=== PATIENT | male | born 1935 | race Caucasian/White ===

== ENCOUNTER 2017-10-12 08:20 | Inpatient (IN) | payer OTHER, MEDICARE ==
--- NOTE | 2017-10-12 08:39 | CPEKG ---
Heart Rate: 110 RR Interval: 545 QRSD Interval: 96 QT Interval: 380 QTC Interval: 515 QRS Bowler: 7 EKG Severity - ABNORMAL ECG - EKG Impression: ATRIAL FIBRILLATION, V-RATE 86-138 EKG Impression: VENTRICULAR PREMATURE COMPLEX EKG Impression: LEFT VENTRICULAR HYPERTROPHY EKG Impression: PROLONGED QT INTERVAL Electronically Signed By: Margi Edwards 12-Oct-2017 15:16:09
[2017-10-12 09:26] LABS: PLATELET COUNT 199 10^3/uL (150-400)
--- NOTE | 2017-10-12 09:34 | EDPHY ---
H & P Stated Complaint: SOB Time Seen by Provider: 10/12/17 08:43 HPI/ROS: CHIEF COMPLAINT: Shortness of breath HISTORY OF PRESENT ILLNESS: 82-year-old male with a history of hypertension and newly diagnosed atrial fibrillation presents with shortness of breath. He was diagnosed with atrial fibrillation 1 month ago. He started metoprolol and Coumadin 1 week ago. He also stopped taking hydrochlorothiazide 1 week ago. Over the past week, he has had difficulty sleeping because of shortness of breath. He wakes in the middle of the night very short of breath and needs to sit up to control his breathing. Last night was particularly difficult. He woke at 2:00 a.m. with shortness of breath and was unable to go back to sleep. No exertional shortness of breath, no chest pain and no leg swelling. No prior similar sx. REVIEW OF SYSTEMS: complete 10 point ROS negative except at noted in the HPI - Personal History Current Tetanus/Diphtheria Vaccine: Yes Current Tetanus Diphtheria and Acellular Pertussis (TDAP): Yes - Medical/Surgical History Hx Asthma: No Hx Chronic Respiratory Disease: No Hx Diabetes: No Hx Cardiac Disease: Yes Hx Renal Disease: No Hx Cirrhosis: No Hx Alcoholism: No Hx HIV/AIDS: No Hx Splenectomy or Spleen Trauma: No Other PMH: htn, previous nosebleed, afib - Social History Smoking Status: Never smoked - Physical Exam Exam: General Appearance: Alert, pleasant Eyes: Pupils equal and round, no conjunctival pallor or injection ENT, Mouth: Mucous membranes moist Neck: Normal inspection Respiratory: Normal respiratory rate, Rales at the right base Cardiovascular: Irregularly irregular rate and rhythm Gastrointestinal: Abdomen is soft and nontender Neurological: A&O, nonfocal exam Skin: Warm and dry, no rash Extremities: Nontender, no pedal edema Psychiatric: Mood and affect normal Constitutional: Initial Vital Signs Temperature (C) 37 C 10/12/17 08:29 Heart Rate 98 10/12/17 08:29 Respiratory Rate 16 10/12/17 08:29 Blood Pressure 173/126 H 10/12/17 08:29 O2 Sat (%) 95 10/12/17 08:29 O2 Delivery Mode Room Air Allergies/Adverse Reactions: No Known Allergies Allergy (Unverified 05/07/15 11:27) Home Medications: Medication Instructions Recorded Metoprolol Tartrate [Lopressor 25 25 mg PO BID 10/12/17 mg (*)] Warfarin Sodium [Coumadin 5MG (*)] 5 mg PO SUMOWEFRSA@18 10/12/17 Warfarin Sodium [Coumadin 7.5MG 7.5 mg PO TUTH@18 10/12/17 (*)] Medical Decision Making - Diagnostics EKG Interpretation: EKG interpreted by me reveals atrial fibrillation, ventricular rate 110, PVC, LVH. Interpretation: Abnormal EKG Imaging Results: Imaging Impressions Chest X-Ray 10/12/17 09:18 Impression: 1. Right lower lobe pneumonia. 2. Recommend follow up until clear. Findings and recommendations discussed with Emergency Department physician, Dr. Margi Edwards at 1025 hours on October 12, 2017. Final report concurs with initial preliminary interpretation. ED Course/Re-evaluation: This patient presents with paroxysmal nocturnal dyspnea over the past few nights , after starting metoprolol. He is currently asymptomatic, with a normal oxygen saturation. Stat EKG reveals atrial fibrillation with a controlled rate , no ischemic changes. Chest x-ray discussed with Dr. Vasquez. Chest x-ray reveals a possible right lower lobe pneumonia. Clinically this patient does not have pneumonia. He has no respiratory symptoms, no fever and no leukocytosis. His presentation is most consistent with congestive heart failure related to atrial fibrillation and possibly beta-blockers. Troponin is in the indeterminate range. EKG reveals no evidence of ischemia. Laboratory results discussed with the patient and his . BNP elevated. Will admit for congestive heart failure. Nitropaste placed and Lasix IV given. The hospitalist service was consulted for admission. 1215: pt had a sustained run of Vtach. Pt felt a head zambrano, but remained alert. BP normal immediately after the episode. Spontaneously converted to Afib. Consulted Dr. Arevalo, will see pt in ED/ICU. Amiodarone 150mg IV given, followed by Amiodarone drip. Pt moved to critical care room and defib pads placed. The patient was seen by Dr. Arevalo in the emergency department. Stat echocardiogram revealed an ejection fraction of 40%. The patient was taken to the laboratory mechanical technician for cardiac catheterization. No further episodes of ventricular tachycardia. I spent a total of 40 minutes of critical care time in obtaining history, performing a physical exam, bedside monitoring of interventions, collecting and interpreting tests and discussion with consultants but not including time spent performing procedures. Organ at risk: Heart Differential Diagnosis: Differential diagnosis includes though it is not limited to pneumonia, pneumothorax, pulmonary embolism, aortic dissection, pericarditis, acute coronary syndrome. - Data Points Laboratory Results: Laboratory Results 10/12/17 08:40 10/12/17 08:40 10/12/17 10/12/17 08:40 08:40 WBC 6.91 10^3/uL 10^3/uL (3.80-9.50) RBC 5.64 10^6/uL 10^6/uL (4.40-6.38) Hgb 17.0 g/dL g/dL (13.7-17.5) Hct 50.8 % % (40.0-51.0) MCV 90.1 fL fL (81.5-99.8) MCH 30.1 pg pg (27.9-34.1) MCHC 33.5 g/dL g/dL (32.4-36.7) RDW 13.6 % % (11.5-15.2) Plt Count 199 10^3/uL 10^3/uL (150-400) MPV 10.8 fL fL (8.7-11.7) Neut % (Auto) 70.3 % % (39.3-74.2) Lymph % (Auto) 20.8 % % (15.0-45.0) [place] % (Auto) 7.4 % % (4.5-13.0) Eos % (Auto) 0.6 % % (0.6-7.6) Baso % (Auto) 0.6 % % (0.3-1.7) Nucleat RBC Rel Count 0.0 % % (0.0-0.2) Absolute Neuts (auto) 4.86 10^3/uL 10^3/uL (1.70-6.50) Absolute Lymphs (auto) 1.44 10^3/uL 10^3/uL (1.00-3.00) Absolute Monos (auto) 0.51 10^3/uL 10^3/uL (0.30-0.80) Absolute Eos (auto) 0.04 10^3/uL 10^3/uL (0.03-0.40) Absolute Basos (auto) 0.04 10^3/uL 10^3/uL (0.02-0.10) Absolute Nucleated RBC 0.00 10^3/uL 10^3/uL (0-0.01) Immature Gran % 0.3 % % (0.0-1.1) Immature Gran # 0.02 10^3/uL 10^3/uL (0.00-0.10) Sodium 144 mEq/L mEq/L (135-145) Potassium 4.9 mEq/L mEq/L (3.5-5.2) Chloride 105 mEq/L mEq/L (97-110) Carbon Dioxide 24 mEq/l mEq/l (22-31) Anion Gap 15 mEq/L mEq/L (8-16) BUN 28 mg/dL H mg/dL (7-23) Creatinine 1.3 mg/dL mg/dL (0.7-1.3) Estimated GFR 53 Glucose 108 mg/dL H mg/dL (70-100) Calcium 9.5 mg/dL mg/dL (8.5-10.4) Troponin I 0.055 ng/mL H ng/mL (0.000-0.034) NT-Pro-B Natriuret Pep 3750 pg/mL H pg/mL (0-450) Medications Given: Hydrocodone Bitart/Acetaminophen ([place] 5/325) 1 - 2 tab PO Q4HRS PRN PRN Reason: Pain, Moderate Stop: 10/22/17 16:05 Last Admin: 10/12/17 20:52 Dose: 1 tab Metoprolol Tartrate (Lopressor) 25 mg PO BID ANGELA Stop: 04/10/18 20:59 Last Admin: 10/12/17 20:52 Dose: 25 mg Discontinued Medications Aspirin Buffered (Aspirin Ec) 325 mg PO ONCALL ONE Stop: 10/12/17 13:07 Last Admin: 10/12/17 17:06 Dose: Not Given Diazepam (Valium) 5 mg PO ONCALL ONE Stop: 10/12/17 13:07 Last Admin: 10/12/17 17:07 Dose: Not Given Diphenhydramine HCl (Benadryl) 25 mg PO ONCALL ONE Stop: 10/12/17 13:07 Last Admin: 10/12/17 17:08 Dose: Not Given Famotidine (Pepcid) 20 mg PO ONCALL ONE Stop: 10/12/17 13:07 Last Admin: 10/12/17 17:08 Dose: Not Given Furosemide (Lasix Injection) 20 mg IVP EDNOW ONE Stop: 10/12/17 10:38 Last Admin: 10/12/17 10:42 Dose: 20 mg Amiodarone HCl (Amiodarone Hcl) 200 mls @ 0 mls/hr IV EDNOW ONE; Per Protocol PRN Reason: Protocol Stop: 10/12/17 12:16 Last Admin: 10/12/17 12:39 Dose: 200 mls Amiodarone HCl (Amiodarone Hcl) 100 mls @ 600 mls/hr IV EDNOW ONE Stop: 10/12/17 12:24 Last Admin: 10/12/17 12:25 Dose: 100 mls Nitroglycerin (Nitro-Bid 2%) 1 inch TP EDNOW ONE Stop: 10/12/17 10:38 Last Admin: 10/12/17 10:42 Dose: 1 inch Departure - Departure Disposition: To OP Cath/Surgery Clinical Impression: Ventricular tachycardia Congestive heart failure Qualifiers: Heart failure type: systolic Heart failure chronicity: acute Qualified Code(s) : I50.21 - Acute systolic (congestive) heart failure Condition: Serious
[2017-10-12] MEDS ORDERED: NITROGLYCERIN 2% 1 GM PACKET TP ONE (10:37)
[2017-10-12] MEDS ORDERED: FUROSEMIDE 20 MG/2 ML VIAL IVP ONE (10:37)
[2017-10-12] MEDS ORDERED: AMIODARONE HCL 200 ML IV ONE (12:15)
[2017-10-12] MEDS ORDERED: AMIODARONE HCL 100 ML IV ONE (12:15)
--- NOTE | 2017-10-12 12:28 | CPEKG ---
Heart Rate: 80 RR Interval: 750 QRSD Interval: 98 QT Interval: 420 QTC Interval: 485 QRS [place]: -16 T Wave [place]: 17 EKG Severity - ABNORMAL ECG - EKG Impression: ATRIAL FIBRILLATION, V-RATE 57-103 EKG Impression: LVH WITH SECONDARY REPOLARIZATION ABNORMALITY EKG Impression: BORDERLINE PROLONGED QT INTERVAL Electronically Signed By: Margi Edwards 12-Oct-2017 15:14:42
--- NOTE | 2017-10-12 12:53 | PDCARCONS ---
Cardiology Consult Reason for Consult: Wide complex tachycardia on telemetry Chief Complaint: Fullness in the head Requesting Physician: ER Team History of Present Illness: Patient is an 82 y/o male with history of HTN (on HCTZ alone), with newly diagnosed atrial fibrillation (followed by [facility] with recent start on coumadin therapy, with rhythm monitor and echocardiogram pending), who presented to [facility] with complaints of feeling poorly to the pharmacy coumadin clinic earlier today. Patient reports that for the past 4-6 days there has been a "fullness" in his head as well as an overall "warmth" sensation to the head. In the ER today, blood pressure is quite elevated (150/120 mm Hg). When questioned further, patient's chief complaint of shortness of breath with limited activity. Start on coumadin led to the patient drawing the conclusion that the symptoms currently noted might be secondary to the newly started medical therapy. No lower extremity swelling, but PND and orthopnea has been noted. Patient was scheduled for a formal sleep study in near future given the newly diagnosed atrial fibrillation. No abnormal bleeding has been noted at present, but the patient has had issues with epistaxis in the past (not while on coumadin). At present, the patient is resting comfortably, but while in the ER, on telemetry, the patient appreciated his typical "fullness" and "shortness of breath", and VT was noted on telemetry (recorded, not likely to be atrial fibrillation with aberrant conduction). No fevers or chills, no nausea or emesis, no chest pains or pressure. Remainder of the 12 point review of systems was unremarkable. History Information - Allergies/Home Medication List Allergies/Adverse Reactions: No Known Allergies Allergy (Unverified 05/07/15 11:27) Home Medications: Metoprolol Tartrate [Lopressor 25 mg (*)] 25 mg PO BID 10/12/17 [Last Taken 21:00] Warfarin Sodium [Coumadin 5MG (*)] 5 mg PO SUMOWEFRSA@10/12/17 [Last Taken ] Warfarin Sodium [Coumadin 7.5MG (*)] 7.5 mg PO TUTH@18 10/12/17 [Last Taken Unknown] I have personally reviewed and updated: family history, medical history, social history, surgical history Past Medical History: - Past Medical History atrial fibrillation, hypertension - Surgical History Reports: no pertinent surgical hx - Family History Positive for: CAD, hypertension, stroke - Social History Smoking Status: Never smoked Alcohol Use: Other (Guinness at lunch routinely) Drug Use: None Cardiac History - Cardiac History Cardiac Risk Factors: hypertension (>140/90), family history of premature CAD, age > 65, male Timing/Duration: Days Severity: moderate Severity Scale: 5 Location: other (fullness to the head) Activities at Onset: none Modifying Factors: improves with: breathing, rest Associated Symptoms: shortness of breath, weakness JESSEE Risk Evaluation age greater or equal to 65: yes greater or equal to 3 CAD risk factors: no known CAD(stenosis greater or eqaul to 50%): no ASA use in past 7 days: yes severe angina(greater or equal to 2 episodes in 24hrs): no EKG ST changes greater or equal to 0.5mm: no positive cardiac marker: yes Total Score: 3 JESSEE Score: 13.2% risk Age in Years: 75 or older Sex: Male Congestive Heart Failure History: No Hypertension History: Yes Stroke/TIA/Thromboembolism History: No Vascular Disease History: No Diabetes Mellitus: No [id number] Score: 3 Physical Exam Physical Exam: Temp Pulse Resp BP Pulse Ox 36.8 C 74 16 162/110 H 93 10/12/17 12:37 10/12/17 12:37 10/12/17 12:37 10/12/17 12:37 10/12/17 12:37 Constitutional: no apparent distress, appears nourished, not in pain Eyes: PERRL Ears, Nose, Mouth, Throat: moist mucous membranes, hearing normal Cardiovascular: irregularly irregular, pulses symmetric bilaterally, No JVD, No tachycardia, No edema Peripheral Pulses: 2+: dorsalis-pedis (R), dorsalis-pedis (L) Respiratory: no respiratory distress, no rales or rhonchi, clear to auscultation Gastrointestinal: normoactive bowel sounds Skin: warm, No rash Musculoskeletal: full muscle strength Neurologic: AAOx3, sensation intact bilaterally, CN II-XII Intact Psychiatric: interacting appropriately, not anxious, not encephalopathic Lab and Imaging 10/12/17 08:40 10/12/17 08:40 WBC 6.91 10^3/uL (3.80-9.50) 10/12/17 08:40 RBC 5.64 10^6/uL (4.40-6.38) 10/12/17 08:40 Hgb 17.0 g/dL (13.7-17.5) 10/12/17 08:40 Hct 50.8 % (40.0-51.0) 10/12/17 08:40 MCV 90.1 fL (81.5-99.8) 10/12/17 08:40 MCH 30.1 pg (27.9-34.1) 10/12/17 08:40 MCHC 33.5 g/dL (32.4-36.7) 10/12/17 08:40 RDW 13.6 % (11.5-15.2) 10/12/17 08:40 Plt Count 199 10^3/uL (150-400) 10/12/17 08:40 MPV 10.8 fL (8.7-11.7) 10/12/17 08:40 Neut % (Auto) 70.3 % (39.3-74.2) 10/12/17 08:40 Lymph % (Auto) 20.8 % (15.0-45.0) 10/12/17 08:40 [place] % (Auto) 7.4 % (4.5-13.0) 10/12/17 08:40 Eos % (Auto) 0.6 % (0.6-7.6) 10/12/17 08:40 Baso % (Auto) 0.6 % (0.3-1.7) 10/12/17 08:40 Nucleat RBC Rel Count 0.0 % (0.0-0.2) 10/12/17 08:40 Absolute Neuts (auto) 4.86 10^3/uL (1.70-6.50) 10/12/17 08:40 Absolute Lymphs (auto) 1.44 10^3/uL (1.00-3.00) 10/12/17 08:40 Absolute Monos (auto) 0.51 10^3/uL (0.30-0.80) 10/12/17 08:40 Absolute Eos (auto) 0.04 10^3/uL (0.03-0.40) 10/12/17 08:40 Absolute Basos (auto) 0.04 10^3/uL (0.02-0.10) 10/12/17 08:40 Absolute Nucleated RBC 0.00 10^3/uL (0-0.01) 10/12/17 08:40 Immature Gran % 0.3 % (0.0-1.1) 10/12/17 08:40 Immature Gran # 0.02 10^3/uL (0.00-0.10) 10/12/17 08:40 Sodium 144 mEq/L (135-145) 10/12/17 08:40 Potassium 4.9 mEq/L (3.5-5.2) 10/12/17 08:40 Chloride 105 mEq/L (97-110) 10/12/17 08:40 Carbon Dioxide 24 mEq/l (22-31) 10/12/17 08:40 Anion Gap 15 mEq/L (8-16) 10/12/17 08:40 BUN 28 mg/dL (7-23) H 10/12/17 08:40 Creatinine 1.3 mg/dL (0.7-1.3) 10/12/17 08:40 Estimated GFR 53 10/12/17 08:40 Glucose 108 mg/dL (70-100) H 10/12/17 08:40 Calcium 9.5 mg/dL (8.5-10.4) 10/12/17 08:40 Troponin I 0.055 ng/mL (0.000-0.034) H 10/12/17 08:40 NT-Pro-B Natriuret Pep 3750 pg/mL (0-450) H 10/12/17 08:40 Visualized and Interpreted Chest x-ray results: Yes Chest X-ray Interpretation: no infiltrate, normal Visualized and Interpreted EKG results: Yes EKG Interpretation: Positive for: other (atrial fibrillation) A/P Assessment: Patient is an 82 y/o male with history of HTN (on therapy) and rather newly noted atrial fibrillation (on coumadin, INR of 1.7 with [id number] score of 3) , who presents to [facility] ER after being seen by pharm coumadin clinic with complaints of "feeling poorly". While in the ER, the patient had a protracted run of VT. Symptoms were noted with this event, and were quite similar to that which has been noted for the past 3-4 days. Ongoing rhythm monitor (attached to the patient this morning), and outpatient echo has been scheduled. Plan: (1) Recommendations for echocardiogram now for assessment of LVEF, wall motion , chamber dimensions, and valve morphology (2) Likely angiography today given the symptoms and the appreciated VT in the ER (3) Would continue HCTZ, but more aggressive therapy is indicated (4) Would continue coumadin (manipulation of therapy is underway to achieve therapeutic levels) (5) Further recommendations as work up continues.
[2017-10-12] MEDS ORDERED: FAMOTIDINE 20 MG TAB PO ONE (13:06)
[2017-10-12] MEDS ORDERED: ASPIRIN EC 325 MG TAB PO ONE (13:06)
[2017-10-12] MEDS ORDERED: DIAZEPAM 5 MG TAB PO ONE (13:06)
[2017-10-12] MEDS ORDERED: TEMAZEPAM 15 MG CAP PO PRN (13:06)
[2017-10-12] MEDS ORDERED: NITROGLYCERIN 0.4 MG BTL SL PRN ×2 (13:06→16:06)
[2017-10-12] MEDS ORDERED: ACETAMINOPHEN 325 MG TAB PO PRN (13:06)
[2017-10-12] MEDS ORDERED: diphenhydrAMINE 25 MG CAP PO ONE (13:06)
[2017-10-12] MEDS ORDERED: NS 1,000 ML IV SCH (13:15)
[2017-10-12 13:26] LABS: PLATELET COUNT 169 10^3/uL (150-400)
--- NOTE | 2017-10-12 13:37 | PDPROPOC ---
Sedation Plan of Care Sedation Plan of Care: vital signs stable, mental status noted, patient educated of risks, benefits, alternatives, patient can tolerate sedation ASA Classification: ASA 3 Planned drugs: fentanyl, midazolam Mallampati Score: Class 3 Mallampati Reference Image: Patient passed 3-3-2 rule?: Yes
[2017-10-12 13:39] LABS: INR 1.57 (0.83-1.16); PROTIME(PATIENT) 18.9 SEC (12.0-15.0)
[2017-10-12] MEDS ORDERED: LIDOCAINE 1% 300 MG/30 ML SDV ONE ×2 (13:41→15:00)
[2017-10-12] MEDS ORDERED: IOPAMIDOL (ISOVUE-370) 150 ML BTL IV ONE ×2 (13:41→15:11)
[2017-10-12] MEDS ORDERED: MIDAZOLAM 2 MG/2 ML VIAL ONE (14:24)
[2017-10-12] MEDS ORDERED: fentaNYL 100 MCG/2 ML INJ ONE ×2 (14:24→15:31)
[2017-10-12] MEDS ORDERED: METOPROLOL TARTRATE 5 MG/5 ML INJ ONE ×2 (14:28→14:38)
[2017-10-12] MEDS ORDERED: VERAPAMIL 5 MG/2 ML VIAL ONE (14:57)
[2017-10-12] MEDS ORDERED: HEPARIN 10,000 UNIT/10 ML MDV (1,000 UNIT/ML) ONE (14:57)
--- NOTE | 2017-10-12 15:08 | ECHO ---
[email or web address] [address] [address] Main: [phone] Fax: Transthoracic Echocardiogram Name: MINGO ISRAEL MR#: [id number] Study Date: 10/12/2017 Study Time: 01:37 PM Date of : 1935 Age: 82 year(s) Height: 175.3 cm (69 in.) Weight: 73.94 kg (163 lb.) BSA: 1.89 m2 Gender: Male Examination: Echo Indication: V-tach, PNA Image Quality: Contrast: Requested by: Margi Edwards BP: 148 mmHg/110 mmHg Heart Rate: Rhythm: Indication: V-tach, PNA Procedure Staff Account Installation Specialist: Aleks Benton RDCS Reading Physician: Endy Arevalo MD Requesting Provider: Conclusions: Normal size left ventricle. Mildly to moderately reduced systolic funtion. The ejection fraction is estimated to be 35-40 %. There is basilar to mid anteroseptum hypokinesis. There is basilar to mid inferoseptal hypokinesis. Normal size right ventricle. The left atrium is severely dilated. The right atrium is severely dilated. Mild mitral valve leaflet calcification is present. The aortic valve is tri-leaflet and functions normally. Mild aortic valve regurgitation is present. The pulmonary artery pressure is mildly increased. No pericardial effusion. Measurements: Chambers Valvular Assessment AV/MV Valvular Assessment TV/PV Normal Normal Normal Name Value Range Name Value Range Name Value Range Ao Deena (MM): 4.2 cm (2.2 cm-3.7 AV Vmax: 1.02 m/s (1 m/s-1.7 TR Vmax: 3.01 mm/s ( - ) cm) m/s) TR PGmax: 36 mmHg ( - ) IVSd (2D): 1.4 cm (0.6 cm-1.1 AV maxP mmHg ( - ) syst. PAP: 41 mmHg ( - ) cm) LVOT Vmax: 0.76 m/s (0.7 m/s-1.1 LVDd (2D): 4.5 cm (4.2 cm-5.9 m/s) cm) AR (PHT): 759 ms ( - ) LVDs (2D): 3.8 cm (2.1 cm-4 MV E Vmax: 0.89 m/s ( - ) cm) MV A Vmax: 0.37 m/s ( - ) LVPWd (2D): 1.3 cm (0.6 cm-1 MV E/A: 2.41 ( - ) cm) LVEF (2D): 35 (>=54 %) EF Range: 35-40 % Patient: MINGO ISRAEL Study Date: 10/12/2017 Page 1 of 2 01:37 PM Continued Measurements: Chambers Valvular Assessment AV/MV Valvular Assessment TV/PV Name Value Name Value Name Value LADs Lon.2 cm MV E/E' Septal: 22.80 CVP (est.): 5 mmHg LA Area: 27.1 cm2 MV E/E' Lateral: 14.90 LA Volume: 98 ml AR Vmax: 4.34 cm/s LA Volume Index: 51.9 ml/m2 Findings: Left Ventricle: Normal size left ventricle. Mildly to moderately reduced systolic funtion. The ejection fraction is estimated to be 35-40 %. There is basilar to mid anteroseptum hypokinesis. There is basilar to mid inferoseptal hypokinesis. Right Ventricle: Normal size right ventricle. Left Atrium: The left atrium is severely dilated. Right Atrium: The right atrium is severely dilated. Mitral Valve: Mild mitral valve leaflet calcification is present. Aortic Valve: The aortic valve is tri-leaflet and functions normally. Mild aortic valve regurgitation is present. Tricuspid Valve: Mild tricuspid regurgitation is present. The pulmonary artery pressure is mildly increased. Pulmonic Valve: The pulmonic valve is normal in appearance and function. Aorta: The aorta is normal. Pericardium: No pericardial effusion. (No Signature Object) Patient: MINGO ISRAEL Study Date: 10/12/2017 Page 2 of 2 01:37 PM [id number]
[2017-10-12] MEDS ORDERED: NITROGLYCERIN 0.4 MG BTL SL ONE (15:14)
--- NOTE | 2017-10-12 15:18 | PDDXCAT ---
Diagnostic Cath Note - . Date: 10/12/17 Dental Front Office Assistant: Kathi Indication: other (The patient was feeling short of breath and head fullness. He was found to be in VT on telemetry. ) - Procedure Access: left wrist Procedure: left heart catheterization, coronary angiography, left ventriculogram - Materials Left Heart Cath materials: standard multipack (JL4, JR4, pigtail) - Findings-Left Heart Catheterization LM: LM is 8mm in size and birfurcates into an LAD and circumflex system. JESSEE III flow. LAD: There is a long tubular 50% stenosis in the ostial and proximal LAD that is calcified. There is a 95% stenosis of the second and principle diagonal at the takeoff of the LAD. The first diag small vessel less than 1mm in size with 99% stenosis at its takeoff of the LAD. Distal to the second diag takeoff is a series of 50% stenoses. There is JESSEE III flow to the distal vessel. LCX: The left circumflex is 4 mm in size. There is a 40% ostial stenosis and a 30% proximal stenpsis. The circumflex is dominant. RCA: The RCA is nondominant. JESSEE III flow. EDP: 21 mmHg LVEF: The EF is decreased at 35%. There is basal inferior wall akinesis and distal anterior wall and apical wall hypokinesis, which is severe. There is evidence of 2-3+ MR on pressurized injection. 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 Complications: NONE. Estimated blood loss: <50ml Closure method: other (Dr. Bethea tried to get access from the right groin, which was very tortuous so he had to abandon the efra site as an avenue for heart cath. We held manual pressure at the efra site and used an angioseal closure device. I then gained access from the left radial access. 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 He has ostial d1 and d2 disease which may be the cause of his ischemia and or rhythm disturbance (ventricular tachycardia). His EF is markedly decreased at 35%. He is also severely hypertensive and has very tortuous iliac vessels, which precluded cath by Dr. Arevalo from the right femoral approach. On abdominal angiogram with bilateral iliac runoff there was profound iliac tortuosity bilaterally, worse on the right than the left. There was no alison aneurysm or dissection and no evidence of renal artery stenosis. The patient is severely hypertensive. Plan: The pt will require ICU admission because of NSVT and new onset atrial fibrillation. He is also severely hypertensive and may require intravenous anti- hypertensive agents for good control. Following straight cath because of inability to urinate while lying down in spite of a full bladder the patient became relatively hypotensive and bradycardic. The pt may benefit from a nuclear stress test if he is found to have anterior ischemia in the LAD territory, bypass surgery or complex intervention could be considered to repair the ostial principle diagonal branch and LAD proper. Intervention: NONE. Patient Problems: Problems Problem Status Onset Congestive heart failure Acute Ventricular tachycardia Acute Primary osteoarthritis of right knee Acute
[2017-10-12] MEDS ORDERED: niCARdipine 25 MG/10 ML VIAL IV ONE (15:36)
[2017-10-12] MEDS ORDERED: ATROPINE SULFATE 1 MG/10 ML SYR IVP PRN (16:06)
[2017-10-12] MEDS ORDERED: OXYCODONE/APAP 5/325 TAB PO PRN (16:06)
[2017-10-12] MEDS ORDERED: ONDANSETRON 4 MG/2 ML VIAL IVP PRN (16:06)
--- NOTE | 2017-10-12 18:36 | GHP ---
[f rep st] HISTORY AND PHYSICAL DATE OF ADMISSION: 10/12/2017 CHIEF COMPLAINT: Feeling poorly. HISTORY OF PRESENT ILLNESS: This is an 82-year-old man with a recent diagnosis of atrial fibrillatio n, seen by [facility]. He had been started on Coumadin as well as metoprolol. He went in for an INR check today, told his pharmacist some of his symptoms, was sent to the ED for further evaluation. He tells me that he has had this difficulty sleeping due to shortness of breath and a warm feeling. It seems to get better when he gets up out of bed. He has had to walk out on his balcony because i t was cooler out there. He notes a decrease in his functional capacity over the last 2-3 weeks with worsening fatigue as well as dyspnea while walking uphill. He does not note any chest pain. He pres ented to the ED with these findings, was initially diagnosed with new CHF. [facility] had an episode of ventricular tachycardia. This triggered a stat cardiology consultation as w ell as catheterization. In the catheterization, there was disease noted; however, it would have requ ired a very complicated intervention. He also had an EF of 35% with wall motion abnormalities. PAST MEDICAL/SURGICAL HISTORY: 1. Recently diagnosed atrial fibrillation. 2. Hypertension. MEDICATIONS: Please see medication reconciliation. ALLERGIES: No known drug allergies. FAMILY HISTORY: Parents are . SOCIAL HISTORY: He is accompanied by his partner. He drinks. He does not smoke. REVIEW OF SYSTEMS: 10-point review of systems is conducted and is negative except per HPI. PHYSICAL EXAM: VITAL SIGNS: Blood pressure 129/102, heart rate 61, respiration rate 20, saturating 96% on room air. Temperature 36.7. GENERAL: The patient is a pleasant man who is resting comfortab ly, in no acute distress. HEENT: Normocephalic, atraumatic. CARDIOVASCULAR: An irregularly irregu lar rhythm. There are no murmurs, rubs, or gallops. PULMONARY: He is in no respiratory distress. Lungs are clear to auscultation bilaterally. ABDOMEN: Soft, nontender, nondistended. SKIN: No kit h. : No Rojo. NEUROLOGIC: Alert and oriented x3. PSYCHIATRIC: Normal mood and affect. EXTRE MITIES: His left wrist has a TR band in place. LABS: Initial troponin 0.055. BNP is 3750. Creatinine 1.1. INR 1.57. CBC is normal. DATA: 1. Cath as above. 2. Echocardiogram showing an ejection fraction of 35% to 40%, basilar to mid anteroseptal hypokinesi s with basilar to mid inferoseptal hypokinesis. 3. ECG, which I personally viewed and interpreted, shows atrial fibrillation. There is nothing acut mere ischemic. 4. Chest x-ray, which I personally viewed and interpreted, shows nothing acute, although the radiolo gist has read a right lower lobe pneumonia. IMPRESSION AND PLAN: 1. Coronary artery disease: He has ostial diagonal 1 and diagonal 2 disease as well as a 50% left a nterior descending artery disease. He had an episode of nonsustained supraventricular tachycardia in the emergency department. Per Dr. Armenta, intervention would be complicated. He received a bolus o f amiodarone. He has received aspirin. We will continue his warfarin. Considering viability study. Bypass is also a consideration. 2. Atrial fibrillation: He is currently rate controlled. Continue his metoprolol as well as antico agulation which will be increased, given his slightly subtherapeutic INR. 3. Hypertension: Currently not significantly hypertensive. Cardiac medications will be appropriate . 4. Systolic congestive heart failure: He appears compensated at this point. He will need close fol lowing of this as well as up titration of beta jazmin and angiotensin-converting enzyme inhibitor as tolerated. 5. Deep venous thrombosis prophylaxis: Warfarin. /[id number]/MODL
[2017-10-12] MEDS: METOPROLOL TARTRATE 25 MG TAB PO SCH (20:52)
[2017-10-12] MEDS: HYDROCODONE/APAP 5/325 TAB PO PRN (20:52)
[2017-10-13 03:42] LABS: INR 1.55 (0.83-1.16); PROTIME(PATIENT) 18.7 SEC (12.0-15.0)
[2017-10-13] MEDS: METOPROLOL TARTRATE 25 MG TAB PO SCH ×2 (08:25→20:57)
--- NOTE | 2017-10-13 09:18 | HOSPPROG ---
Hospitalist Progress Note Assessment/Plan: # CAD - s/p cath complicated anatomy with diagonal disease and LAD disease without intervention - R groin arteries very serpiginous, not amenable to R groin approach - consideration for viability study # VT - about 50s in the ED; likely d/t ischemia # compensated sCHF - EF 35% - will need appropriate cardiac meds # a-fib - relatively new; rate better controlled s/p amiodarone - cont metop PO, warfarin (INR slightly low) # htn - controlled currently on metop Subjective: no complaints; asking about leaving the hospital; concerned about not being able to sail this summer Objective: Vital Signs Temp Pulse Resp BP Pulse Ox 37.1 C 95 21 H 126/90 H 90 L 10/13/17 08:00 10/13/17 08:25 10/13/17 08:00 10/13/17 08:25 10/13/17 08:00 Laboratory Results 10/12/17 13:15 10/13/17 03:15 10/12/17 10/13/17 10/14/17 05:59 05:59 05:59 Intake Total 1450 Output Total 2100 Balance -650 PT 18.7 SEC (12.0-15.0) H 10/13/17 03:15 INR 1.55 (0.83-1.16) H 10/13/17 03:15 high risk - Physical Exam Constitutional: no apparent distress, appears nourished Cardiovascular: no murmur, rub, or gallop, irregularly irregular Respiratory: no respiratory distress, no rales or rhonchi, clear to auscultation Gastrointestinal: normoactive bowel sounds, soft, non-tender abdomen, no palpable masses ICD10 Worksheet Patient Problems: Problems Problem Status Onset Primary osteoarthritis of right knee Acute Ventricular tachycardia Acute Congestive heart failure Acute
--- NOTE | 2017-10-13 09:51 | ASMTCASEMG ---
Living Arrangements What is your living Answers: With Spouse arrangement? Who do you live with? Type Of Residence What kind of residence do Answers: House you live in? Discharge Plan Comments Coordination Status Comments Notes: Patient is an 82yo male who recently was diagnosed with AFIB by [facility]. He was admitted for coronary artery disease, AFIB, hypertension, systolic congestive heart failure, and deep venous thrombosis prophylaxis. Cardiac cath and intervention cardiac procedure have been ordered. D/C plan TBD. CM will follow. Date Signed: 10/13/2017 09:50 AM Electronically Signed By:Kaylyn Villagomez LCSW
--- NOTE | 2017-10-13 12:42 | PDMN ---
Medical Necessity Medical necessity: est los>2mn for CAD, NSVT, severely hypertensive on admission , systolic CHF,and afib; emergent cath with [facility] vessel coronary disease w/ flow limiting obstruction; admit to ICU, adjust medications, consider CABG or complex intervention to repair ostial diag branch and LAD; per order, H&P and cath report 10/12/17
[2017-10-13] MEDS ORDERED: WARFARIN SODIUM 7.5 MG TAB PO ONE (17:15)
[2017-10-13] MEDS: HYDROCODONE/APAP 5/325 TAB PO PRN (20:57)
[2017-10-13] MEDS: ENOXAPARIN 80 MG/0.8 ML SYR SC SCH (21:11)
--- NOTE | 2017-10-13 21:16 | PDCARPN ---
Cardiology Progress Note Chief Complaint: Patient without cardiovascular complaints today Assessment/Plan: Assessment: Patient is an 82 y/o male [facility] after being told to proceed to ER after INR assessment. In the ER, the patient was noted to be in atrial fibrillation with rapid ventricular response. On telemetry, the patient was then noted to go into VT, with symptoms. No syncope was noted, but the patient was fully aware of the arrhythmia. Given these events, the patient was taken to the cardiac laborer/key man. Attempt at groin access was unsuccessful given the degree of tortuosity appreciated, and wrist access was achieved. Diffuse disease was noted to the LAD system. Moderate reduction to LVEF was also noted (30-35%). Review of the cath films with uncertain degree of stenosis to the LAD , but what appears to be critical lesions to the ostium of D1 and D2. The proximal and mid portion of the LAD also appeared to be diffusely diseased. Rate control has been noted with the addition of beta blockers. Lengthy discussion tonight with patient and and both myself and Dr. Sukhi Armenta about the complexity of the lesions, and our concerns about the arrhythmias noted - specifically the ventricular tachycardia. Ongoing use of coumadin for CVA prophylaxis given the newly noted atrial fibrillation (lovenox bridging in place while patient remains subtherapeutic). Plan: (1) Recommendations for patient to have Amarilis MPI tomorrow to delineate the ischaemia. If fixed (infarcted) regions are also noted, and are of significant percentage of the myocardium, would consider PET scan for viability. (2) Patient will be presented at Heart Team meeting with interventional and CT surgery review of the films to determine what is the best option from our perspective. Further discussion with the patient is also indicated after these conferences are completed. Patient was in agreement with the stress testing, but very much wanting to go home. Subjective: No cardiovascular complaints Reviewed/Discussed With: family, hospitalist Objective: Vital Signs (8 Hrs) Pulse Resp BP Pulse Ox 10/13/17 14:00 95 18 133/82 H 92 Intake/Output (24 Hrs) 10/12/17 10/13/17 10/14/17 05:59 05:59 05:59 Intake Total 1450 750 Output Total 2100 700 Balance -650 50 Intake: Oral (ml) 500 750 IV Infused (ml) 950 Ns 1,000 ml @ 75 mls/hr 800 IV CONT ANGELA Rx#: [id number] Output: Urine (ml) 2100 700 Urinal 700 700 Other: Weight 74 kg Number of Voids Urinal 1 Result Diagrams: 10/12/17 13:15 10/13/17 03:15 Telemetry: atrial fibrillation with controlled (<100 bpm) heart rate - Physical Exam Constitutional: WDWN, healthy appearing, no apparent distress Eyes: PERRL, EOMI Ears, Nose, Mouth, Throat: moist mucous membranes Cardiovascular: systolic murmur, irregularly irregular, pulses symmetric bilat Peripheral Pulses: 2+: dorsalis-pedis (R), dorsalis-pedis (L) Respiratory: clear to auscultate bilat, no crackles, no wheezes Gastrointestinal: normoactive bowel sounds Skin: no edema Musculoskeletal: no muscular tenderness Neurologic: AAOx3, CN II-XII grossly intact Psychiatric: following commands ICD10 Worksheet Patient Problems: Problems Problem Status Onset Congestive heart failure Acute Ventricular tachycardia Acute Primary osteoarthritis of right knee Acute
[2017-10-14] MEDS ORDERED: OXYMETAZOLINE 30 ML NASAL SPRAY EACHNARE PRN (04:44)
[2017-10-14 06:10] LABS: INR 1.54 (0.83-1.16); PROTIME(PATIENT) 18.6 SEC (12.0-15.0)
[2017-10-14] MEDS ORDERED: REGADENOSON 0.4 MG/5 ML SYR IVP ONE (09:26)
[2017-10-14] MEDS: METOPROLOL TARTRATE 50 MG TAB PO SCH ×2 (10:05→21:11)
[2017-10-14] MEDS: LISINOPRIL 5 MG TAB PO SCH (10:05)
--- NOTE | 2017-10-14 10:12 | CPIP ---
[f rep st] INVASIVE CARDIAC PROCEDURE DATE OF PROCEDURE: 10/14/2017 PROCEDURE PERFORMED: Lexiscan stress test. INDICATIONS: Known coronary disease. Functional assessment for ischemia versus infarct. Cardiomyop athy. COMPLICATIONS: None. DESCRIPTION OF PROCEDURE: Informed consent was obtained. The patient was established to continuous telemetry monitoring with frequent blood pressure monitoring and continuous oxygen saturation monitor ing. He received Lexiscan and technetium per protocol. He tolerated the procedure well. FINDINGS: 1. Resting EKG: Atrial fibrillation with PVCs. Delayed R-wave progression. LVH. 2. Stress EKG: Persistent atrial fibrillation with no other significant arrhythmia and no ST change s. 3. Resting heart rate 100 beats per minute. Resting blood pressure 142/99 with an oxygen saturation 96%. Peak heart rate 108 with a pressure of 130/97 and saturation of 97%. CONCLUSIONS: Uneventful Lexiscan infusion. Await nuclear imaging. /[id number]/MODL
--- NOTE | 2017-10-14 10:25 | PDCARPN ---
Cardiology Progress Note Assessment/Plan: Assessment/plan: 82-year-old male with new diagnosis of atrial fibrillation. Admitted with dyspnea and found to have a cardiomyopathy with an ejection fraction of 35-40%. Had sustained VT in the emergency department. He did undergo angiogram on October 13 which showed moderate LAD disease and significant disease in the ostia of both diagonal vessels. This would be complex PCI. Therefore, the decision was made to perform myocardial perfusion imaging to assess whether he has infarct or ischemia and whether he would be candidate for high-risk PCI versus CABG. Other history includes hypertension and epistaxis. 1. Coronary disease: As detailed above. He is not having an acute coronary syndrome. Await nuclear images from his Lexiscan stress test. He will require resting scan tomorrow. He had his stress scan today. Continue beta-jazmin, ROSALIE-inhibitor. Will add statin. Will hold off on aspirin given his epistaxis at the moment. He has been covered with Lovenox up until this morning. 2. Cardiomyopathy: He appears euvolemic. Will switch to Toprol once we understand what his dose of metoprolol is going to be. May need to up titrate lisinopril as well. No need for spironolactone at this time. 3. Ventricular tachycardia: None over the past 24 hr. He did have sustained VT in the ER. Up titrate beta-jazmin. Ischemic evaluation is underway. 4. Atrial fibrillation: Up titrate beta blockers as he is suboptimally rate controlled. He will require chronic anticoagulation for CHADS2 Vasc score of 4. However this is complicated due to his history of epistaxis an ongoing epistaxis. Currently anticoagulation is on hold. 5. Hypertension: A titrate beta-blockers. Will probably need more lisinopril as well. 6. Epistaxis: Discussed with Hospital Medicine. May need nasal packing and/or ENT consult. Anticoagulation on hold temporarily. Greater than 30 min was spent in chart review, direct patient care, discussion with other physicians. 10/14/17 10:28 Subjective: He developed epistaxis early this morning and continues to of bleed. It did stop with a nasal clamp but he took it off and it bled again. He has not had angina or dyspnea. He actually laid flat to sleep. Reviewed/Discussed With: family, hospitalist, multidisciplinary team Objective: Vital Signs (8 Hrs) Temp Pulse Resp BP Pulse Ox 10/14/17 08:00 36.4 C 85 161/121 H 93 10/14/17 04:00 108 H 25 H 153/111 H 10/14/17 02:22 36.7 C 89 152/106 H 94 Intake/Output (24 Hrs) 10/13/17 10/14/17 10/15/17 05:59 05:59 05:59 Intake Total 1450 1100 Output Total 2100 700 Balance -650 400 Intake: Oral (ml) 500 1100 IV Infused (ml) 950 Ns 1,000 ml @ 75 mls/hr 800 IV CONT ANGELA Rx#: [id number] Output: Urine (ml) 2100 700 Urinal 700 700 Other: Weight 74 kg Number of Voids Urinal 1 3 Appears fatigued. JVP less than 10. Irregularly irregular rhythm without murmur. No S3 Lungs clear anteriorly and laterally. No lower extremity edema. Right femoral arteriotomy site clean dry and intact with minimal ecchymoses and no hematoma. Left radial arteriotomy site with minimal ecchymoses. Left Hand is neurovascularly intact. Result Diagrams: 10/14/17 05:45 10/13/17 03:15 EKG: Atrial fibrillation. PVCs. Delayed R-wave progression. LVH. Telemetry: Atrial fibrillation with periods of rapid ventricular response. ICD10 Worksheet Patient Problems: Problems Problem Status Onset Primary osteoarthritis of right knee Acute Ventricular tachycardia Acute Congestive heart failure Acute
[2017-10-14] MEDS: METOPROLOL TARTRATE 25 MG TAB PO SCH (11:21)
[2017-10-14] MEDS: ENOXAPARIN 80 MG/0.8 ML SYR SC SCH (11:21)
--- NOTE | 2017-10-14 11:42 | HOSPPROG ---
Hospitalist Progress Note Assessment/Plan: # epistaxis - i have paged ENT - they will consult - afrin on gauze - hold AC # CAD - s/p cath complicated anatomy with diagonal disease and LAD disease without intervention - nuclear stress today - he will need definitive management per cards, still deciding on the best course - R groin arteries very serpiginous, not amenable to R groin approach # VT - about 50s in the ED; likely d/t ischemia - metop 50 biud # compensated sCHF - EF 35% - will need appropriate cardiac meds # a-fib - relatively new; rate better controlled s/p amiodarone - cont metop PO, hold warfarin # htn - metop and lisinopril Subjective: epistaxis overnight; patient and very upset, arguing with RN Objective: Vital Signs Temp Pulse Resp BP Pulse Ox 36.4 C 85 25 H 161/121 H 93 10/14/17 08:00 10/14/17 08:00 10/14/17 04:00 10/14/17 08:00 10/14/17 08:00 Laboratory Results 10/14/17 05:45 10/13/17 03:15 10/13/17 10/14/17 10/15/17 05:59 05:59 05:59 Intake Total 1450 1100 Output Total 2100 700 Balance -650 400 PT 18.6 SEC (12.0-15.0) H 10/14/17 05:45 INR 1.54 (0.83-1.16) H 10/14/17 05:[address] Lang - Time Spent With Patient Time Spent with Patient: greater than 35 minutes Time Spent with Patient: Greater than 35 minutes spent on this patients care, greater than 50% of time spent counseling, educating, and coordinating care regarding the above mentioned plan. - Physical Exam Constitutional: uncomfortable, other (bleeding from nose, blood on gown) ICD10 Worksheet Patient Problems: Problems Problem Status Onset Primary osteoarthritis of right knee Acute Ventricular tachycardia Acute Congestive heart failure Acute
[2017-10-14] MEDS: ATORVASTATIN CALCIUM 20 MG TAB PO SCH (12:40)
[2017-10-14] MEDS ORDERED: HALOPERIDOL LACT 5 MG/ML INJ ONE ×2 (14:37→15:37)
--- NOTE | 2017-10-14 15:40 | PDCONSULT ---
Event Producer Note: HPI: 82 year old male with new diagnosis of atrial fibrillation. Patient awaiting further cardiac intervention. History of epistaxis in the past. Patient developed bleeding in the middle of the night last night. His most recent INR was 1.54. They are holding his anticoagulation. ENT consulted for evaluation. He has had some shortness of breath. Patient would not allow anyone to pack his nose. He has been using gauze/nasal clip with some success. O: Nasal clip in place, no bleeding Large clot, bilaterally -- removed -- he has a small anterior septal perforation with bleeding from posterior aspect of perforation I had a long, detailed discussion with the patient and his regarding options for epistaxis in the setting of anticoagulation. I discussed risk of cautery when patients are on anticoagulation. He wanted to proceed with cautery. He was adamant about avoiding packing placement. I cauterized posterior aspect of septal perforation with silver nitrate. I placed small amount of surgicel on right and through perforation. Tolerated well. No further bleeding. Oral cavity shows significantly dry mucosa with dried blood. A/P: 82 year old male with history of epistaxis now on anticoagulation. I had a long discussion with the patient and his regarding options. I strongly recommended packing but he was adamantly against it. I placed small amount of surgicel. I discussed that, if he were to have any further bleeding, than the hospital team would place a rapid rhino. He was OK with this. I discussed with Dr. Bernard. Hold anticoagulation per medicine/cardiac teams. From ENT perspective holding for 3-5 days would be best. He will follow-up in our office next week for further management, if necessary. I discussed with patient's and bedside nurse. If further bleeding occurs, recommend soaking cotton with afrin and placing in each nares following by nasal clips. OK to keep cotton in place for up to 24 hours. Robert Lopez PA-C Thank you so much for allowing us to participate in the care of this patient. If you have further questions please do not hesitate to contact our office.
[2017-10-14] MEDS ORDERED: DEXMEDETOMIDINE HCL 400 MCG in NS 100 ML IV SCH (16:30)
[2017-10-14] MEDS: DEXMEDETOMIDINE HCL 400 MCG in NS 100 ML IV SCH ×2 (17:00→21:42)
[2017-10-14] MEDS ORDERED: HALOPERIDOL LACT 5 MG/ML INJ IVP ONE (19:30)
[2017-10-14] MEDS ORDERED: METOPROLOL TARTRATE 50 MG TAB PO SCH (21:00)
[2017-10-15] MEDS: DEXMEDETOMIDINE HCL 400 MCG in NS 100 ML IV SCH ×2 (03:05→05:13)
[2017-10-15 05:39] LABS: INR 1.72 (0.83-1.16); PROTIME(PATIENT) 20.3 SEC (12.0-15.0)
[2017-10-15] MEDS: METOPROLOL TARTRATE 50 MG TAB PO SCH ×2 (09:05→20:01)
[2017-10-15] MEDS: LISINOPRIL 5 MG TAB PO SCH (09:05)
[2017-10-15] MEDS: ATORVASTATIN CALCIUM 20 MG TAB PO SCH (09:05)
--- NOTE | 2017-10-15 13:52 | PDCARPN ---
Cardiology Progress Note Assessment/Plan: Assessment/plan: 82-year-old male with new diagnosis of atrial fibrillation. Admitted with dyspnea and found to have a cardiomyopathy with an ejection fraction of 35-40%. Had sustained VT in the emergency department. He did undergo angiogram on October 13 which showed moderate LAD disease and significant disease in the ostia of both diagonal vessels. This would be complex PCI. Therefore, the decision was made to perform myocardial perfusion imaging to assess whether he has infarct or ischemia in the anterior wall and whether he would be candidate for complex high-risk PCI versus CABG. Other history includes hypertension, mitral regurgitation ( at least moderate) and epistaxis. 1. Coronary disease: As detailed above. He is not having an acute coronary syndrome. Nuclear images from his Lexiscan stress test do reveal inferolateral ischemia. Unfortunately this does not correspond to an anatomical obstruction in the coronary system. He has basal inferior wall akinesis and mid distal anterior wall and apical hypokinesis, which is consistent with an ischemic cardiomyopathy. This does not correspond to an obstructive lesion in his coronary circulation. Continue beta-jazmin, ROSALIE-inhibitor. Statin added yesterday. Will hold off on aspirin given his epistaxis at the moment. He has been covered with Lovenox up until this morning. 2. Cardiomyopathy: He appears euvolemic. Will switch to Toprol once we understand what his dose of metoprolol is going to be. May need to up titrate lisinopril as well. No need for spironolactone at this time. 3. Ventricular tachycardia: None over the past 48 hr. He did have sustained VT in the ER. Up titrate beta-jazmin. Ischemic evaluation is positive but p[ erpl;exing as the circ obtuse marginal system appears widely patent without flow limiting obstruction. 4. Atrial fibrillation: Up titrate beta blockers as he is suboptimally rate controlled. He will require chronic anticoagulation for CHADS2 Vasc score of 4. However this is complicated due to his history of epistaxis an ongoing epistaxis. Currently anticoagulation is on hold. He could benefit from a MARANDA guided cardioversion to see if sinus rhythm may improve his myopathy. 5. Hypertension: A titrate beta-blockers. Will probably need more lisinopril as well. 6. Epistaxis: Discussed with Hospital Medicine. May need nasal packing and/or ENT consult. Anticoagulation on hold temporarily. Greater than 45 min was spent in chart review, direct patient care, discussion with other physicians. I personally reviewed the nuclear stress and raw data of that study with Dr. Naranjo. I think the patient should be a candidate for early discharge. He could be considered for a Lifevest, but I do not think he would be compliant with that treatment. He also has some short term memory loss already and suffered from delirium yesterday that may have been sleep deprivation. Plan: As above. 10/15/17 13:40 Reviewed/Discussed With: family, hospitalist, multidisciplinary team Time Spent With Patient: 45 minutes total time coordinating care reviewing data with Drs. gaytan and Marcella as well as coordinating discharge plans with Dr. Bernard. Objective: Vital Signs (8 Hrs) Temp Pulse Resp BP Pulse Ox 10/15/17 12:00 68 16 141/87 H 96 10/15/17 10:00 36.2 C 73 16 117/81 H 95 10/15/17 09:05 70 133/99 H 10/15/17 08:00 77 20 133/99 H 93 10/15/17 06:00 71 16 165/101 H 97 Intake/Output (24 Hrs) 10/14/17 10/15/17 10/16/17 05:59 05:59 05:59 Intake Total 1100 906 917 Output Total 700 200 Balance 400 906 717 Intake: Oral (ml) 1100 400 720 IV Infused (ml) 506 197 Dexmedetomidine HCl 400 238 32 mcg In Ns 100 ml @ Per Protocol IV CONT ANGELA Rx#: [id number] Ns 1,000 ml @ 75 mls/hr 268 165 IV CONT ANGELA Rx#: [id number] Output: Urine (ml) 700 200 Toilet 200 Urinal 700 Other: Number of Voids Toilet 4 1 Urinal 3 Number of Stools Toilet 1 Result Diagrams: 10/14/17 05:45 10/15/17 05:10 Telemetry: A fib with controlled ventricular response. No ventricular tachycardia. Echocardiogram: EF 35-40%, basal inferior hypokinesis with moderate MR. - Physical Exam Constitutional: WDWN, no apparent distress Eyes: PERRL, EOMI, other (nasal bleed yesterday) Ears, Nose, Mouth, Throat: moist mucous membranes Cardiovascular: systolic murmur, irregularly irregular Respiratory: clear to auscultate bilat, no crackles, no wheezes, No reduced air movement Gastrointestinal: normoactive bowel sounds, no tenderness, no masses Skin: no rashes, no abrasions, no edema Neurologic: AAOx3 Psychiatric: cooperative, interactive, following commands, not anxious - . Pending Discharge Within 24 Hours: Yes ICD10 Worksheet Patient Problems: Problems Problem Status Onset Congestive heart failure Acute Ventricular tachycardia Acute Primary osteoarthritis of right knee Acute
--- NOTE | 2017-10-15 14:30 | HOSPPROG ---
Hospitalist Progress Note Assessment/Plan: # epistaxis d/t septal perforation, cauterized by ENT - will try to hold AC for now # agitated delirium - much better today, required haldol IV and precedex overnight - may be some component of etOH withdrawal vs having received restoril vs mild dementia vs hospital delirium - he no longer needs a medical detainer and i am vacating that # CAD - s/p cath complicated anatomy with diagonal disease and LAD disease without intervention - nuclear stress with inf/lateral ischemia - does not correlate with coronary disease - given his agitated delirium, he would not be a good candidate for CABG (he would also decline this) - cards to present him on Monday conference to determine best course of action (medical management vs high risk PCI) - dr michael ok with discharge and outpatient f/u from cardiac perspective # VT - about 50s in the ED; likely d/t ischemia - metop 50 bid # compensated sCHF - EF 35% - will need appropriate cardiac meds # a-fib - relatively new; rate better controlled s/p amiodarone - cont metop PO, hold warfarin # htn - metop and lisinopril # dispo - still too somnolent for dc today; stopping precedex; should f/u with dr imchael or derek elizalde in 1-2 weeks Subjective: sleepy, but much more oriented and appropriate today Objective: Vital Signs Temp Pulse Resp BP Pulse Ox 36.2 C 71 18 103/64 96 10/15/17 10:00 10/15/17 14:00 10/15/17 14:00 10/15/17 14:00 10/15/17 14:00 Laboratory Results 10/14/17 05:45 10/15/17 05:10 10/14/17 10/15/17 10/16/17 05:59 05:59 05:59 Intake Total 1100 906 917 Output Total 700 200 Balance 400 906 717 PT 20.3 SEC (12.0-15.0) H 10/15/17 05:10 INR 1.72 (0.83-1.16) H 10/15/17 05:[address] Michael - Time Spent With Patient Time Spent with Patient: greater than 35 minutes Time Spent with Patient: Greater than 35 minutes spent on this patients care, greater than 50% of time spent counseling, educating, and coordinating care regarding the above mentioned plan. - Physical Exam Constitutional: no apparent distress, appears nourished Cardiovascular: no murmur, rub, or gallop, irregularly irregular Respiratory: no respiratory distress, no rales or rhonchi, clear to auscultation Gastrointestinal: soft, non-tender abdomen, no palpable masses, No guarding, No rebound, No distension ICD10 Worksheet Patient Problems: Problems Problem Status Onset Primary osteoarthritis of right knee Acute Ventricular tachycardia Acute Congestive heart failure Acute
[2017-10-16 05:48] LABS: PLATELET COUNT 194 10^3/uL (150-400)
--- NOTE | 2017-10-16 09:44 | PDCARPN ---
Cardiology Progress Note Chief Complaint: fatigue/nose bleed/CAD/VT Assessment/Plan: Assessment: VT AF epistaxis Reduced EF Plan: 10/16/17 09:39 I have spoken in length with patient//RN. Multiple ongoing issues: 1-CAD- Patient has CAD not corresponding with stress test findings. Has not had any recurrence of VT or CP in last 60 hours. Patient also refusing open heart surgery. I feel that PCI would be limited by need for plavix/ASA and given recent nose bleed on coumadin, this would be very problematic. Suggest continued aggressive medical therapy. 2-VT- Place lifevest today. Patient is very hesitant for any ICD given potential shocks as well as the fact that VT is most likely ischemic medicated ( and not yet repaired). 3- AF- Continue coumadin however will discuss with patient about Watchman procedure as outpatient given his recent bleed OK from CV perspective to d/c after lifevest placed Subjective: fatigued Reviewed/Discussed With: multidisciplinary team Time Spent With Patient: 25 min Objective: Vital Signs (8 Hrs) Temp Pulse Resp BP Pulse Ox 10/16/17 08:00 36.4 C 88 18 127/68 H 93 10/16/17 03:35 36.8 C 103 H 18 158/118 H 94 Intake/Output (24 Hrs) 10/15/17 10/16/17 10/17/17 05:59 05:59 05:59 Intake Total 906 2317 Output Total 1000 Balance 906 1317 Intake: Oral (ml) 400 2120 IV Infused (ml) 506 197 Dexmedetomidine HCl 400 238 32 mcg In Ns 100 ml @ Per Protocol IV CONT ANGELA Rx#: [id number] Ns 1,000 ml @ 75 mls/hr 268 165 IV CONT ANGELA Rx#: [id number] Output: Urine (ml) 1000 Toilet 1000 Other: Number of Voids Toilet 4 3 Number of Stools Toilet 1 Result Diagrams: 10/16/17 05:22 10/16/17 05:22 - Physical Exam Constitutional: healthy appearing Eyes: PERRL Ears, Nose, Mouth, Throat: moist mucous membranes Cardiovascular: irregularly irregular Peripheral Pulses: 1+: femoral (R), femoral (L) Respiratory: clear to auscultate bilat Gastrointestinal: normoactive bowel sounds Genitourinary: no suprapubic tenderness Skin: no rashes Musculoskeletal: no muscular tenderness Neurologic: AAOx3 Psychiatric: cooperative ICD10 Worksheet Patient Problems: Problems Problem Status Onset Congestive heart failure Acute Ventricular tachycardia Acute Primary osteoarthritis of right knee Acute
--- NOTE | 2017-10-16 09:47 | ASDISCHSUM ---
Discharge Information Plan Status:Home with No Needs Medically Cleared to Leave:10/16/2017 Discharge Date:10/16/2017 CM D/C Disposition:Home, Routine, Self-Care ADT D/C Disposition: Projected Discharge Date:10/16/2017 10:00 AM Transportation at D/C:Family Discharge Delay Reason: Follow-Up Date:10/16/2017 10:00 AM Discharge Slot: Final Diagnosis:Dyspnea, Cardiomyopathy, EF=35-40%, HTN, MR Placement Information Patient Contact Information Contact Name:FLORI Relationship: Address:[address] [place] [address] [place] Alternate Phone: State/Zip Code:[place] [address] Email: Financial Information Financial Class:Medicare Primary Plan Desc:MEDICARE INPATIENT Primary Plan Number:[id number] Secondary Plan Desc:ZELALEM/ZEYAD SUPPLEMENT Secondary Plan Number:[id number] Assessment Information [facility] Initial CM Assessment Living Arrangements What is your living Answers: With Spouse arrangement? Who do you live with? Type Of Residence What kind of residence do Answers: House you live in? Discharge Plan Comments Coordination Status Comments Notes: Patient is an 82yo male who recently was diagnosed with AFIB by [facility]. He was admitted for coronary artery disease, AFIB, hypertension, systolic congestive heart failure, and deep venous thrombosis prophylaxis. Cardiac cath and intervention cardiac procedure have been ordered. D/C plan TBD. CM will follow. Date Signed: 10/13/2017 09:50 AM Electronically Signed By:Kaylyn Villagomez LCSW Case Management Discharge Plan Note Case Management Discharge Discharge Order Complete? Answers: Yes Patient to Obtain Answers: via Family Medications Transportation Arranged Answers: Family/Friends Transport will Pick (Date 10/16/2017 10:00 AM & Time) Family Notified Answers: Yes Notes: present Discharge Comments Notes: Patient has been discharged and will return home with his . Patient to wear a Life Vest and f/u with cardiology. No other discharge needs. Date Signed: 10/16/2017 09:46 AM Electronically Signed By:Lois Grider LCSW Intervention Information
--- NOTE | 2017-10-16 09:53 | ASMTLACE ---
LACE Length of stay for Answers: 4-6 days current admission # of Emergency department Answers: 1-2 visits in the last 6 months Score: 5 Date Signed: 10/16/2017 09:53 AM Electronically Signed By:Lois Grider LCSW
[2017-10-16] MEDS: ATORVASTATIN CALCIUM 20 MG TAB PO SCH (10:16)
[2017-10-16] MEDS: METOPROLOL TARTRATE 50 MG TAB PO SCH (10:16)
[2017-10-16] MEDS: LISINOPRIL 5 MG TAB PO SCH (10:17)
[2017-10-16 16:37] VITALS: BP 152/90
--- NOTE | 2017-10-16 22:28 | GDS ---
[f rep st] DISCHARGE SUMMARY DISCHARGE DIAGNOSES: 1. Epistaxis secondary to septal perforation, status post cauterization by Otolaryngology. 2. Agitated delirium. 3. Coronary artery disease. 4. Ventricular tachycardia, thought secondary to cardiac ischemia. 5. Compensated systolic heart failure. 6. Atrial fibrillation. 7. Hypertension. HISTORY OF PRESENT ILLNESS: An 82-year-old male who presented on 10/12/2017, with nonspecific compla ints. For details of the patient's initial presentation, please see the history and physical dated 0 10/12/2017. CONSULTATIVE SERVICES: Cardiology. PROCEDURES: On 10/14/2017, patient underwent Lexiscan stress testing that showed no inducible ischem ia. HOSPITAL COURSE BY ISSUE: 1. Epistaxis. Patient underwent cauterization by ENT and had anticoagulation held. Patient was car efully restarted on anticoagulation prior to disposition and will resume his normal Coumadin at dispo sition. He has had hemostasis in the 48 hours prior to disposition. 2. Ventricular tachycardia, suspected related to cardiac ischemia with known coronary artery disease . Patient was seen by Cardiology with recommendations for a LifeVest at disposition. As the patient has not had intervention to his coronary artery disease, felt this is the safest disposition plan. Patient will follow closely with outpatient cardiology. 3. Coronary artery disease. Patient is refusing open-heart surgery at this time. The utility of PC I is thought to be limited by the patient's inability to safely use Plavix and aspirin secondary to e pistaxis. Patient will be followed closely in the outpatient setting on appropriate cardiac medicati ons where they can actively readdress potential PCI in the future. Patient was sent on low-dose ROSALIE inhibitor as well as beta jazmin. MEDICATIONS AT THE TIME OF DISPOSITION: Please reference med rec printed on 10/16/2017. FOLLOWUP APPOINTMENTS: Cardiology in the next days for first post-disposition followup. PENDING STUDIES AT THE TIME OF THIS DICTATION: None. /[id number]/MODL
== END 2017-10-16 18:28 | disposition home or self-care (01) | DRG 287 ==
LOC: F2N 16:35
PROVIDERS: ADMIT Student in an Organized Health Care Education/Training Program; ATTEND Student in an Organized Health Care Education/Training Program
PROC: 095KXZZ Destruction of Nasal Mucosa and Soft Tissue, External Approach (ICD-10-PCS; principal; 2017-10-12)
PROC: B2111ZZ Fluoroscopy of Multiple Coronary Arteries using Low Osmolar Contrast (ICD-10-PCS; principal; 2017-10-12)
PROC: 4A023N7 Measurement of Cardiac Sampling and Pressure, Left Heart, Percutaneous Approach (ICD-10-PCS; principal; 2017-10-12)
PROC: B2151ZZ Fluoroscopy of Left Heart using Low Osmolar Contrast (ICD-10-PCS; principal; 2017-10-12)
DX: I25.10 Atherosclerotic heart disease of native coronary artery without angina pectoris (principal); I11.0 Hypertensive heart disease with heart failure; I50.20 Unspecified systolic (congestive) heart failure; R41.0 Disorientation, unspecified; I47.1 Supraventricular tachycardia; I48.91 Unspecified atrial fibrillation; R04.0 Epistaxis; J34.89 Other specified disorders of nose and nasal sinuses
CPT/HCPCS: 96365; 96366; A9500; C1760; C1769; J0282; J1630; J1644; J1650; J1940; J2250; J2785; J3010; Q9967

== ENCOUNTER → 2017-10-18 | Outpatient (CLI) | payer OTHER, MEDICARE | LOC: BHFA 11:45 | PROVIDERS: ATTEND Thoracic Surgery (Cardiothoracic Vascular Surgery) | DX: Z01.810 Encounter for preprocedural cardiovascular examination (principal) ==

== ENCOUNTER 2017-10-19 09:10 | Inpatient (IN) | payer OTHER, MEDICARE ==
[~2017-10-19 09:10] MED LIST: AMINOCAPROIC ACID 5 GM/20 ML VIAL IV ONE; INSULIN REGULAR HUMAN 100 UNIT in NS 100 ML IV ONE; MANNITOL 25% 12.5 GM/50 ML VIAL IVP ONE; MINERAL OIL 10 ML VIAL ONE; NOREPINEPHRINE BITARTRATE 16 MG in NS 250 ML IV ONE; PAPAVERINE HCL 60 MG/2 ML SDV ONE; PHENYLEPHRINE HCL 50 MG in NS 250 ML IV ONE; SODIUM BICARBONATE 20 MEQ, LIDOCAINE 1% 10 ML in NORMOSOL-R 1,000 ML MISC ONE; VERAPAMIL 5 MG, NITROGLYCERIN 2.5 MG, HEPARIN 500 UNIT, SODIUM BICARBONATE 0.2 MEQ in L... MISC ONE; VERAPAMIL 5 MG/2 ML VIAL ONE
[2017-10-19] MEDS ORDERED: MIDAZOLAM 2 MG/2 ML VIAL IVP ONE (10:08)
--- NOTE | 2017-10-19 10:09 | PDANEPAE ---
ANE History of Present Illness here for cabg ANE Past Medical History - Cardiovascular History Hx Hypertension: Yes Hx Arrhythmias: Yes Hx Chest Pain: No Hx Coronary Artery / Peripheral Vascular Disease: Yes Hx CHF / Valvular Disease: Yes Hx Palpitations: No Cardiovascular History Comment: OCCASSIONAL SWELLING IN LEGS USES HCTZ PRN - Pulmonary History Hx COPD: No Hx Asthma/Reactive Airway Disease: No Hx Recent Upper Respiratory Infection: No Hx Oxygen in Use at Home: No Hx Sleep Apnea: No Sleep Apnea Screening Result - Last Documented: Positive - Neurologic History Hx Cerebrovascular Accident: No Hx Seizures: No Hx Dementia: No - Endocrine History Hx Diabetes: No - Renal History Hx Renal Disorders: No Renal History Comment: ELEVATED PSA - Liver History Hx Hepatic Disorders: No - Neurological & Psychiatric Hx Hx Neurological and Psychiatric Disorders: No - Cancer History Hx Cancer: No - Congenital Disorder History Hx Congenital Disorders: No - GI History Hx Gastrointestinal Disorders: No - Other Health History Other Health History: Hx severe nose bleeds with interventions. bruises easily. pt had serious fall in may, hematoma to skull and coccyx - Chronic Pain History Chronic Pain: No (RIGHT KNEE PAIN) - Surgical History Prior Surgeries: RIGHT CLAVICLE FX AND REPAIR IN 1955. BILATERAL HERNIA REPAIRS. RIGHT LEG VARICOSE VEIN 1967. bilat cataract sx. R tka. ANE Review of Systems Review of systems is: negative Review of Systems: - Exercise capacity Exercise capacity: <4 METS METS (RN): 2 METS ANE Patient History - Allergies Allergies/Adverse Reactions: hydrochlorothiazide Allergy (Verified 10/18/17 17:34) Other-Enter Comments cardiac sonographer patches Allergy (Uncoded 10/18/17 17:34) Itching - Home Medications Home medications: home medication list seen and reviewed Home Medications: Atorvastatin Calcium [Lipitor 20 mg (*)] 10/18/17 [Last Taken 10/13/17 06:00] Lisinopril [Zestril 5 mg (*)] 10/18/17 [Last Taken 10/18/17 06:00] Metoprolol Tartrate [Lopressor 25 mg (*)] 10/18/17 [Last Taken 10/18/17 06:00] Oxymetazoline HCl [Afrin Nasal [place]] 10/18/17 [Last Taken 10/18/17 18:00] - NPO status NPO Status: no food or drink >8 hours - Smoking Hx Smoking Status: Never smoked - Family Anes Hx Family Hx Anesthesia Complications: NONE ANE Labs/Vital Signs - Vital Signs Vital Signs: reviewed preoperatively; see RN documention for details Height: 175.26 cm Weight: 74.389 kg ANE Physical Exam - Airway Neck exam: FROM Mallampati Score: Class 1 - Pulmonary Pulmonary: no respiratory distress - Cardiovascular Cardiovascular: irregularly irregular - ASA Status ASA Status: IV ANE Anesthesia Plan Anesthesia Plan: general endotracheal anesthesia Lines/Monitors: arterial line, central line, MARANDA
[2017-10-19] MEDS ORDERED: CITRATE DEXTROSE SOLN 500 ML BAG MISC ONE (10:25)
[2017-10-19] MEDS ORDERED: ceFAZolin 2 GM/SWFI 2 GM/20 ML SYR IVP ONE (10:25)
[2017-10-19] MEDS ORDERED: niCARdipine/NACL 200 ML IV SCH (10:25)
[2017-10-19] MEDS ORDERED: MUPIROCIN 2% 22 GM OINT NS ONE (10:25)
[2017-10-19] MEDS ORDERED: LIDOCAINE 1% 2 ML INJ ID PRN (10:26)
[2017-10-19] MEDS ORDERED: LR 1,000 ML IV ONE (10:26)
--- NOTE | 2017-10-19 10:44 | PDHPUP ---
History & Physical Update H&P update statement: This history and physical update is based on an assessment of the patient which was completed after admission or registration (within 24 hours), but prior to the surgery/procedure. H&P update: H&P reviewed & patient examined, no change in patient's condition since H&P completed
[2017-10-19] MEDS ORDERED: PROTAMINE SULFATE 50 MG/5 ML VIAL IVP ONE (11:05)
[2017-10-19] MEDS ORDERED: MILRINONE/DEXTROSE/100 ML BAG IV ONE (11:05)
[2017-10-19] MEDS ORDERED: CALCIUM CHLORIDE 1 GM/10 ML INJ ONE ×2 (11:05→11:08)
[2017-10-19] MEDS ORDERED: NA BICARBONATE 50 MEQ/50 ML VIAL ONE (11:06)
[2017-10-19] MEDS ORDERED: HEPARIN 10,000 UNIT/10 ML MDV (1,000 UNIT/ML) ONE ×2 (11:06→11:08)
[2017-10-19] MEDS ORDERED: DOPamine/DEXTROSE/250 ML BAG IV ONE (11:07)
[2017-10-19] MEDS ORDERED: ceFAZolin 1 GM VIAL ONE (11:07)
[2017-10-19] MEDS ORDERED: AMIODARONE HCL 150 MG/3 ML VIAL ONE ×2 (11:07→11:09)
[2017-10-19] MEDS ORDERED: ADENOSINE 6 MG/2 ML VIAL ONE (11:07)
[2017-10-19] MEDS ORDERED: niCARdipine/NACL/200 ML BAG IV ONE (11:07)
[2017-10-19] MEDS ORDERED: LIDOCAINE 2% 100 MG/5 ML SYR ONE (11:08)
[2017-10-19] MEDS ORDERED: ALBUMIN 5% 250 ML BOTTLE IV ONE (11:08)
[2017-10-19] MEDS ORDERED: MAGNESIUM SULFATE 1 GM/2 ML VIAL ONE (11:09)
[2017-10-19] MEDS ORDERED: methylPREDNISolone SOD SUCC 1 GM/8 ML VIAL ONE (11:09)
[2017-10-19] MEDS ORDERED: CITRATE DEXTROSE SOLN 500 ML BAG ONE (11:09)
[2017-10-19] MEDS ORDERED: PROPOFOL/EMULSION 500 MG/50 ML BOTTLE IV ONE (11:14)
[2017-10-19 11:31] LABS: INR 1.12 (0.83-1.16); PROTIME(PATIENT) 14.6 SEC (12.0-15.0)
[2017-10-19] MEDS ORDERED: fentaNYL 250 MCG/5 ML INJ ONE ×2 (11:36→15:20)
[2017-10-19] MEDS ORDERED: NITROGLYCERIN 50 MG/10 ML SDV IV ONE (15:58)
[2017-10-19] MEDS ORDERED: ESMOLOL HCL 100 MG/10 ML VIAL IV ONE (15:58)
[2017-10-19] MEDS ORDERED: PHENYLEPHRINE HCL 100 MCG/ML SYR ONE ×2 (15:58)
[2017-10-19] MEDS ORDERED: LACTULOSE 20 GM/30 ML UDCUP PO PRN (16:21)
[2017-10-19] MEDS ORDERED: ONDANSETRON 4 MG/2 ML VIAL IVP PRN (16:21)
[2017-10-19] MEDS ORDERED: PANTOPRAZOLE SODIUM 40 MG VIAL IVP ONE (16:21)
[2017-10-19] MEDS ORDERED: MAGNESIUM HYDROXIDE 30 ML UDCUP PO PRN (16:21)
[2017-10-19] MEDS ORDERED: MAGNESIUM SULF 2 GM/WATER 50 ML IV ONE (16:21)
[2017-10-19] MEDS ORDERED: SODIUM CL NASAL 45 ML BTL EACHNARE PRN (16:21)
[2017-10-19] MEDS ORDERED: MEPERIDINE 25 MG/0.5 ML AMP IVP PRN (16:21)
[2017-10-19] MEDS ORDERED: METOCLOPRAMIDE 10 MG/2 ML VIAL IVP PRN (16:21)
[2017-10-19] MEDS ORDERED: D50W 25 GM/50 ML SYR IVP PRN (16:21)
[2017-10-19] MEDS ORDERED: ACETAMINOPHEN 650 MG SUPP PR PRN (16:21)
[2017-10-19] MEDS ORDERED: POTASSIUM Cl (KCl) 50 ML IV PRN (16:21)
[2017-10-19] MEDS ORDERED: ACETAMINOPHEN 325 MG TAB PO PRN (16:21)
[2017-10-19] MEDS ORDERED: BISACODYL 10 MG SUPP PR PRN (16:21)
[2017-10-19] MEDS ORDERED: ONDANSETRON DISINTEGRATING 4 MG TAB PO PRN (16:21)
[2017-10-19] MEDS ORDERED: CEPACOL LOZENGE PO PRN (16:21)
[2017-10-19] MEDS ORDERED: POLYETHYLENE GLYCOL 3350 17 GM PKT PO PRN (16:21)
[2017-10-19] MEDS ORDERED: INSULIN REGULAR HUMAN 100 UNIT in NS 100 ML IV SCH (16:30)
[2017-10-19] MEDS ORDERED: NS 1,000 ML IV SCH (16:30)
--- NOTE | 2017-10-19 16:56 | POSTANESTH ---
Post Anesthetic Evaluation Cardiovascular Status: Normal, Stable Respiratory Status: Requires Airway Assist (intubated) Level of Consciousness/Mental Status: Moderately Sleepy Pain Control: Adequate, Prn Tx Ordered Nausea/Vomiting Control: Adequate, Prn Tx Ordered Complications Possibly Related to Anesthesia: None Noted
[2017-10-19] MEDS: fentaNYL 100 MCG/2 ML INJ IVP PRN ×3 (17:12→19:14)
--- NOTE | 2017-10-19 18:10 | GOP ---
[f rep st] OPERATIVE REPORT DATE OF OPERATION: 10/19/2017 SURGEON: Mack De La Garza DO FIRST COAT OPERATOR: Luke Espinal PA-C ANESTHESIOLOGIST: Dr. Berg PREOPERATIVE DIAGNOSIS: 1. Unstable angina pectoris with severe 1-vessel coronary artery disease, ischemic cardiomyopathy and ventricular tachycardia. 2. Cardiomyopathy, ischemic and other, undiagnosed. 3. Long-standing persistent atrial fibrillation. POSTOPERATIVE DIAGNOSIS: 1. Unstable angina pectoris with severe 1-vessel coronary artery disease, ischemic cardiomyopathy and ventricular tachycardia. 2. Cardiomyopathy, ischemic and other, undiagnosed. 3. Long-standing persistent atrial fibrillation. 4. Large thrombus in the left atrial appendage. PROCEDURE PERFORMED: 1. Stanley Maze 4 with sensing and testing. 2. Coronary artery bypass grafting x3 with left internal mammary artery to the distal left anterior descending, saphenous vein graft to the 1st diagonal, sequential 2nd diagonal. 3. Removal of left atrial thrombus. 4. AtriClip to the left atrial appendage. FINDINGS: DESCRIPTION OF PROCEDURE: Patient was consented for surgery after presenting with ventricular tachycardia of ischemic origin, by consensus. He was also noted to have a cardiomyopathy, likely due to coronary artery disease, alcoholism, and hypertension. On intraoperative transesophageal echo, he was noted to have a marked mobile thrombus in the left atrial appendage which was protruding, and he presented with atrial fibrillation. He was consented for surgery, brought to the operating room, intubated and monitoring lines were placed. He was prepped and draped in sterile classical manner. Because of thrombus in the left atrial appendage, the approach to surgery was changed. A sternotomy was performed. Vein was harvested from lower leg by DANTE Valdez, who first assisted throughout the procedure. We then heparinized the patient after harvesting the mammary, which was a good quality vessel, cannulated with bicaval cannulae and ascending aortic cannula. We then performed sensing on the right pulmonary veins, which showed evidence of conduction. We did not do the left for fear of raising the heart and dislodging the thrombus. The patient was arrested with antegrade cardioplegia and topical hypothermia as well as systemic cooling. We then performed right pulmonary vein ablation with multiple lesion sets performed per protocol. We then opened the left atrium through the superior pulmonary vein, placed a retractor, performed the roof lesion with 2.5 minutes of cryo, and the floor lesion with radiofrequency ablation, with multiple ablations performed. We then performed the isthmus lesion with cryo, and then overlapped that to the coronary sinus lesion with cryo for 3 minutes. We then removed a large mobile thrombus prior to doing the posterior wall as previously described, which was protruding from the appendage. We then transected the appendage and performed a radiofrequency ablation line between the left superior pulmonary vein and the atrial appendage. This was then occluded with an AtriClip which was oversewn. I then returned to the left atrium, irrigated it. There was no thrombus noted or residual. We then closed the left atrium in the standard fashion. We then began grafting. We sequentially grafted 2 diagonal branches which were 1.6 to 1.8 mm with a good quality vein, which was brought off the ascending aorta. We then grafted the mammary at the distal portion because of diffuse disease with a good quality mammary. This was tacked to the epicardium. Cross- clamp was removed with suction on the ascending aortic vent. Spontaneous sinus rhythm was noted to resume. We then secured caval tapes and opened the right atrium with a vertical atriotomy and then performed radiofrequency free wall, superior and inferior vena caval lesion sets. We then used cryo to continue from the superior incision to the tricuspid valve isthmus for several minutes. Right atrium was closed in a 2-layer fashion. Cross-clamp was removed with suction on the ascending aortic vent and LV sump, in Trendelenburg. He was intermittently aspirated through the apex. The heparin was reversed with protamine. The cannula was removed and oversewn. Four pacing wires, 2 pleural and 1 mediastinal drains were placed. The thymic fat and pericardium were closed. Chest was closed in standard fashion. The patient was returned to ICU in stable condition. /[id number]/MODL MTDD
[2017-10-19] MEDS ORDERED: DEXMEDETOMIDINE HCL 400 MCG in NS 100 ML IV SCH (18:30)
[2017-10-19] MEDS: ALBUMIN 5% 250 ML IV PRN ×2 (19:43→23:04)
[2017-10-19] MEDS: MUPIROCIN 2% 22 GM OINT NS SCH (20:36)
[2017-10-19] MEDS: BEER 1 EACH EA PO SCH (21:38)
[2017-10-19] MEDS: SENNOSIDES/DOCUSATE SODIUM TAB PO SCH (21:38)
[2017-10-19] MEDS: ceFAZolin 2 GM/SWFI 2 GM/20 ML SYR IVP SCH (21:41)
[2017-10-19] MEDS ORDERED: ceFAZolin 2 GM/DEXTROSE 100 ML IV SCH (22:00)
[2017-10-19] MEDS: HYDROCODONE/APAP 5/325 TAB PO PRN (23:57)
[2017-10-20 04:04] LABS: INR 1.45 (0.83-1.16); PROTIME(PATIENT) 17.8 SEC (12.0-15.0)
[2017-10-20] MEDS: HYDROCODONE/APAP 5/325 TAB PO PRN ×3 (05:30→20:10)
[2017-10-20] MEDS: ceFAZolin 2 GM/SWFI 2 GM/20 ML SYR IVP SCH ×3 (05:37→21:19)
[2017-10-20] MEDS: HEPARIN 5,000 UNIT/0.5 ML SYR SC SCH ×3 (05:41→21:19)
--- NOTE | 2017-10-20 06:49 | SOAPPROG ---
SOAP Progress Note Assessment/Plan: Assessment: POD#1 CABG x 3 (FERNANDEZ-LAD, SV sequentially to D1 & D2), open vein harvest LLE, Stanley-Maze IV procedure Sx CAD - s/p CABG. Stable early postop course. No vasoactive support or backup pacing. Secondary prevention with baby ASA, BB as tolerated, and statin when eating well. 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 from CPB in stable rhythm without inotropic support. No sig volume overload. Adequate early diuresis with stable renal fx. Care with fluid management and BP control. Use of LifeVest TBD. Recently diagnosed AF - Anticoagulated with Coumadin for [id number] score of 5. LOUIE clot identified on intraop MARANDA and extracted (see pics front of chart) prior to LA exclusion/Maze. Postop rhythm SR/ST. Antithrombotic prophylaxis with Coumadin to resume once coagulopathy resolved. Prior INR parameters of 2-3 sufficient surgical prophylaxis. Acute expected blood loss anemia with mild coagulopathy - Slightly elevated INR with moderate CTOP. No evidence active bleeding. VTE prophylaxis with SQ hep until INR > 2. Hx alcohol dependence - Daily ETOH resumed prn. Hx severe epistaxis/cauterization - Care with anticoag. Plan: Routine POD#1 orders re. wires, drains, orals and mobility. Colloid for CVP < 10. Levo prn SBP < 100. Consider tx to PCU later this am. 10/20/17 06:47 Subjective: Doing ok. Adequate analgesia. No nausea or dizziness. Objective: Vital Signs Temp Pulse Resp BP Pulse Ox 36.8 C 108 H 24 H 97/68 L 93 10/20/17 06:00 10/20/17 06:00 10/20/17 06:00 10/20/17 06:00 10/20/17 06:00 Laboratory Results 10/20/17 03:32 10/20/17 03:32 10/19/17 10/20/17 10/21/17 05:59 05:59 05:59 Intake Total 1783.0 Output Total 2847 Balance -1064.0 PT 17.8 SEC (12.0-15.0) H 10/20/17 03:32 INR 1.45 (0.83-1.16) H 10/20/17 03:32 Extubated yest afternoon without incident. Rhythm sinus, occ PVCs, no VT. MAPs generally > 70. Vigorous UOP early postop, dwindling overnoc without significant rise in Cr. CTOP thinning out, quantity somewhat elev at 540 last shift. INR 1.4. CXR -> No overt PTX, mild pulm vasc congestion, no undrained effusions. Other labs as expected. Physical Exam - Physical Exam General Appearance: alert, no apparent distress Respiratory: lungs clear (grossly), other (blakes x 3 y-d to pleurovac, serosang drainage, no air leak) Cardiac/Chest: regular rate, rhythm, tachycardia, other (Sternotomy CDI. A&V wires intact) Abdomen: normal bowel sounds, non-tender, soft Skin: warm/dry Extremities: swelling (1+ dependent, vein donor leg), other (LLE venotomy CDI) ICD10 Worksheet Patient Problems: Problems Problem Status Onset S/P CABG x 3 Acute S/P ablation of atrial fibrillation Acute chronic disease mgmt/transitional care Acute Congestive heart failure Acute Primary osteoarthritis of right knee Acute Ventricular tachycardia Acute
[2017-10-20] MEDS ORDERED: ALBUMIN 5% 250 ML IV ONE (09:00)
[2017-10-20] MEDS: SENNOSIDES/DOCUSATE SODIUM TAB PO SCH ×2 (09:30→20:11)
[2017-10-20] MEDS: PANTOPRAZOLE SODIUM 40 MG TAB PO SCH (09:30)
[2017-10-20] MEDS: ASPIRIN 81 MG CHEWABLE TAB PO SCH (09:30)
[2017-10-20] MEDS: MUPIROCIN 2% 22 GM OINT NS SCH ×2 (09:31→20:09)
[2017-10-20] MEDS: BEER 1 EACH EA PO SCH (09:32)
--- NOTE | 2017-10-20 10:00 | ASMTCASEMG ---
Living Arrangements What is your living Answers: With Spouse arrangement? Who do you live with? Type Of Residence What kind of residence do Answers: House you live in? Discharge Plan Comments Coordination Status Comments Notes: Patient is an 82yo male who was admitted for CAD, AF and the need for surgical intervention. OT/PT ordered. Patient has been living independently with his in [place]. D/C plan TBD. CM will follow. Date Signed: 10/20/2017 10:00 AM Electronically Signed By:Kaylyn Villagomez LCSW
[2017-10-20] MEDS: traMADol 50 MG TAB PO PRN (10:35)
--- NOTE | 2017-10-20 10:39 | PDMN ---
Medical Necessity Medical necessity: IP surgery per [facility] cpt 51087, 66788, CABG x 3, ricci maze
[2017-10-20] MEDS ORDERED: BEER 1 EACH EA PO SCH (12:00)
[2017-10-20] MEDS ORDERED: fentaNYL 100 MCG/2 ML INJ ONE (14:51)
[2017-10-20] MEDS ORDERED: fentaNYL 100 MCG/2 ML INJ IVP ONE (15:00)
[2017-10-20] MEDS ORDERED: NS 500 ML IV ONE (16:00)
[2017-10-20] MEDS ORDERED: BEER 1 EACH EA PO PRN (17:30)
[2017-10-20] MEDS: SIMETHICONE 80 MG TAB CHEW PO SCH ×3 (17:38→20:29)
[2017-10-21] MEDS: HYDROCODONE/APAP 5/325 TAB PO PRN ×2 (03:13→09:47)
[2017-10-21 04:30] LABS: PLATELET COUNT 169 10^3/uL (150-400)
[2017-10-21 04:57] LABS: INR 1.54 (0.83-1.16); PROTIME(PATIENT) 18.6 SEC (12.0-15.0)
[2017-10-21] MEDS: ceFAZolin 2 GM/SWFI 2 GM/20 ML SYR IVP SCH (05:50)
[2017-10-21] MEDS: HEPARIN 5,000 UNIT/0.5 ML SYR SC SCH ×3 (06:04→23:00)
[2017-10-21] MEDS: traMADol 50 MG TAB PO PRN ×2 (06:12→20:18)
--- NOTE | 2017-10-21 07:42 | SOAPPROG ---
SOAP Progress Note Assessment/Plan: Assessment: POD#2 CABG x 3 (FERNANDEZ-LAD, SV sequentially to D1 & D2), open vein harvest LLE, Stanley-Maze IV procedure Sx CAD - s/p uncomplicated CABG. No sig ectopy or backup pacing. Secondary prevention with baby ASA, BB as tolerated, and statin when eating well. 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 from CPB in stable rhythm without inotropic support. No sig volume overload. Started on low dose dopa yest afternoon for dwindling UOP with marginal SBPs. Use of LifeVest TBD. Recently diagnosed AF - Anticoagulated with Coumadin for [id number] score of 5. LOUIE clot identified on intraop MARANDA and extracted (see pics front of chart) prior to LA exclusion/Maze. Postop rhythm SR/ST. Antithrombotic prophylaxis with Coumadin to resume once coagulopathy resolved. Prior INR parameters of 2-3 sufficient surgical prophylaxis. Postop TAMI - Prerenal. Progressive oliguria and relative hypotension yest refractory to fluid boluses. Started on low dose with good effect. Anticipate prompt resolution of elev Cr. Acute expected blood loss anemia with mild coagulopathy - Slightly elevated INR with moderate CTOP. No evidence active bleeding. VTE prophylaxis with SQ hep until INR > 2. Hx alcohol dependence - Daily ETOH resumed prn. Hx severe epistaxis/cauterization - Care with anticoag. Plan: Stop dopamine. Follow UOP. Keep remaining CTs one more day. Tx to SDU later today if SBPs stable. 10/21/17 07:41 Subjective: Much more comfortable than yest. Able to walk a little. Objective: Vital Signs Temp Pulse Resp BP Pulse Ox 36.7 C 105 H 20 144/100 H 92 10/21/17 04:00 10/21/17 06:00 10/21/17 06:00 10/21/17 06:00 10/21/17 06:00 Laboratory Results 10/21/17 04:15 10/21/17 04:15 10/20/17 10/21/17 10/22/17 05:59 05:59 05:59 Intake Total 1783.0 2493 Output Total 2847 1050 Balance -1064.0 1443 PT 18.6 SEC (12.0-15.0) H 10/21/17 04:15 INR 1.54 (0.83-1.16) H 10/21/17 04:15 Anxious in absence of . Rt pleural tube removed yest for pleuritic pains. Dopa weaned from 3 to 1.5 mcg overnoc for MAPs > 100. Cr up to 1.9, but UOP improved. Min suppl O2 req. CTOP too high to pull. CXR -> no PTX, improved insp effort, small residual rt pl effusion. Remains autoanticoagulated, likely hepatic congestion. Physical Exam - Physical Exam General Appearance: alert, no apparent distress Respiratory: lungs clear (grossly), other (blakes x 2 to bulb suction, thin serosang drainage) Cardiac/Chest: regular rate, rhythm, other (Sternotomy CDI. A&V wires intact.) Abdomen: non-tender, soft Skin: warm/dry Extremities: swelling (trace donor leg), other (LLE venotomy CDI) ICD10 Worksheet Patient Problems: Problems Problem Status Onset S/P CABG x 3 Acute S/P ablation of atrial fibrillation Acute chronic disease mgmt/transitional care Acute Congestive heart failure Acute Primary osteoarthritis of right knee Acute Ventricular tachycardia Acute
[2017-10-21] MEDS: SENNOSIDES/DOCUSATE SODIUM TAB PO SCH ×2 (09:48→20:18)
[2017-10-21] MEDS: SIMETHICONE 80 MG TAB CHEW PO SCH ×4 (09:48→21:21)
[2017-10-21] MEDS: PANTOPRAZOLE SODIUM 40 MG TAB PO SCH (09:48)
[2017-10-21] MEDS: ASPIRIN 81 MG CHEWABLE TAB PO SCH (09:48)
[2017-10-21] MEDS: MUPIROCIN 2% 22 GM OINT NS SCH (09:48)
[2017-10-21] MEDS ORDERED: RED WINE 120 ML BOTTLE PO PRN (13:21)
[2017-10-21] MEDS ORDERED: OXYMETAZOLINE 30 ML NASAL SPRAY EACHNARE PRN (14:00)
--- NOTE | 2017-10-21 15:14 | ASMTCMCOM ---
CM Note CM Note Notes: Spoke with pt and his Pushpa today regarding PT's SNF recommendation. Pt recovering slowly. They are open to a possible SNF d/c and if needed, would like [facility]. Referral sent via [employer]. Pt may improve over next couple days and go home with home care or be able to do outpt cardiac rehab. Pt had a R TKA in 05/03 and used [facility]. Pt likely will transfer to PCU over next day or two. CM will continue to follow. Date Signed: 10/21/2017 03:13 PM Electronically Signed By:JUAN Castillo
[2017-10-21] MEDS: MELATONIN 3 MG TAB PO SCH (20:18)
[2017-10-22] MEDS ORDERED: HALOPERIDOL LACT 5 MG/ML INJ ONE (03:53)
[2017-10-22] MEDS ORDERED: HALOPERIDOL LACT 5 MG/ML INJ IVP ONE ×2 (04:15→13:15)
[2017-10-22 05:49] LABS: INR 1.99 (0.83-1.16); PROTIME(PATIENT) 22.7 SEC (12.0-15.0)
[2017-10-22] MEDS: HEPARIN 5,000 UNIT/0.5 ML SYR SC SCH (06:01)
--- NOTE | 2017-10-22 07:35 | SOAPPROG ---
SOAP Progress Note Assessment/Plan: Assessment: POD#3 CABG x 3 (FERNANDEZ-LAD, SV sequentially to D1 & D2), open vein harvest LLE, Stanley-Maze IV procedure Sx CAD - s/p uncomplicated CABG. No sig ectopy or backup pacing. Secondary prevention with baby ASA, BB as tolerated, and statin when eating well. 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 from CPB in stable rhythm without inotropic support. No sig volume overload. Transient low dose dopa for TAMI. Use of LifeVest TBD. Recently diagnosed AF - Anticoagulated with Coumadin for [id number] score of 5. LOUIE clot identified on intraop MARANDA and extracted (see pics front of chart) prior to LA exclusion/Maze. Postop rhythm SR/ST. Antithrombotic prophylaxis with Coumadin to resume once coagulopathy resolved. Prior INR parameters of 2-3 sufficient surgical prophylaxis. Postop TAMI - Prerenal. Progressive oliguria and relative hypotension POD#1 refractory to fluid boluses. Started on low dose dopa with good effect. Acute expected blood loss anemia with mild coagulopathy - Elevated INR with moderate CTOP. No evidence active bleeding. Remains auto-anticoagulated. Hx mild senile dementia - Postop nocturnal delirium. Supportive measures. Limit narcs after CTs out. Haldol prn. Hx alcohol dependence - LFTs WNL. Daily ETOH resumed prn. Hx severe epistaxis/cauterization - Care with anticoag. Plan: Remove CTs and TCPWs. Stop hydrocodone. Reduce tramadol dosing. Start metoprolol 12.5 mg BID with conservative hold parameters. Tx to PCU. 10/22/17 07:28 Objective: Vital Signs Temp Pulse Resp BP Pulse Ox 37.1 C 106 H 16 137/83 H 93 10/22/17 04:00 10/22/17 06:00 10/22/17 06:00 10/22/17 06:00 10/22/17 06:00 Laboratory Results 10/21/17 04:15 10/22/17 05:20 10/21/17 10/22/17 10/23/17 05:59 05:59 05:59 Intake Total 2493 1890 Output Total 1050 1100 Balance 1443 790 PT 22.7 SEC (12.0-15.0) H 10/22/17 05:20 INR 1.99 (0.83-1.16) H 10/22/17 05:20 100 mg Tramadol for pain last pm. Disoriented, agitated and combative overnight , necessitating sitter, restraints and Haldol. Sleepy this am, engaging only when stimulated. Rhythm remains ST. SBPs > 120. Min suppl O2 req. Adequate UOP with no further rise in Cr. CTOP approaching removal criteria. INR yet to plateau. Physical Exam - Physical Exam General Appearance: no apparent distress Respiratory: lungs clear (grossly), other (blakes x 2 to bulb suction, thin mostly serous drainage. Mediastinal tube removed. Left pleural bulb full and tube left.) Cardiac/Chest: regular rate, rhythm, tachycardia, other (Sternotomy and LLE venotomy CDI. A&V wires removed.) Abdomen: non-tender, soft Skin: warm/dry Extremities: other (trace donor leg) ICD10 Worksheet Patient Problems: Problems Problem Status Onset S/P CABG x 3 Acute S/P ablation of atrial fibrillation Acute chronic disease mgmt/transitional care Acute Congestive heart failure Acute Primary osteoarthritis of right knee Acute Ventricular tachycardia Acute
[2017-10-22] MEDS: SIMETHICONE 80 MG TAB CHEW PO SCH ×5 (11:35→22:38)
[2017-10-22] MEDS: SENNOSIDES/DOCUSATE SODIUM TAB PO SCH ×3 (11:35→22:38)
[2017-10-22] MEDS: ASPIRIN 81 MG CHEWABLE TAB PO SCH ×2 (11:35→12:42)
[2017-10-22] MEDS: METOPROLOL TARTRATE 25 MG TAB PO SCH ×3 (11:36→22:53)
[2017-10-22] MEDS: PANTOPRAZOLE SODIUM 40 MG TAB PO SCH ×2 (11:36→12:43)
[2017-10-22] MEDS ORDERED: BEER 1 EACH EA PO PRN (12:00)
[2017-10-22] MEDS ORDERED: LORazepam 2 MG/ML INJ IVP PRN ×2 (14:15→21:00)
[2017-10-22] MEDS: MELATONIN 3 MG TAB PO SCH (22:38)
[2017-10-23] MEDS ORDERED: DOPamine/DEXTROSE/250 ML BAG IV ONE (00:23)
[2017-10-23 04:58] LABS: INR 1.97 (0.83-1.16); PROTIME(PATIENT) 22.5 SEC (12.0-15.0)
--- NOTE | 2017-10-23 06:15 | SOAPPROG ---
SOAP Progress Note Assessment/Plan: POD#4 CABG x 3 (FERNANDEZ-LAD, SV sequentially to D1 & D2), open vein harvest LLE, Stanley-Maze IV procedure Sx CAD - s/p uncomplicated CABG. Secondary prevention with baby ASA, BB as tolerated, and statin when eating well. 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 No sig volume overload. Use of LifeVest TBD. Recently diagnosed AF - Anticoagulated with Coumadin for [id number] score of 5. LOUIE clot identified on intraop MARANDA and extracted (see pics front of chart) prior to LA exclusion/Maze. Postop rhythm SR/ST/bradycardia. Antithrombotic prophylaxis with Coumadin to resume once coagulopathy resolved. Prior INR parameters of 2-3 sufficient surgical prophylaxis. Postop TAMI - Resolved. Acute expected blood loss anemia with coagulopathy - No evidence active bleeding. Remains auto-anticoagulated. Hx mild senile dementia - Postop nocturnal delirium. Supportive measures. Haldol prn. Hx alcohol dependence - LFTs WNL. Daily ETOH resumed prn. Hx severe epistaxis/cauterization - Care with anticoag. Bradycardia - intermittent in 30s with associated hypotension. Continue dopamine. Will contact cardiology for PPM implantation. Subjective: sleeping Objective: Vital Signs Temp Pulse Resp BP Pulse Ox 36.3 C 54 L 19 117/89 H 92 10/22/17 23:02 10/23/17 04:00 10/23/17 04:00 10/23/17 04:00 10/23/17 04:00 Laboratory Results 10/21/17 04:15 10/23/17 04:30 10/22/17 10/23/17 10/24/17 05:59 05:59 05:59 Intake Total 1890 240 Output Total 1100 300 Balance 790 -60 PT 22.5 SEC (12.0-15.0) H 10/23/17 04:30 INR 1.97 (0.83-1.16) H 10/23/17 04:30 Physical Exam - Physical Exam General Appearance: no apparent distress Neck: normal inspection Respiratory: No respiratory distress Cardiac/Chest: regular rate, rhythm, bradycardia Abdomen: non-tender, soft, No distended Skin: normal color, warm/dry Extremities: No pedal edema Neuro/Psych: other (sleeping) ICD10 Worksheet Patient Problems: Problems Problem Status Onset S/P CABG x 3 Acute S/P ablation of atrial fibrillation Acute chronic disease mgmt/transitional care Acute Congestive heart failure Acute Primary osteoarthritis of right knee Acute Ventricular tachycardia Acute
[2017-10-23] MEDS ORDERED: HALOPERIDOL LACT 5 MG/ML INJ IVP PRN (07:37)
[2017-10-23] MEDS ORDERED: ATROPINE SULFATE 0.4 MG/ML VIAL IVP PRN (08:02)
[2017-10-23] MEDS ORDERED: ATROPINE SULFATE 1 MG/10 ML SYR IVP PRN (08:14)
--- NOTE | 2017-10-23 09:10 | PDCARCONS ---
Cardiology Consult Reason for Consult: Electrophysiology consultation for bradycardia Chief Complaint: Bradycardia, heart rate in the low 30s at night, patient needing beta-jazmin therapy for cardiomyopathy as well as ventricular tachycardia. Patient is confused, and RN are at bedside. Requesting Physician: Dr. Mack De La Garza History of Present Illness: This is a 82-year-old male who presented to the hospital in late September with ventricular tachycardia and atrial fibrillation. He underwent coronary angiography that showed critical proximal LAD disease. He underwent CABG, Maze procedure and excision of the left atrial appendage, of note there was thrombus in the left atrial appendage. He has been started back on warfarin and beta-blockers. Since initiation of beta-jazmin therapy, he is having episodes of bradycardia. I have been requested to consult on him to discuss pacemaker implantation. The patient has been confused and sundowning and cannot provide any history regarding lightheadedness, chest pain or shortness of breath. History Information - Allergies/Home Medication List Allergies/Adverse Reactions: hydrochlorothiazide Allergy (Verified 10/18/17 17:34) Other-Enter Comments bag grader patches Allergy (Uncoded 10/18/17 17:34) Itching Home Medications: Lisinopril [Zestril 5 mg (*)] 2.5 mg PO DAILY 10/18/17 [Last Taken 10/18/17 06: 00] Metoprolol Tartrate [Lopressor 25 mg (*)] 50 mg PO BID 10/18/17 [Last Taken 08/06 06:00] Oxymetazoline HCl [Afrin Nasal [place]] 2 spray EACHNARE DAILY PRN 10/18/17 [Last Taken 10/18/17 18:00] I have personally reviewed and updated: family history, medical history, social history, surgical history Past Medical History: - Past Medical History atrial fibrillation, dementia - Surgical History Reports: coronary bypass surgery - Social History Smoking Status: Never smoked Physical Exam Physical Exam: Temp Pulse Resp BP Pulse Ox 36.3 C 50 L 18 104/46 L 98 10/22/17 23:02 10/23/17 08:00 10/23/17 08:00 10/23/17 08:00 10/23/17 08:00 O2 (L/minute) 2 FIO2 (%) 40 Constitutional: uncomfortable, unkempt Eyes: PERRL, EOMI Ears, Nose, Mouth, Throat: moist mucous membranes Cardiovascular: regular rate and rhythym, no murmur, rub, or gallop Respiratory: no respiratory distress Lab and Imaging 10/21/17 04:15 10/23/17 04:30 WBC 18.38 10^3/uL (3.80-9.50) H 10/21/17 04:15 RBC 3.37 10^6/uL (4.40-6.38) L 10/21/17 04:15 Hgb 10.1 g/dL (13.7-17.5) L 10/21/17 04:15 POC Hgb 9.9 gm/dL (13.7-17.5) L 10/19/17 23:34 Hct 31.4 % (40.0-51.0) L 10/21/17 04:15 POC Hct 29 % (40-51) L 10/19/17 23:34 MCV 93.2 fL (81.5-99.8) 10/21/17 04:15 MCH 30.0 pg (27.9-34.1) 10/21/17 04:15 MCHC 32.2 g/dL (32.4-36.7) L 10/21/17 04:15 RDW 13.7 % (11.5-15.2) 10/21/17 04:15 Plt Count 169 10^3/uL (150-400) 10/21/17 04:15 MPV 10.4 fL (8.7-11.7) 10/21/17 04:15 Neut % (Auto) 89.0 % (39.3-74.2) H 10/21/17 04:15 Lymph % (Auto) 4.3 % (15.0-45.0) L 10/21/17 04:15 Warren % (Auto) 5.9 % (4.5-13.0) 10/21/17 04:15 Eos % (Auto) 0.0 % (0.6-7.6) L 10/21/17 04:15 Baso % (Auto) 0.1 % (0.3-1.7) L 10/21/17 04:15 Nucleat RBC Rel Count 0.0 % (0.0-0.2) 10/21/17 04:15 Absolute Neuts (auto) 16.36 10^3/uL (1.70-6.50) H 10/21/17 04:15 Absolute Lymphs (auto) 0.79 10^3/uL (1.00-3.00) L 10/21/17 04:15 Absolute Monos (auto) 1.09 10^3/uL (0.30-0.80) H 10/21/17 04:15 Absolute Eos (auto) 0.00 10^3/uL (0.03-0.40) L 10/21/17 04:15 Absolute Basos (auto) 0.01 10^3/uL (0.02-0.10) L 10/21/17 04:15 Absolute Nucleated RBC 0.00 10^3/uL (0-0.01) 10/21/17 04:15 Immature Gran % 0.7 % (0.0-1.1) 10/21/17 04:15 Immature Gran # 0.13 10^3/uL (0.00-0.10) H 10/21/17 04:15 PT 22.5 SEC (12.0-15.0) H 10/23/17 04:30 INR 1.97 (0.83-1.16) H 10/23/17 04:30 POC Blood Source ARTERIAL 10/19/17 21:05 Patient Temperature 36.6 DEGREES 10/19/17 21:05 POC pH 7.30 (7.35-7.45) L 10/19/17 21:05 POC pCO2 45 mmHg (34-38) H 10/19/17 21:05 POC pO2 76 mmHg (65-75) H 10/19/17 21:05 POC HCO3 22 mEq/L (22-26) 10/19/17 21:05 POC Total CO2 23 mEq/L (23-27) 10/19/17 21:05 POC Base Excess -5.0 mEq/L (-2.5-2.5) L 10/19/17 21:05 POC O2 Sat (Calc) 94 % (92-95) 10/19/17 21:05 POC FiO2 45.0000 % (0-100) 10/19/17 17:00 POC Sodium 143 mEq/L (135-145) 10/19/17 23:34 Sodium 141 mEq/L (135-145) 10/23/17 04:30 POC Potassium 4.2 mEq/L (3.3-5.0) 10/19/17 23:34 Potassium 4.5 mEq/L (3.5-5.2) 10/23/17 04:30 POC Chloride 110 mEq/L (97-110) 10/19/17 23:34 Chloride 108 mEq/L (97-110) 10/23/17 04:30 Carbon Dioxide 25 mEq/l (22-31) 10/23/17 04:30 Anion Gap 8 mEq/L (8-16) 10/23/17 04:30 POC BUN 23 mg/dL (7-23) 10/19/17 23:34 BUN 55 mg/dL (7-23) H 10/23/17 04:30 Creatinine 1.3 mg/dL (0.7-1.3) 10/23/17 04:30 POC Creatinine 1.3 mg/dL (0.7-1.3) 10/19/17 23:34 Estimated GFR 53 10/23/17 04:30 Glucose 99 mg/dL (70-100) 10/23/17 04:30 POC Glucose 123 mg/dL (70-100) H 10/20/17 10:29 Calcium 8.2 mg/dL (8.5-10.4) L 10/23/17 04:30 Total Bilirubin 0.8 mg/dL (0.1-1.4) 10/22/17 05:20 AST 76 IU/L (17-59) H 10/22/17 05:20 ALT 27 IU/L (21-72) 10/22/17 05:20 Alkaline Phosphatase 78 IU/L (38-126) 10/22/17 05:20 Total Protein 5.1 g/dL (6.3-8.2) L 10/22/17 05:20 Albumin 2.8 g/dL (3.5-5.0) L 10/22/17 05:20 Patient ABO/Rh A POSITIVE 10/18/17 12:35 Antibody Screen NEGATIVE 10/18/17 12:35 A/P Assessment: 1. Coronary artery disease status post CABG 2. Ischemic cardiomyopathy 3. Atrial fibrillation status post Maze procedure 4. 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 Junctional bradycardia, heart rate 32 beats per minute 6. Ventricular tachycardia requiring beta-jazmin therapy Plan: 82-year-old male with above problems. Limited echocardiogram today showed normalization of left ventricular ejection fraction with revascularization. However he needs beta-jazmin therapy because of atrial fibrillation and ventricular tachycardia. With beta-blockers on board , his heart rates are as low as 32 beats per minute, junctional bradycardia, requiring pacing with epicardial wires. Permanent pacemaker implantation is appropriate. Patient is not able to sign consent because of confusion. Discussed risks with his , RN was present at the time of this discussion. Risks of procedure including , cardiac tamponade, pneumothorax, DVT, pulmonary embolism, lead dislodgement, infection, bleeding, superior vena cava syndrome etc. Were discussed with them. Procedure will be performed later this morning.
--- NOTE | 2017-10-23 09:30 | PDINTPN ---
Product Introduction Manager Progress Note Assessment/Plan: Assessment/plan: * Coronary artery disease * Status post coronary * Bypass graft atrial fibrillation * Acute renal insufficiency-resolved * History of alcoholism * Bradycardia -for pacemaker * History of mild dementia-mental status still altered * VT prophylaxis * PT/OT Subjective: Resting comfortably. Somewhat confused today. Objective: Vital Signs Temp Pulse Resp BP Pulse Ox 36.3 C 50 L 18 104/46 L 98 10/22/17 23:02 10/23/17 08:00 10/23/17 08:00 10/23/17 08:00 10/23/17 08:00 Laboratory Results 10/21/17 04:15 10/23/17 04:30 10/22/17 10/23/17 10/24/17 05:59 05:59 05:59 Intake Total 1890 240 Output Total 1100 300 Balance 790 -60 PT 22.5 SEC (12.0-15.0) H 10/23/17 04:30 INR 1.97 (0.83-1.16) H 10/23/17 04:30 - Time Spent With Patient Time Spent With Patient: 25 min of time spent with patient, over 1/2 involved with coordination of care or counseling Physical Exam - Physical Exam General Appearance: mild distress, No alert EENT: PERRL/EOMI Neck: non-tender, full range of motion, supple, normal inspection Respiratory: chest non-tender, lungs clear, normal breath sounds Cardiac/Chest: normal peripheral pulses, regular rate, rhythm, systolic murmur Peripheral Pulses: 2+: carotid (R), carotid (L), femoral (R), femoral (L), dorsalis-pedis (R), dorsalis-pedis (L) Abdomen: normal bowel sounds, non-tender, soft Male Genitalia: deferred Rectal: deferred Skin: normal color, warm/dry Extremities: normal range of motion, non-tender, normal inspection, normal capillary refill ICD10 Worksheet Patient Problems: Problems Problem Status Onset S/P CABG x 3 Acute S/P ablation of atrial fibrillation Acute chronic disease mgmt/transitional care Acute Congestive heart failure Acute Primary osteoarthritis of right knee Acute Ventricular tachycardia Acute
[2017-10-23] MEDS: ASPIRIN 81 MG CHEWABLE TAB PO SCH (09:42)
[2017-10-23] MEDS: SIMETHICONE 80 MG TAB CHEW PO SCH ×4 (09:43→21:42)
[2017-10-23] MEDS: SENNOSIDES/DOCUSATE SODIUM TAB PO SCH ×2 (09:43→21:41)
[2017-10-23] MEDS: METOPROLOL TARTRATE 25 MG TAB PO SCH ×3 (09:43→23:46)
[2017-10-23] MEDS: PANTOPRAZOLE SODIUM 40 MG TAB PO SCH (09:43)
[2017-10-23] MEDS ORDERED: NS 1,000 ML IV ONE (10:28)
[2017-10-23] MEDS ORDERED: ceFAZolin 2 GM/SWFI 2 GM/20 ML SYR IVP ONE (10:28)
[2017-10-23] MEDS ORDERED: BACITRACIN IRRIGATION/NS 50,000 UNITS/1,000 ML BTL IRR ONE (10:28)
[2017-10-23] MEDS ORDERED: LIDOCAINE 1% 300 MG/30 ML SDV ONE (11:19)
[2017-10-23] MEDS ORDERED: IOPAMIDOL (ISOVUE-300) 100 ML BTL ONE (11:19)
[2017-10-23] MEDS ORDERED: BUPIVACAINE 0.5% 30 ML SDV ONE (11:19)
[2017-10-23] MEDS ORDERED: fentaNYL 100 MCG/2 ML INJ ONE (11:20)
[2017-10-23] MEDS ORDERED: PROPOFOL/EMULSION 500 MG/50 ML BOTTLE IV ONE (11:20)
[2017-10-23] MEDS ORDERED: REMIFENTANIL HCL 1 MG VIAL ONE (11:20)
[2017-10-23 11:32] LABS: PLATELET COUNT 198 10^3/uL (150-400)
--- NOTE | 2017-10-23 11:34 | PDANEPAE ---
ANE History of Present Illness 82 yo for pm s/p cabg maze ANE Past Medical History - Cardiovascular History Hx Hypertension: Yes Hx Arrhythmias: Yes Hx Chest Pain: No Hx Coronary Artery / Peripheral Vascular Disease: Yes Hx CHF / Valvular Disease: Yes Hx Palpitations: No Cardiovascular History Comment: OCCASSIONAL SWELLING IN LEGS USES HCTZ PRN - Pulmonary History Hx COPD: No Hx Asthma/Reactive Airway Disease: No Hx Recent Upper Respiratory Infection: No Hx Oxygen in Use at Home: No Hx Sleep Apnea: No Sleep Apnea Screening Result - Last Documented: Positive - Neurologic History Hx Cerebrovascular Accident: No Hx Seizures: No Hx Dementia: No - Endocrine History Hx Diabetes: No - Renal History Hx Renal Disorders: No Renal History Comment: ELEVATED PSA - Liver History Hx Hepatic Disorders: No - Neurological & Psychiatric Hx Hx Neurological and Psychiatric Disorders: No - Cancer History Hx Cancer: No - Congenital Disorder History Hx Congenital Disorders: No - GI History Hx Gastrointestinal Disorders: No - Other Health History Other Health History: Hx severe nose bleeds with interventions. bruises easily. pt had serious fall in may, hematoma to skull and coccyx - Chronic Pain History Chronic Pain: No (RIGHT KNEE PAIN) - Surgical History Prior Surgeries: RIGHT CLAVICLE FX AND REPAIR IN 1955. BILATERAL HERNIA REPAIRS. RIGHT LEG VARICOSE VEIN 1967. bilat cataract sx. R tka. ANE Review of Systems Review of Systems: - Exercise capacity METS (RN): 2 METS ANE Patient History - Allergies Allergies/Adverse Reactions: hydrochlorothiazide Allergy (Verified 10/18/17 17:34) Other-Enter Comments secured entrance monitor patches Allergy (Uncoded 10/18/17 17:34) Itching - Home Medications Home medications: home medication list seen and reviewed Home Medications: Lisinopril [Zestril 5 mg (*)] 2.5 mg PO DAILY 10/18/17 [Last Taken 10/18/17 06: 00] Metoprolol Tartrate [Lopressor 25 mg (*)] 50 mg PO BID 10/18/17 [Last Taken 08/06 06:00] Oxymetazoline HCl [Afrin Nasal [place]] 2 spray EACHNARE DAILY PRN 10/18/17 [Last Taken 10/18/17 18:00] - NPO status NPO Status: no food or drink >8 hours NPO Since - Liquids (Date): 10/18/17 NPO Since - Liquids (Time): 22:00 NPO Since - Solids (Date): 10/18/17 NPO Since - Solids (Time): 22:00 - Smoking Hx Smoking Status: Never smoked - Family Anes Hx Family Hx Anesthesia Complications: NONE ANE Labs/Vital Signs - Labs Result Diagrams: 10/23/17 10:51 10/23/17 04:30 - Vital Signs Blood Pressure: 104/46 Heart Rate: 50 Respiratory Rate: 18 O2 Sat (%): 98 Height: 5 ft 9 in Weight: 75.8 kg ANE Physical Exam - Airway Neck exam: FROM Mallampati Score: Class 2 Mouth exam: normal dental/mouth exam - Pulmonary Pulmonary: no respiratory distress - Cardiovascular Cardiovascular: regular rate and rhythym ANE Anesthesia Plan Anesthesia Plan: general endotracheal anesthesia
--- NOTE | 2017-10-23 13:38 | POSTANESTH ---
Post Anesthetic Evaluation Cardiovascular Status: Normal, Stable Respiratory Status: Normal, Stable Level of Consciousness/Mental Status: Moderately Sleepy Pain Control: Adequate, Prn Tx Ordered Nausea/Vomiting Control: Adequate, Prn Tx Ordered Complications Possibly Related to Anesthesia: None Noted
--- NOTE | 2017-10-23 14:12 | EPPROC ---
Electrophysiology Procedure Note: PROCEDURE PERFORMED: 1. Implantation of an A/V Pacemaker 2. Subclavian vein angiography 3. Fluoroscopy INDICATION: Bradycardia 32 bpm Needs beta jazmin due to h/o cardiomyopathy, AFIB and VT PROCEDURE NOTE: Patient presented to the cardiac catheterization laboratory in a fasting, post absorptive state . Dr. Singh administered anesthesia due to patients underlying confusion. The left infraclavicular area was prepped and draped in the usual sterile fashion. Lidocaine plus bupivacaine was used for local anesthesia. Left subclavian venography was performed by injection of iodinated contrast into the left antecubital vein. This was done to assure patency of the vein and also to assess for any anatomical aberrations. Using a combination of blunt and sharp dissection and electrocautery, the dissection was carried down to the prepectoral fascia. A pocket was made in this anatomical plane. All bleeding was controlled with electrocautery. The pocket was packed with gauze soaked in antibiotic solution. Fluoroscopy was utilized during the entire procedure for venous access and placement of the leads. Using a direct stick technique the left extrathoracic axillary vein was accessed with 2 sticks using the modified Seldinger technique. Placement of the guidewires into the venous system was confirmed by low-pressure blood return and also by visualizing the guidewires advancing into the inferior vena cava. A purse string suture was applied around the guidewires. Two #7 Maltese sheaths were advanced under fluoroscopic guidance over the guidewire. An active fixation ventricular lead was advanced into the right ventricular apex and screwed in place. An active fixation atrial lead was advanced into the right atrial appendage and screwed in place. The peel away sheaths were removed. Pacing thresholds, sensing parameters and lead impedances were measured. There was no diaphragmatic stimulation at maximum output. The leads were sutured to the prepectoral fascia with 3 nonabsorbable sutures each. The pocket was again inspected for any bleeding. The leads were attached to the pacemaker securely. The pacemaker was inserted into the pocket and secured in place with a nonabsorbable suture. Fluoroscopy was performed in MUSA and WOLOF planes to verify right-sided placement of the leads. Also fluoroscopy of the pacemaker pocket was performed. The pacemaker pocket was closed in 3 layers with absorbable monocryl sutures and chula. Appropriate dressing was applied. The patient left the cardiac catheterization laboratory in stable condition. Serial Numbers: 1. Device: SJM Assurity MRI [id number] 2. Atrial Lead: SJM [id number]/52 cm SN [id number] 3. Ventricular Lead: SJM Tendril 2088TC / 58 cm [id number] Stimulation Thresholds & Impedance Measurements: 1. Atrial Lead P 1 mV 322 ohm 0.7 V 0.5 ms 2. Ventricular Lead R 8.8 mV 494 ohm 0.5 V 0.5 ms Aj Pacing Parameters 1. Pacing mode: DDDR 2. Lower rate: 60ppm 3. Upper tracking rate: 130 ppm 4. Upper sensor rate: 130 ppm Patient Problems: Problems Problem Status Onset chronic disease mgmt/transitional care Acute S/P ablation of atrial fibrillation Acute S/P CABG x 3 Acute Primary osteoarthritis of right knee Acute Ventricular tachycardia Acute Congestive heart failure Acute
--- NOTE | 2017-10-23 14:40 | ECHO ---
[email or web address] [address] Main: [phone] Fax: Transthoracic Echocardiogram Name: MINGO ISRAEL MR#: [id number] Study Date: 10/23/2017 Study Time: 08:49 AM Date of : 1935 Age: 82 year(s) Height: 175.3 cm (69 in.) Weight: 75.75 kg (167 lb.) BSA: 1.91 m2 Gender: Male Examination: Limited Echo Indication: Eval EF preop permanent pacer/recent history CABG Image Quality: Contrast: Requested by: Shari Mackay BP: 104 mmHg/46 mmHg Heart Rate: Rhythm: Indication: Eval EF preop permanent pacer/recent history CABG Procedure Staff Medical Lab Director: Carole Pedersen [facility] Reading Physician: Debra Lang MD Requesting Provider: Conclusions: The ejection fraction is estimated to be 65-70 %. LV septal motion consistent with conduction abnormality/post op state. . Compared with 10/12/2017 LV systolic function has improved and wall motion abnormalities have resolved Measurements: Chambers Valvular Assessment AV/MV Valvular Assessment TV/PV Normal Normal Normal Name Value Range Name Value Range Name Value Range EF Range: 65-70 % TR Vmax: 2.31 mm/s ( - ) TR PGmax: 21 mmHg ( - ) syst. PAP: 26 mmHg ( - ) Continued Measurements: Valvular Assessment TV/PV Name Value CVP (est.): 5 mmHg Findings: Left Ventricle: The ejection fraction is estimated to be 65-70 %. LV septal motion consistent with conduction abnormality/post op state. . (No Signature Object) Patient: MINGO ISRAEL Study Date: 10/23/2017 Page 1 of 2 08:49 AM Patient: MINGO ISRAEL Study Date: 10/23/2017 Page 2 of 2 08:49 AM [id number]
--- NOTE | 2017-10-23 14:49 | ASMTCMCOM ---
CM Note CM Note Notes: Patient to get a pacer today. can be agitated and combative due to dementia. leaning more to having him return home with HC than go to a SNF rehab on discharge. She feels that [facility]. Date Signed: 10/23/2017 02:48 PM Electronically Signed By:Lois Grider LCSW
--- NOTE | 2017-10-23 15:26 | CPEKG ---
Heart Rate: 63 RR Interval: 952 P-R Interval: 340 QRSD Interval: 102 QT Interval: 440 QTC Interval: 451 QRS Leiter: -15 T Wave Leiter: 27 EKG Severity - ABNORMAL ECG - EKG Impression: ATRIAL-PACED RHYTHM EKG Impression: BORDERLINE LEFT AXIS DEVIATION EKG Impression: pericarditis Electronically Signed By: Taco Flores 23-Oct-2017 16:58:52
[2017-10-23] MEDS ORDERED: FLUMAZENIL 0.5 MG/5 ML MDV IVP ONE (16:00)
[2017-10-23] MEDS ORDERED: NALOXONE HCL 0.4 MG/ML INJ IVP ONE (16:30)
[2017-10-23] MEDS: MELATONIN 3 MG TAB PO SCH (21:41)
--- NOTE | 2017-10-24 06:17 | SOAPPROG ---
SOAP Progress Note Assessment/Plan: POD#5 CABG x 3 (FERNANDEZ-LAD, SV sequentially to D1 & D2), open vein harvest LLE, Stanley-Maze IV procedure POD#1: A/V pacemaker implantation Sx CAD - s/p uncomplicated CABG. Secondary prevention with baby ASA, BB as tolerated, and statin when eating well. 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 No sig volume overload. Use of LifeVest TBD. Recently diagnosed AF - Anticoagulated with Coumadin for [id number] score of 5. LOUIE clot identified on intraop MARANDA and extracted (see pics front of chart) prior to LA exclusion/Maze. Postop rhythm SR/ST/bradycardia s/p pacemaker implantation. Antithrombotic prophylaxis with Coumadin to resume once coagulopathy resolved. Prior INR parameters of 2-3 sufficient surgical prophylaxis. Postop TAMI - Resolved. Acute expected blood loss anemia with coagulopathy - No evidence active bleeding. Monitor. Hx mild senile dementia - Postop nocturnal delirium. Supportive measures. Haldol prn. Hx alcohol dependence - LFTs WNL. Daily ETOH resumed prn. Hx severe epistaxis/cauterization - Care with anticoag. Bradycardia - stable s/p pacemaker implantation. VT prophylaxis - SCDs/heparin SQ held while INR elevated Disposition - SNF/IPR. Subjective: comfortable. Would like to know when to expect to recover and when he's leaving the hospital. Objective: Vital Signs Temp Pulse Resp BP Pulse Ox 36.2 C 64 16 144/89 H 99 10/23/17 23:44 10/24/17 06:00 10/24/17 06:00 10/24/17 06:00 10/24/17 06:00 Laboratory Results 10/24/17 05:45 10/23/17 10/24/17 10/25/17 05:59 05:59 05:59 Intake Total 240 416.8 Output Total 300 1275 Balance -60 -858.2 PT 22.5 SEC (12.0-15.0) H 10/23/17 04:30 INR 1.97 (0.83-1.16) H 10/23/17 04:30 Physical Exam - Physical Exam General Appearance: WD/WN, alert, no apparent distress EENT: No scleral icterus (R), No scleral icterus (L) Neck: normal inspection Respiratory: No respiratory distress Cardiac/Chest: other (a-paced) Abdomen: non-tender, soft, No distended Skin: normal color, warm/dry Extremities: No pedal edema Neuro/Psych: other (cognition improving) ICD10 Worksheet Patient Problems: Problems Problem Status Onset S/P CABG x 3 Acute S/P ablation of atrial fibrillation Acute chronic disease mgmt/transitional care Acute Congestive heart failure Acute Primary osteoarthritis of right knee Acute Ventricular tachycardia Acute
[2017-10-24 08:05] LABS: PLATELET COUNT 210 10^3/uL (150-400)
[2017-10-24] MEDS: SENNOSIDES/DOCUSATE SODIUM TAB PO SCH ×4 (08:06→21:00)
[2017-10-24] MEDS: traMADol 50 MG TAB PO PRN ×2 (08:06→12:21)
[2017-10-24] MEDS: ASPIRIN 81 MG CHEWABLE TAB PO SCH ×3 (08:08→12:20)
[2017-10-24] MEDS: PANTOPRAZOLE SODIUM 40 MG TAB PO SCH ×3 (08:08→12:19)
[2017-10-24] MEDS: METOPROLOL TARTRATE 25 MG TAB PO SCH ×2 (08:08→21:00)
[2017-10-24] MEDS: SIMETHICONE 80 MG TAB CHEW PO SCH ×4 (08:08→21:01)
--- NOTE | 2017-10-24 08:40 | CPEKG ---
Heart Rate: 64 RR Interval: 938 P-R Interval: 202 QRSD Interval: 100 QT Interval: 428 QTC Interval: 442 QRS [place]: -9 T Wave [place]: 30 EKG Severity - ABNORMAL ECG - EKG Impression: ATRIAL-PACED RHYTHM EKG Impression: LATERAL INJURY, PROBABLE EARLY ACUTE INFARCT EKG Impression: Lateral elevation in 1 and aVL new from EKG of October 12. Unchanged from October EKG Impression: 7th. Electronically Signed By: Kamran Merritt 24-Oct-2017 09:42:01
[2017-10-24] MEDS ORDERED: METOPROLOL TARTRATE 25 MG TAB PO ONE (09:00)
--- NOTE | 2017-10-24 09:10 | PDINTPN ---
P[employer]ove[employer] Progress Note Assessment/Plan: Assessment/plan: * Coronary artery disease * Status post coronary * Bypass graft atrial fibrillation * Acute renal insufficiency-resolved * History of alcoholism * Bradycardia -for pacemaker * History of mild dementia-mental status markedly improved today * VT prophylaxis * PT/OT Subjective: Up in chair. Conversant. Awake and alert. Objective: Vital Signs Temp Pulse Resp BP Pulse Ox 36.4 C 63 16 143/89 H 98 10/24/17 07:58 10/24/17 08:08 10/24/17 06:00 10/24/17 08:08 10/24/17 07:58 Laboratory Results 10/24/17 05:45 10/24/17 05:45 10/23/17 10/24/17 10/25/17 05:59 05:59 05:59 Intake Total 240 416.8 Output Total 300 1275 Balance -60 -858.2 PT 22.5 SEC (12.0-15.0) H 10/23/17 04:30 INR 1.97 (0.83-1.16) H 10/23/17 04:30 - Time Spent With Patient Time Spent With Patient: 25 min of time spent with patient, over 1/2 involved with coordination of care or counseling Physical Exam - Physical Exam General Appearance: WD/WN, alert, no apparent distress EENT: PERRL/EOMI Neck: non-tender, full range of motion, supple, normal inspection Respiratory: chest non-tender, lungs clear, normal breath sounds Cardiac/Chest: normal peripheral pulses, regular rate, rhythm, systolic murmur Abdomen: normal bowel sounds, non-tender, soft Male Genitalia: deferred Rectal: deferred Skin: normal color, warm/dry Extremities: normal range of motion, non-tender, normal inspection, normal capillary refill Neuro/Psych: alert ICD10 Worksheet Patient Problems: Problems Problem Status Onset S/P CABG x 3 Acute S/P ablation of atrial fibrillation Acute chronic disease mgmt/transitional care Acute Congestive heart failure Acute Primary osteoarthritis of right knee Acute Ventricular tachycardia Acute
[2017-10-24 10:07] LABS: INR 1.84 (0.83-1.16); PROTIME(PATIENT) 21.3 SEC (12.0-15.0)
[2017-10-24] MEDS ORDERED: METOPROLOL TARTRATE 25 MG TAB ONE (12:12)
[2017-10-24] MEDS ORDERED: NS 1,000 ML IV SCH (12:45)
--- NOTE | 2017-10-24 15:50 | ASMTCMCOM ---
CM Note CM Note Notes: Patient not qualifying for In-pt Rehab. given Private Duty Care Provider list and we can set up HC services. They have used [facility] in the past. Date Signed: 10/24/2017 03:49 PM Electronically Signed By:Lois Grider LCSW
--- NOTE | 2017-10-24 16:24 | PDCARPN ---
Cardiology Progress Note Chief Complaint: patient reports ongoing postop fatigue. But does report feeling better, after ppm implantation. Assessment/Plan: Assessment: 82-year-old male he is 5 days postoperative from CABG x3 vessel with Stanley Maze procedure noted ischemic cardiomyopathy LVEF 35-40%, history paroxysmal fibrillation. Noted to have symptomatic bradycardia postoperatively with heart rates down to [address] Flores implanted a dual chamber ppm right atrial and right ventricular lead implantation ([place] device). Today: Device check done by rep shows functioning within normal limits. Dressing intact without signs of infection. Chest x-ray showing no delayed pneumothorax, persistent lateral lower lobe atelectasis. Continues cardiac monitoring showing a paced with intrinsic ventricular response and AV paced. Laboratory studies continue showed postop anemia, at 8.7 & 27.1. BUN elevated at 47, creatinine of 1.1. Patient denies of any pain and incisional site. Denies of any chest pressure shortness of breath. Denies of any palpitations. Plan: 1. Bradycardia: Status post ppm, device functioning within normal limits. Have discussed with patient post pacemaker activity restrictions. Have set him up for one-week device and wound check at our [place] office. One-month follow-up with Dr. Flores. 2. Coronary artery disease: Status post CABG, patient is on aspirin, beta- blockers, and statin. Medication management deferred to CT surgery. 3. Postop anemia: Mildly decreased H&H from yesterday. Again will defer to CT surgery. 4. Paroxysmal atrial fibrillation: Patient currently in sinus rhythm. Patient has been resumed on beta-blockers. INR 1.84 today, again defer to CT surgery to restarted full anticoagulation. At this time, we will sign off. Please call us if you have any questions or concerns. Will plan for patient to follow up in outpatient clinic for device and wound check, and one-month follow-up with Dr. Flores, 10/24/17 16:23 Subjective: denies of any chest pressure pain. Reports no significant shortness of breath. Denies of any palpitations, lightheadedness. Reviewed/Discussed With: other (Dr Flores) Objective: Vital Signs (8 Hrs) Temp Pulse Resp BP Pulse Ox 10/24/17 12:20 63 130/81 H 10/24/17 12:00 36.5 C 63 20 130/81 H 90 L 10/24/17 10:35 93 Intake/Output (24 Hrs) 10/23/17 10/24/17 10/25/17 05:59 05:59 05:59 Intake Total 240 416.8 Output Total 300 1275 Balance -60 -858.2 Intake: Oral (ml) 200 350 IV Infused (ml) 40 66.8 DOPamine/DEXTROSE 250 ml 40 66.8 @ Titrate IV CONT ANGELA Rx# :[id number] Output: Urine (ml) 150 1275 Catheter 1275 Toilet 150 Chest Tube Output (ml) 150 Location 1 150 Other: Weight 75.8 kg 75.8 kg 72.9 kg Output Comment Catheter staight cath Number of Voids Incontinence 1 1 Toilet 1 Number of Stools Toilet 1 Bladder Scan Volume (ml) Toilet 398 0 Result Diagrams: 10/24/17 05:45 10/24/17 05:45 - Physical Exam Constitutional: WDWN, no apparent distress Ears, Nose, Mouth, Throat: moist mucous membranes Cardiovascular: regular rate and rhythm, pulses symmetric bilat, No jugular vein distention Peripheral Pulses: 1+: dorsalis-pedis (R), dorsalis-pedis (L), 2+: carotid (R), carotid (L) Respiratory: other ( Diminished in bases bilateral, no rhonchi, rales, or wheezing noted. No accessary muscle use, no intercostal muscle retraction noted.) Skin: warm, other ( ppm dressing clean dry and intact without signs of redness swelling drainage. Mid sternotomy incision without signs of infection) Neurologic: AAOx3 Psychiatric: cooperative, following commands ICD10 Worksheet Patient Problems: Problems Problem Status Onset chronic disease mgmt/transitional care Acute S/P ablation of atrial fibrillation Acute S/P CABG x 3 Acute Primary osteoarthritis of right knee Acute Ventricular tachycardia Acute Congestive heart failure Acute
[2017-10-24] MEDS: LISINOPRIL 5 MG TAB PO SCH (21:01)
[2017-10-25 05:07] LABS: INR 1.73 (0.83-1.16); PROTIME(PATIENT) 20.4 SEC (12.0-15.0)
--- NOTE | 2017-10-25 06:50 | SOAPPROG ---
SOAP Progress Note Assessment/Plan: POD#6 CABG x 3 (FERNANDEZ-LAD, SV sequentially to D1 & D2), open vein harvest LLE, Stanley-Maze IV procedure, removal of LOUIE clot POD#2: A/V pacemaker implantation Sx CAD - s/p uncomplicated CABG. Secondary prevention with baby ASA and BB as tolerated. Statin at discretion of cardiology. 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 No sig volume overload. Use of LifeVest TBD. Recently diagnosed AF - Anticoagulated with Coumadin for [id number] score of 5. LOUIE clot identified on intraop MARANDA and extracted (see pics front of chart) prior to LA exclusion/Maze. Postop rhythm SR/ST/bradycardia s/p pacemaker implantation. Antithrombotic prophylaxis with Coumadin to resume once coagulopathy resolved. Prior INR parameters of 2-3 sufficient surgical prophylaxis. Postop TAMI - Resolved. Acute expected blood loss anemia with coagulopathy - No evidence active bleeding. Monitor. Hx senile dementia - Postop nocturnal delirium. Supportive measures. Hx alcohol dependence - LFTs WNL. Daily ETOH resumed prn. Hx severe epistaxis/cauterization - Care with anticoag. Bradycardia - stable s/p pacemaker implantation. VT prophylaxis - SCDs. Heparin SQ held while INR elevated. Disposition - SNF/IPR. Subjective: Denies pain/SOB. Objective: Vital Signs Temp Pulse Resp BP Pulse Ox 36.6 C 62 14 152/94 H 93 10/25/17 04:00 10/25/17 04:00 10/25/17 04:00 10/25/17 04:00 10/25/17 04:00 Laboratory Results 10/25/17 04:35 10/25/17 04:35 10/24/17 10/25/17 10/26/17 05:59 05:59 05:59 Intake Total 416.8 1860 Output Total 1275 350 Balance -858.2 1510 PT 20.4 SEC (12.0-15.0) H 10/25/17 04:35 INR 1.73 (0.83-1.16) H 10/25/17 04:35 Physical Exam - Physical Exam General Appearance: WD/WN, alert, no apparent distress EENT: No scleral icterus (R), No scleral icterus (L) Neck: normal inspection Respiratory: No respiratory distress Cardiac/Chest: other (a-paced) Abdomen: non-tender, soft, No distended Skin: normal color, warm/dry Extremities: No pedal edema Neuro/Psych: no motor/sensory deficits, alert, normal mood/affect ICD10 Worksheet Patient Problems: Problems Problem Status Onset S/P CABG x 3 Acute S/P ablation of atrial fibrillation Acute chronic disease mgmt/transitional care Acute Congestive heart failure Acute Primary osteoarthritis of right knee Acute Ventricular tachycardia Acute
[2017-10-25] MEDS ORDERED: NS 1,000 ML IV SCH (08:15)
[2017-10-25] MEDS: METOPROLOL TARTRATE 25 MG TAB PO SCH ×2 (09:02→22:15)
[2017-10-25] MEDS: LISINOPRIL 5 MG TAB PO SCH (09:03)
[2017-10-25] MEDS: SIMETHICONE 80 MG TAB CHEW PO SCH ×4 (09:03→22:16)
[2017-10-25] MEDS: SENNOSIDES/DOCUSATE SODIUM TAB PO SCH ×2 (09:03→22:17)
[2017-10-25] MEDS: ASPIRIN 81 MG CHEWABLE TAB PO SCH (09:03)
[2017-10-25] MEDS: PANTOPRAZOLE SODIUM 40 MG TAB PO SCH (09:03)
[2017-10-25] MEDS ORDERED: LISINOPRIL 2.5 MG TAB PO ONE ×2 (14:11→16:30)
--- NOTE | 2017-10-25 14:18 | ASMTCMCOM ---
CM Note CM Note Notes: Spoke with Rocio Araujo this morning who states patient is not eligible for inpatient rehab and would be more appropriate for SNF rehab. Patient's Pushpa plans to visit [facility] this afternoon to see if the facility is supportive of patient's needs. Pushpa is somewhat torn between SNF rehab and home health services. She would like to get her questions answered regarding what the schedule is because if he mostly sits and goes to PT once or twice per day she would feel more comfortable taking him home. Patient did not like [facility] stating it was dark, dreary and depressing. It's important patient goes to a light filled, cheerful facility. Pushpa plans to talk to the director case on 2W as soon as she has gotten her questions answered and made her decision. Pushpa is somewhat concerned about Dr. De La Garza preferring his patient's not do home health care and she does know he has concerns about her managing patient on a 24 hour basis. Pushpa has considered home care and hiring some personal caretakers who can relieve her from time to time. CM will follow. Date Signed: 10/25/2017 02:17 PM Electronically Signed By:Kaylyn Villagomez LCSW
[2017-10-26 03:43] LABS: INR 1.58 (0.83-1.16)
--- NOTE | 2017-10-26 06:51 | SOAPPROG ---
SOAP Progress Note Assessment/Plan: POD#7 CABG x 3 (FERNANDEZ-LAD, SV sequentially to D1 & D2), open vein harvest LLE, Stanley-Maze IV procedure, removal of LOUIE clot POD#3: A/V pacemaker implantation Sx CAD - s/p uncomplicated CABG. Secondary prevention with baby ASA and BB as tolerated. Statin at discretion of cardiology. ISCM with LVEF 35-40%, LVDD, and NSVT - LifeVest preop without post-op need as last ECHO showed improvement in LV function. Recently diagnosed AF - Anticoagulated with Coumadin for [id number] score of 5. LOUIE clot identified on intraop MARANDA and extracted (see pics front of chart) prior to LA exclusion/Maze. Postop rhythm SR/ST/bradycardia s/p pacemaker implantation. Antithrombotic prophylaxis with Coumadin resumed. Prior INR parameters of 2-3 sufficient surgical prophylaxis. Postop TAMI - Resolved. Acute expected blood loss anemia with coagulopathy - Stable. Hx senile dementia - Postop nocturnal delirium. Continue supportive measures. Hx alcohol dependence - LFTs WNL. Daily ETOH resumed prn. Hx severe epistaxis/cauterization - Care with anticoag. Bradycardia - stable s/p pacemaker implantation. VT prophylaxis - SCDs. Heparin SQ held while INR elevated. Disposition - home today with services. Subjective: Denies pain/SOB. bedside and insistent on taking patient home against Dr. De La Garza's wishes of SNF placement. understands risks. Objective: Vital Signs Temp Pulse Resp BP Pulse Ox 36.8 C 63 16 155/96 H 98 10/26/17 04:00 10/26/17 04:00 10/26/17 04:00 10/26/17 04:00 10/26/17 04:00 Laboratory Results 10/25/17 04:35 10/26/17 03:15 10/25/17 10/26/17 10/27/17 05:59 05:59 05:59 Intake Total 1860 1600 Output Total 350 550 Balance 1510 1050 PT 19.0 SEC (12.0-15.0) H 10/26/17 03:15 INR 1.58 (0.83-1.16) H 10/26/17 03:15 Physical Exam - Physical Exam General Appearance: WD/WN, alert, no apparent distress EENT: No scleral icterus (R), No scleral icterus (L) Neck: normal inspection Respiratory: No respiratory distress Cardiac/Chest: other (paced) Abdomen: non-tender, soft, No distended Skin: normal color, warm/dry Extremities: No pedal edema Neuro/Psych: no motor/sensory deficits, alert, normal mood/affect, cognition abnormalities ICD10 Worksheet Patient Problems: Problems Problem Status Onset S/P CABG x 3 Acute S/P ablation of atrial fibrillation Acute chronic disease mgmt/transitional care Acute Congestive heart failure Acute Primary osteoarthritis of right knee Acute Ventricular tachycardia Acute
[2017-10-26] MEDS ORDERED: METOPROLOL TARTRATE 25 MG TAB PO SCH (09:00)
[2017-10-26] MEDS ORDERED: LISINOPRIL 5 MG TAB PO SCH (09:00)
[2017-10-26] MEDS: SIMETHICONE 80 MG TAB CHEW PO SCH (09:07)
[2017-10-26] MEDS: PANTOPRAZOLE SODIUM 40 MG TAB PO SCH (09:07)
[2017-10-26] MEDS: SENNOSIDES/DOCUSATE SODIUM TAB PO SCH (09:07)
[2017-10-26] MEDS: ASPIRIN 81 MG CHEWABLE TAB PO SCH (09:07)
--- NOTE | 2017-10-26 09:36 | PDIAF ---
- Diagnosis Diagnosis: s/p CABG, Stanley-Maze 4, dementia Code Status: Full Code - Medication Management Discharge Medications: Medications to Continue on Transfer Oxymetazoline HCl [Afrin Nasal [place]] 2 spray EACHNARE DAILY PRN 10/18/17 [Last Taken 10/18/17 18:00] Acetaminophen [Tylenol 325mg (*)] 325 - 650 mg PO Q4HRS PRN tab 10/26/17 [Last Taken Unknown] Aspirin [Aspirin 81mg (*)] 81 mg PO DAILY tab.chew 10/26/17 [Last Taken Unknown ] Metoprolol Tartrate [Lopressor 25 mg (*)] 37.5 mg PO BID #0 tab 10/26/17 [Last Taken Unknown] Warfarin Sodium [Coumadin 1MG (*)] 1 mg PO DAILY AT 4PM #60 tab 10/26/17 [Last Taken Unknown] traMADol [Ultram 50 mg (*)] 25 mg PO Q6HRS PRN #20 tab 10/26/17 [Last Taken Unknown] Discharge Medications: Refer to the Discharge Home Medication list for PRN reason. PICC Care - Routine: N/A - Orders Services needed: Home Care, Registered Nurse, Physical Therapy, Occupational Therapy Home Care Face to Face: I certify that this patient was under my care and that I had the required [id number] encounter meeting the encounter requirements on the discharge day. My findings support the fact that the patient is homebound as defined in Home Care Face to Face Continued: CMS Chapter 7 Medicare Benefits Manual 30.1.1 , The condition of the patient is such that there exists a normal inability to leave home and consequently, leaving home would require a considerable and taxing effort. Isolation Type: None Oxygen: n/a Diet Recommendation: cardiac -low fat low salt Diet Texture: Regular Texture Diet Weigh Patient: daily Rojo: No Additional Instructions: Discharge Instructions: Call [facility] cardiac rehab to enroll in phase 2 classes if not already arranged. Sternal precautions x 4 weeks. Avoid lifting > 10lbs with an outstretched arm. Avoid push/pull activities. No driving until cleared by surgery. Elevate low legs at rest. Avoid prolonged standing or dangling. Cleanse wounds once daily with soap and water. Avoid immersion (pool, hot tub, bath) until scabs off. Ok to leave all wounds open to air. Avoid creams or ointments until scabs fall off. Log daily vital signs once home: weight, heart rate, blood pressure, and pulse oximetry if on oxygen. Call [facility] for overnight weight gain > 2lbs, weekly gain > 5lbs or worsening leg swelling. Call [facility] for resting heart rate > 140 OR for systolic blood pressure consistently < 90 or > 140. Target oxygen saturation > 89%. Ok to use [id number] medications for bowel function. Chest x-ray Instructions: Please obtain a chest xray prior to surgical appointment. Chest x-rays dont require an appointment. Come to the Emergency Room entrance at the [facility] location. Sign in at the computer kiosk in the entryway. You will be given a number and may sit in the waiting area until called. You will be registered and directed to the Imaging desk on the 1st floor. This process can take up to an hour. Make sure you allow enough time before your appointment to have your x-ray taken. PPM Device Precaution: 1. No lifting more the 10 pounds for 1 week with Left Arm 2. No shower or getting incision wet until after wound check 3. No submerging incision site until completely healed 4. Watch for sign of infection (fever, redness, swelling, drainage, night sweat or chills) Call Dr Flores's office immediately if you have any of these symptoms. 5. No Lifting Left arm higher the shoulder height for the next 6 weeks 6. No strenuous exercise for 2 weeks 7. Follow up for device and wound check on October 31 at 1:00pm 8. Follow up with Dr Flores on December 06 at 1:00pm 9. Call [facility] [phone] with any question or concerns - Labs/Radiology PT/INR Date: 10/27/17 (Call [facility] ([phone]) for further Coumadin dosing/mgmt (INR goal 2-3) ) - Follow Up Care Current Providers and Referrals: Mack De La Garza DO [Doctor of Osteopathy] - 11/07/17 11:30 am Ember Parker MD [Medical Doctor] - 10/30/17 3:00 pm (Please come 20 minutes prior to your appointment to complete paperwork, bring photo ID, insurance card and a list of all medications. ) Taco Flores MD [Medical Doctor] - (Follow up for device and wound check on October 31 at 1:00pm Follow up with Dr Flores on December 06 at 1:00pm)
--- NOTE | 2017-10-26 11:31 | PDDCSUM ---
Discharge Summary Discharge Summary: ADMISSION DATE: 10/19/17 DISCHARGE DATE: 10/26/17 ADMISSION DIAGNOSES: 1. CAD 2. Ischemic cardiomyopathy with VT and Life Vest placement 3. Long-standing persistent atrial fibrillation 4. Dementia DISCHARGE DIAGNOSES: 1. CAD 2. Ischemic cardiomyopathy with VT and Life Vest placement with post-op improvement in LVEF 3. Long-standing persistent atrial fibrillation 4. Dementia with transient worsening 5. Left atrial appendage thrombus 6. Acute blood loss anemia PROCEDURES 10/19/17, Mack De La Garza: 1. CABGx3 (FERNANDEZ-LAD, seq SVG-D1/D2), open vein harvest LLE 2. Removal of LOUIE thrombus 3. Stanley-Maze IV with AtriClip LOUIE 10/23/17, Taco Flores: 1. Implantation of A/V pacemaker HOSPITAL COURSE BY PROBLEM LIST 1. CAD - s/p CABGx3. Continue beta-jazmin and ASA. Statin at discretion of cardiology. 2. Ischemic cardiomyopathy with VT and Life Vest placement - post-op EF 65% without VT reoccurrence. Life Vest discontinued. 3. Long-standing persistent atrial fibrillation - s/p CM IV with post-op bradycardia requiring pacemaker implantation. Thromboprophylaxis with Coumadin, INR goal 2-3, at least 3 months. AF prophylaxis with beta-jazmin. 4. Dementia - worsening post-operatively with return to baseline on discharge. 5. Left atrial appendage thrombus - s/p removal. Thromboprophylaxis as per CM IV. 6. Acute blood loss anemia - stable without the need for transfusions. CONDITION Good DISPOSITION Home with home health care ACTIVITY Pt was instructed on sternal precautions, activity limitations, and which problems to call [facility] with. Please see Discharge Plan in chart for specifics. DISCHARGE MEDICATIONS Continue: Oxymetazoline HCl [Afrin Nasal [place]] 2 spray EACHNARE DAILY PRN New: Acetaminophen [Tylenol 325mg (*)] 325 - 650 mg PO Q4HRS PRN Aspirin [Aspirin 81mg (*)] 81 mg PO DAILY Metoprolol Tartrate [Lopressor 25 mg (*)] 37.5 mg PO BID (decreased from 50 mg BID) Warfarin Sodium [Coumadin 1MG (*)] 1 mg PO DAILY AT 4PM traMADol [Ultram 50 mg (*)] 25 mg PO Q6HRS PRN PENDING STUDIES/LABS 1. CXR prior to surgical follow-up 2. INR 10/27 (visiting RN with instructions to call [facility] for further management) FOLLOW-UP 1. Pacemaker device check, 10/31/17, 1:00 PM 2. Mack De La Garza, 11/07/17, 11:30 AM 3. Taco Flores, 12/06/17, 1:00 PM
[2017-10-26 11:54] VITALS: BP 147/93
--- NOTE | 2017-10-26 14:08 | ASDISCHSUM ---
Discharge Information Plan Status:Home with Home Health Medically Cleared to Leave:10/26/2017 Discharge Date:10/26/2017 12:45 PM CM D/C Disposition: ADT D/C Disposition:Home Health Service Projected Discharge Date:10/26/2017 11:00 AM Transportation at D/C: Discharge Delay Reason: Follow-Up Date:10/26/2017 11:00 AM Discharge Slot: Final Diagnosis:CAD, Afib Placement Information Referral Type:*Long-Term/SNF Referral ID:[id number] Provider Name: Address 1: Phone Number: Address 2: Fax Number: City: Selection Factors: State: Referral Type:*Home Health Care Services Referral ID:[id number] Provider Name:[facility] Address 1:[address] [place] [address] Address 2: City:[place] Selection Factors: State:[place] Patient Contact Information Contact Name:FLORI Relationship: Address:[address] City:[place] Alternate Phone: State/Zip Code:[place] [address] Email: Financial Information Financial Class:Medicare Primary Plan Desc:MEDICARE INPATIENT Primary Plan Number:[id number] Secondary Plan Desc:ZELALEM/ZEYAD SUPPLEMENT Secondary Plan Number:[id number] Assessment Information [facility] Initial CM Assessment Living Arrangements What is your living Answers: With Spouse arrangement? Who do you live with? Type Of Residence What kind of residence do Answers: House you live in? Discharge Plan Comments Coordination Status Comments Notes: Patient is an 82yo male who was admitted for CAD, AF and the need for surgical intervention. OT/PT ordered. Patient has been living independently with his in [place]. D/C plan TBD. CM will follow. Date Signed: 10/20/2017 10:00 AM Electronically Signed By:Kaylyn Villagomez LCSW [facility] CM Progress Note CM Note CM Note Notes: Spoke with pt and his Pushpa today regarding PT's SNF recommendation. Pt recovering slowly. They are open to a possible SNF d/c and if needed, would like [facility]. Referral sent via [employer]. Pt may improve over next couple days and go home with home care or be able to do outpt cardiac rehab. Pt had a R TKA in 05/03 and used [facility]. Pt likely will transfer to PCU over next day or two. CM will continue to follow. Date Signed: 10/21/2017 03:13 PM Electronically Signed By:JUAN Castillo [facility] CM Progress Note CM Note CM Note Notes: Patient to get a pacer today. can be agitated and combative due to dementia. leaning more to having him return home with HC than go to a SNF rehab on discharge. She feels that his mind is more comfortable [facility]. Date Signed: 10/23/2017 02:48 PM Electronically Signed By:Lois Grider LCSW [facility] CM Progress Note CM Note CM Note Notes: Patient not qualifying for In-pt Rehab. given Private Duty Care Provider list and we can set up HC services. They have used [facility] in the past. Date Signed: 10/24/2017 03:49 PM Electronically Signed By:Lois Grider LCSW [facility] Progress Note CM Note CM Note Notes: Spoke with Rocio Araujo this morning who states patient is not eligible for inpatient rehab and would be more appropriate for SNF rehab. Patient's Pushpa plans to visit [facility] this afternoon to see if the facility is supportive of patient's needs. Pushpa is somewhat torn between SNF rehab and home health services. She would like to get her questions answered regarding what the schedule is because if he mostly sits and goes to PT once or twice per day she would feel more comfortable taking him home. Patient did not like [facility] stating it was dark, dreary and depressing. It's important patient goes to a light filled, cheerful facility. Pushpa plans to talk to the caser on 2W as soon as she has gotten her questions answered and made her decision. Pushpa is somewhat concerned about Dr. De La Garza preferring his patient's not do home health care and she does know he has concerns about her managing patient on a 24 hour basis. Pushpa has considered home care and hiring some personal caretakers who can relieve her from time to time. CM will follow. Date Signed: 10/25/2017 02:17 PM Electronically Signed By:Kaylyn Villagomez LCSW Case Management Discharge Plan Note Case Management Discharge Discharge Order Complete? Answers: Yes Patient to Obtain Answers: via Family Medications Transportation Arranged Answers: Family/Friends EMTALA Complete Answers: No Case Management Transport Answers: No Form Complete Faxed Final Orders Answers: Yes Agency/Facility Transfer Answers: Yes Report Printed & Faxed to Receiving Agency Family Notified Answers: Yes Discharge Comments Notes: CM spoke w/ JENNIFER Reyes and DANTE Irwin regarding d/c POC. CM met w/ pt and for dispo planning. Pt and would like to d/c home with HC. plans on getting pt a shower bench and a walker for the time being. would like to use [facility]. [facility] is able to accept. CM provided JENNIFER Reyes w/ phone number to give report. Pt does not currently have a PCP. would like CM to establish pt with a new PCP at [facility]. Pt is scheduled for 10/30 @ 3PM with Dr. Parker. CM inputted appointment into [employer]. CM available for changes. Plan: [facility]; PT, OT, RN Date Signed: 10/26/2017 09:46 AM Electronically Signed By:WESTON Mathew Intervention Information
[2017-10-26] MEDS ORDERED: WARFARIN SODIUM 1 MG TAB PO SCH (16:00)
== END 2017-10-26 12:45 | disposition home health service (06) | DRG 236 ==
LOC: F2W 10:09 → F2N 15:33 → F2W 10-22 12:20 → F2N 10-22 14:27 → F2W 10-25 14:00
PROVIDERS: ADMIT Thoracic Surgery (Cardiothoracic Vascular Surgery); ATTEND Thoracic Surgery (Cardiothoracic Vascular Surgery)
PROC: 02L70CK Occlusion of Left Atrial Appendage with Extraluminal Device, Open Approach (ICD-10-PCS; principal; 2017-10-19 11:45)
PROC: 02B70ZK Excision of Left Atrial Appendage, Open Approach (ICD-10-PCS; principal; 2017-10-19 11:45)
PROC: 02100Z9 Bypass Coronary Artery, One Artery from Left Internal Mammary, Open Approach (ICD-10-PCS; principal; 2017-10-19 11:45)
PROC: 025S0ZZ Destruction of Right Pulmonary Vein, Open Approach (ICD-10-PCS; principal; 2017-10-19 11:45)
PROC: 021109W Bypass Coronary Artery, Two Arteries from Aorta with Autologous Venous Tissue, Open Approach (ICD-10-PCS; principal; 2017-10-19 11:45)
PROC: 06BQ0ZZ Excision of Left Saphenous Vein, Open Approach (ICD-10-PCS; principal; 2017-10-19 11:45)
PROC: 5A1221Z Performance of Cardiac Output, Continuous (ICD-10-PCS; principal; 2017-10-19 11:45)
PROC: 02HK3JZ Insertion of Pacemaker Lead into Right Ventricle, Percutaneous Approach (ICD-10-PCS; 2017-10-23)
PROC: 02H63JZ Insertion of Pacemaker Lead into Right Atrium, Percutaneous Approach (ICD-10-PCS; 2017-10-23)
PROC: 0JH606Z Insertion of Pacemaker, Dual Chamber into Chest Subcutaneous Tissue and Fascia, Open Approach (ICD-10-PCS; 2017-10-23)
DX: I25.110 Atherosclerotic heart disease of native coronary artery with unstable angina pectoris (principal); D62 Acute posthemorrhagic anemia; I49.5 Sick sinus syndrome; I47.2 Ventricular tachycardia; I48.1 Persistent atrial fibrillation; I25.5 Ischemic cardiomyopathy; I51.3 Intracardiac thrombosis, not elsewhere classified; I10 Essential (primary) hypertension; F03.90 Unspecified dementia, unspecified severity, without behavioral disturbance, psychotic disturbance, mood disturbance, and anxiety
CPT/HCPCS: 82947-QW; 97110-GP; 97116-GP; 97162-GP; 97165-GO; 97530-GO; 97530-GP; 97535-GO; C1785; C1898; G8978-GP-CJ; G8978-GP-CK; G8979-GP-CJ; G8980-GP-CJ; G8987-GO-CK; G8988-GO-CI; J0153; J0171; J0282; J0461; J0690; J1265; J1630; J1644; J1815; J2001; J2060; J2150; J2250; J2260; J2270; J2310; J2370; J2440; J2704; J2720; J2930; J3010; J3475; J7060; P9041; Q9967

== ENCOUNTER 2017-10-28 08:44 | Inpatient (IN) | payer OTHER, MEDICARE ==
--- NOTE | 2017-10-28 09:07 | CPEKG ---
Heart Rate: 60 RR Interval: 1000 QRSD Interval: 102 QT Interval: 448 QTC Interval: 448 P [place]: 0 QRS [place]: -8 T Wave [place]: 53 EKG Severity - ABNORMAL ECG - EKG Impression: ATRIAL-PACED COMPLEXES Electronically Signed By: Taco Flores 30-Oct-2017 08:58:21
[2017-10-28 09:20] LABS: PLATELET COUNT 430 10^3/uL (150-400)
--- NOTE | 2017-10-28 09:27 | EDPHY ---
HPI/HX/ROS/PE/MDM Narrative: CHIEF COMPLAINT: Shortness of breath HPI: The patient is an anticoagulated 82 y/o male with hypertension and significant cardiac history arriving with his complaining of shortness of breath and dry mouth. He was admitted at the end of September due to feeling poorly and was diagnosed with atrial fibrillation and had multiple interventional cardiac procedures including Lexiscan and heart catheterization. He ultimately had CABGx3 and left atrial thrombus removal on 10/19/17, 9 days ago, and A/V pacemaker implantation on 10/23/17, 5 days ago. His ICU admission was complicated by delirium and worsening of his dementia. He was discharged home with his on 10/26/17, 2 days ago, despite recommendation to go to cardiac rehab. His reports he was doing well the first few hours home, but has not been sleeping and has become more confused than at baseline. Per , last night he got up several times to urinate and repeated complained of shortness of breath. She describes watching him use his abdominal muscles to breath shallowly and "panicky." She checked his vitals during these episodes and found him hypertensive, but with a normal HR and oxygenation. About an hour prior to arrival here he had a similar episode except he "turned purple" so his brought him to the ED for evaluation. She did not measure his SpO2 at that time. She has also noticed mild increase in swelling to his left lower leg; he had venous grafting on this leg for the CABG. History from patient limited due to dementia/confusion. REVIEW OF SYSTEMS: Aside from elements discussed in the HPI, a comprehensive 10-point review of systems was reviewed and is negative. PMH: Mild dementia, CAD, ischemic cardiomyopathy with VT, atrial fibrillation - Coumadin, CABG x3 10/19/17, A/V pacemaker 10/23/17. 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 Multiple prior records reviewed including admission 10/12/17 and cardiac procedures 10/19/17. PHYSICAL EXAM: General:Patient is alert, in no acute distress. Hypertensive 192/125 ENT:Eyes are normal to inspection. ENT inspection normal. Neck: Normal inspection. Full range of motion. Respiratory:No respiratory distress. Breath sounds normal bilaterally. Cardiovascular: Regular rate and rhythm. Strong peripheral pulses. Normal cap refill. Chest: Sternotomy incision is clean, dry, and intact. Abdomen:The abdomen is nontender to palpation. There are no peritoneal signs. Back: Normal to inspection. No tenderness to palpation. Skin: Normal color. No rash. Warm and dry. Extremities: Left leg incision site is clean, dry, and intact. Otherwise normal appearance. Full range of motion. Neuro: Alert, somewhat confused, nonfocal. ED Course: This is an 82 y/o male with a complex cardiac history including recent CABGx3 9 days ago and A/V pacemaker implantation 7 days ago who presents with shortness of breath and increasing confusion since discharge home 2 days ago. Incisions are clean, dry, and intact. He is confused and unable to contribute much to history, which reports is worse than baseline. Plan for IV, labs, EKG and chest x-ray. The 12 lead EKG was interpreted by myself. Atrial-paced rhythm. See hard copy and/or "tracemaster" electronic copy for interpretation. Troponin and BNP are elevated. Chest x-ray: Interval removal a right IJ central venous catheter since 10/24/17, with persistent cardiomegaly, mild pulmonary venous congestion, and bibasilar pleural-parenchymal consolidation. 1155: Consulted with Dr. De La Garza, patient's cardiothoracic surgeon. He recommends admission. Patient and his agree with this plan. Spoke with hospitalist service. Dr. Bernard accepts admission. - Data Points Imaging Results: Imaging Impressions Chest X-Ray 10/28/17 09:07 Impression: Interval removal a right IJ central venous catheter since 10/24/17, with persistent cardiomegaly, mild pulmonary venous congestion, and bibasilar pleural-parenchymal consolidation. Imaging: I viewed and interpreted images myself Laboratory Results: Laboratory Results 10/28/17 09:10 10/28/17 09:10 10/28/17 10/28/17 10/28/17 09:10 09:10 09:10 WBC 13.35 10^3/uL H 10^3/uL (3.80-9.50) RBC 3.88 10^6/uL L 10^6/uL (4.40-6.38) Hgb 11.5 g/dL L g/dL (13.7-17.5) Hct 35.3 % L % (40.0-51.0) MCV 91.0 fL fL (81.5-99.8) MCH 29.6 pg pg (27.9-34.1) MCHC 32.6 g/dL g/dL (32.4-36.7) RDW 13.6 % % (11.5-15.2) Plt Count 430 10^3/uL H 10^3/uL (150-400) MPV 9.5 fL fL (8.7-11.7) Neut % (Auto) 80.6 % H % (39.3-74.2) Lymph % (Auto) 10.0 % L % (15.0-45.0) [place] % (Auto) 4.9 % % (4.5-13.0) Eos % (Auto) 2.7 % % (0.6-7.6) Baso % (Auto) 0.1 % L % (0.3-1.7) Nucleat RBC Rel Count 0.0 % % (0.0-0.2) Absolute Neuts (auto) 10.74 10^3/uL H 10^3/uL (1.70-6.50) Absolute Lymphs (auto) 1.34 10^3/uL 10^3/uL (1.00-3.00) Absolute Monos (auto) 0.66 10^3/uL 10^3/uL (0.30-0.80) Absolute Eos (auto) 0.36 10^3/uL 10^3/uL (0.03-0.40) Absolute Basos (auto) 0.02 10^3/uL 10^3/uL (0.02-0.10) Absolute Nucleated RBC 0.00 10^3/uL 10^3/uL (0-0.01) Immature Gran % 1.7 % H % (0.0-1.1) Immature Gran # 0.23 10^3/uL H 10^3/uL (0.00-0.10) PT 17.1 SEC H SEC (12.0-15.0) INR 1.38 H (0.83-1.16) APTT 29.7 SEC SEC (23.0-38.0) Sodium 139 mEq/L mEq/L (135-145) Potassium 4.6 mEq/L mEq/L (3.5-5.2) Chloride 102 mEq/L D mEq/L (97-110) Carbon Dioxide 22 mEq/l mEq/l (22-31) Anion Gap 15 mEq/L mEq/L (8-16) BUN 32 mg/dL H mg/dL (7-23) Creatinine 1.1 mg/dL mg/dL (0.7-1.3) Estimated GFR > 60 Glucose 118 mg/dL H mg/dL (70-100) Calcium 8.1 mg/dL L mg/dL (8.5-10.4) Troponin I 0.756 ng/mL H ng/mL (0.000-0.034) NT-Pro-B Natriuret Pep 7500 pg/mL H pg/mL (0-450) General Time Seen by Provider: 10/28/17 09:01 Initial Vital Signs: Initial Vital Signs Temperature (C) 36.7 C 10/28/17 08:46 Heart Rate 62 10/28/17 08:46 Respiratory Rate 18 10/28/17 08:46 Blood Pressure 192/125 H 10/28/17 08:46 O2 Sat (%) 95 10/28/17 08:46 O2 Delivery Mode Room Air Allergies/Adverse Reactions: hydrochlorothiazide Allergy (Verified 10/28/17 08:46) Other-Enter Comments cardiac technologist patches Allergy (Uncoded 10/18/17 17:34) Itching Home Medications: Medication Instructions Recorded Oxymetazoline HCl [Afrin Nasal 2 spray [place] DAILY PRN 10/18/17 [place]] Acetaminophen [Tylenol 325mg (*)] 325 - 650 mg PO Q4HRS PRN tab 10/26/17 Aspirin [Aspirin 81mg (*)] 81 mg PO DAILY tab.chew 10/26/17 Metoprolol Tartrate [Lopressor 25 37.5 mg PO BID #0 tab 10/26/17 mg (*)] Warfarin Sodium [Coumadin 1MG (*)] 1 mg PO DAILY AT 4PM #60 tab 10/26/17 traMADol [Ultram 50 mg (*)] 25 mg PO Q6HRS PRN #20 tab 10/26/17 Departure - Departure Disposition: [facility] Acute Clinical Impression: Confusion, S/P CABG x 3 Dyspnea Qualifiers: Dyspnea type: shortness of breath Qualified Code(s): R06.02 - Shortness of breath; R06.00 - Dyspnea, unspecified; R06.01 - Orthopnea Condition: Fair Report Scribed for: Moreno Shay Report Scribed by: Harika Horvath Date of Report: 10/28/17 Time of Report: 09:58 Physician Review and Approval Statement: Portions of this note were transcribed by an ED scribe. I personally performed the history, physical exam, and medical decision making; and confirm the accuracy of the information in the transcribed note.
[2017-10-28 09:32] LABS: INR 1.38 (0.83-1.16); PROTIME(PATIENT) 17.1 SEC (12.0-15.0)
[2017-10-28] MEDS ORDERED: hydrALAZINE 25 MG TAB PO ONE (14:18)
[2017-10-28] MEDS ORDERED: ACETAMINOPHEN 325 MG TAB PO PRN (14:19)
[2017-10-28] MEDS ORDERED: ONDANSETRON 4 MG/2 ML VIAL IVP PRN (14:19)
[2017-10-28] MEDS ORDERED: ONDANSETRON DISINTEGRATING 4 MG TAB PO PRN (14:19)
[2017-10-28] MEDS ORDERED: traMADol 50 MG TAB PO PRN (14:20)
[2017-10-28] MEDS ORDERED: hydrALAZINE 25 MG TAB PO PRN (14:34)
[2017-10-28] MEDS ORDERED: LISINOPRIL 2.5 MG TAB PO SCH (14:45)
[2017-10-28] MEDS ORDERED: LABETALOL HCL 5 MG/ML 20 ML MDV IVP ONE (14:47)
[2017-10-28] MEDS ORDERED: FUROSEMIDE 20 MG/2 ML VIAL IVP ONE (14:48)
[2017-10-28] MEDS ORDERED: TEMAZEPAM 15 MG CAP PO PRN (14:48)
[2017-10-28] MEDS ORDERED: WARFARIN SODIUM 2 MG TAB PO ONE (16:00)
--- NOTE | 2017-10-28 16:15 | GHP ---
[f rep st] HISTORY AND PHYSICAL DATE OF ADMISSION: 10/28/2017 CHIEF COMPLAINT: Shortness of breath. HISTORY OF PRESENT ILLNESS: The patient is an 82-year-old male with a history of coronary artery disease who recently underwent 3-vessel CABG and discharged from the hospital on October 26. Since discharging home, he has developed worsening shortness of breath. He endorses orthopnea. He denies chest pain. His notes that she sees him trying to catch his breath while lying in bed at night. He does have a history of dementia and is overall a poor historian. In addition, he has known ischemic cardiomyopathy with history of ventricular tachycardia and previously had a LifeVest. This was discontinued after his ejection fraction improved to 65% postoperatively. In addition, he had a left atrial thrombus removed during his recent surgery. He has known chronic atrial fibrillation and is status post Stanley Maze procedure with left atrial appendage ligation. He is on chronic anticoagulation with Coumadin; however, he presents with a subtherapeutic INR. He also reports increased lower extremity edema, left greater than right. He denies chest pressure. They are unsure if he has had any weight gain. In the emergency department his blood pressure on arrival was 192/125. This was not treated. Upon arrival to the progressive care unit his blood pressure is 181/120. His troponin is slightly elevated and his NT-proBNP is up to 7500 from 3750 last month. He was admitted to the hospital for further management. PAST MEDICAL HISTORY: 1. Coronary artery disease, status post 3-vessel CABG October 19, 2017. 2. Ischemic cardiomyopathy. Recent ejection fraction of 65%. 3. History of ventricular tachycardia with prior use of a LifeVest recently discontinued due to improved ejection fraction. 4. Chronic atrial fibrillation, status post Stanley Maze procedure with left atrial appendage ligation. 5. History of left atrial thrombus, status post removal during his CABG surgery. 6. Postoperative bradycardia, status post pacemaker placement. 7. Chronic anticoagulation with a subtherapeutic INR. 8. Hypertension. 9. Dementia. MEDICATIONS: Please see [email or web address] for complete updated outpatient medication list. ALLERGIES: He has no known drug allergies. FAMILY HISTORY: Both parents are . SOCIAL HISTORY: The patient is . His is present at the bedside. He denies tobacco use. He does drink occasional alcohol. PAST SURGICAL HISTORY: 1. Coronary artery bypass graft x3 with removal of a left atrial thrombus and Stanley Maze procedure with left atrial appendage ligation. 2. Pacemaker placement October 23, 2017. REVIEW OF SYSTEMS: A 10-point review of systems was performed and is negative except as per HPI. OBJECTIVE: VITAL SIGNS: Temperature is 36.7, blood pressure 181/120, heart rate 60, respiratory rate 16. He is 94% on room air. GENERAL: The patient is awake, alert, and oriented to person only. HEENT: Head is atraumatic, normocephalic. Pupils equal, round, react to light. Extraocular movements intact. Oropharynx is clear. Mucous membranes are dry. NECK: Supple. He has elevated jugular venous pressure. HEART: Has a regular rate and rhythm. Sternal chest wall incision is clean, dry and intact. LUNGS: Reveal bibasilar crackles, otherwise clear to auscultation. ABDOMEN: Soft, nondistended, nontender. Normoactive bowel sounds. EXTREMITIES: Reveal left greater than right pitting edema. His left lower extremity incision from his vein graft is clean, dry, and intact. NEUROLOGIC: Patient is demented and confused but neurologic exam is otherwise nonfocal. LABORATORY DATA: CBC reveals a white blood cell count of 13.3, hemoglobin 11.5 , hematocrit 35.3, platelets are 430. INR is 1.38. Basic metabolic panel shows normal electrolytes, BUN of 32 which is down from 51, glucose 118, troponin 0.756. NT-proBNP is 7500. Urinalysis is negative. Chest x-ray performed in the emergency department shows cardiomegaly with mild pulmonary venous congestion and chronic bibasilar pleural-parenchymal consolidation, relatively unchanged. EKG shows an atrial-paced rhythm with no ST-segment or T-wave changes concerning for acute ischemia. ASSESSMENT AND PLAN: The patient is an 82-year-old male with a history of coronary artery disease who recently underwent coronary artery bypass graft surgery, returns to the hospital 2 days after discharge with shortness of breath and was found to be hypertensive. 1. Hypertensive urgency. I suspect his shortness of breath is a symptom of his elevated blood pressure. Give IV labetalol now to begin to lower his blood pressure and start low-dose lisinopril in addition to continuing his oral metoprolol. Will provide p.r.n. hydralazine and labetalol as needed. He has no new neurologic deficit suggestive of stroke. He appears slightly volume up and with his elevated BNP, jugular venous distention, and orthopnea, will give a dose of Lasix and gauge effect. Repeat limited echo to evaluate LV function. Follow daily weights (wt up 2.5 kg since d/c) and his I's and O's. 2. Coronary artery disease status post 3-vessel coronary artery bypass graft. He is postoperative day #9 and is chest pain free. We will continue his aspirin and beta jazmin. His recent LDL was 93 though he is not on a statin. Will check his LFTs and if normal, consider initiation of statin therapy. 3. Chronic atrial fibrillation, status post Stanley Maze procedure with left atrial appendage ligation as well as removal of a left atrial thrombus. He is currently in sinus rhythm, rate controlled, on metoprolol, which will be continued. He is subtherapeutic on his Coumadin with an INR of 1.38. Will provide prophylactic Lovenox dose until his INR is greater than 1.8 and have asked Pharmacy to dose Coumadin. 4. Elevated troponin. This is likely secondary to his recent coronary artery bypass graft surgery. He is chest pain free. Will repeat his troponin this afternoon and I have consulted Cardiology for their opinion as well. 5. Left lower extremity edema. This is likely related to his recent vein harvesting. Will check an ultrasound to rule out deep venous thrombosis with sub-therapeutic INR. 6. Leukocytosis. He is afebrile and has no localizing infectious symptoms. Urinalysis is negative. Chest x-ray is negative for pneumonia. This may be a stress response. Will send blood cultures and observe off antibiotics. 7. Dementia. It sounds like his mentation is slightly worse since his coronary artery bypass graft surgery. In addition he has not slept for several days. Will provide Restoril at bedtime. 8. Code status: Patient is a full code. 9. Deep venous thrombosis prophylaxis. As above will give Lovenox until his INR is greater than 1.8. 10. Disposition: The patient is admitted to inpatient status. I anticipate greater than 48 hours hospitalization for ongoing management of his hypertensive urgency and shortness of breath. PT and OT evaluations are requested. I anticipate he will likely require a [facility] facility and a case management consult is also requested. /[id number]/MODL MTDD
--- NOTE | 2017-10-28 16:26 | ASMTCMCOM ---
CM Note CM Note Notes: Patient presents to the ER with c/o SOB, s/p recent OHS and IP discharge from this hospital on 10/25/17. [facility] opened yesterday and I spoke with JENNIFER Lee who confirmed she was aware of patients ER return. Patient's Pushpa acknowledges that recommendation at discharge on 10/25/17 was for patient to go to SNF prior to returning home. She is concerned now that this may be a good idea. I have contacted Breanna at [facility] in [place] and sent a referral for review per family request. Breanna at [facility] has responded to my referral and confirms that patient is approved for admission. I have informed her that patient has been admitted for observation and CM will follow with discharge planning. Rosa at [facility] updated re patient's admission and potential plan for SNF at D/C. Date Signed: 10/28/2017 01:14 PM Electronically Signed By:Joan Rios RN
--- NOTE | 2017-10-28 16:42 | PDMN ---
Medical Necessity Medical necessity: C/M review: est. > 2 MN for acute hypertensive urgency, shortness of breath, elevated troponin, leukocytosis, left lower extremity edema likely related to recent vein harvesting, requiring IV Labetolol, IV Lasix , planned Cardiology consult, Case management consult, echocardiogram, Doppler US of left lower extremity, ongoing antihypertensive medication regimen adjustment, cardiac monitoring, pulse oximetry, acute inpt PT/OT, comorbid CAD S /P 3 vessel CABG, Stanley Maze procedure with left atrial appendage ligation as well as removal of a left atrial thrombus 10/19/2017 (hospitalization 10/19/2017 - 10/26/2017), chronic atrial fibrillation, dementia, history of ischemic cardiomyopathy, ventricular tachycardia with prior use of a LifeVest recently discontinued due to improved ejection fraction, postop bradycardia S/P pacemaker placement, chronic anticoagulation with a subtheraputic INR, hypertension per H/P.
[2017-10-28] MEDS: ENOXAPARIN 40 MG/0.4 ML SYR SC SCH (17:57)
[2017-10-28] MEDS: LISINOPRIL 2.5 MG TAB PO SCH (17:58)
[2017-10-28] MEDS ORDERED: LABETALOL HCL 5 MG/ML 20 ML MDV IVP PRN (18:23)
[2017-10-28] MEDS: METOPROLOL TARTRATE 25 MG TAB PO SCH (22:56)
[2017-10-29 05:14] LABS: PLATELET COUNT 400 10^3/uL (150-400)
[2017-10-29 05:19] LABS: INR 1.41 (0.83-1.16); PROTIME(PATIENT) 17.4 SEC (12.0-15.0)
[2017-10-29] MEDS ORDERED: ENOXAPARIN 40 MG/0.4 ML SYR SC SCH (09:00)
--- NOTE | 2017-10-29 09:02 | GCON ---
[f rep st] CONSULTATION CARDIAC CONSULTATION DATE OF CONSULTATION: 10/29/2017 CHIEF COMPLAINT: Hypertension and shortness of breath. HISTORY OF PRESENT ILLNESS: This is an 82-year-old gentleman, who was just discharged from the [facility] on October 26. He had apparent ischemic cardiomyopathy, undergoing 3-vessel coronary bypass grafti ng, as well as left atrial ablation, Maze procedure, and permanent pacemaker placement. He was disch arged home. Since being home, he has had some increasing shortness of breath. He was brought back t o the emergency room last night, and his blood pressure was slightly elevated with an increased BNP f rom his baseline. He was admitted. His blood pressure is under better control. Today, he is feelin g well, up in a chair without oxygen. He appears in a normal sinus rhythm, with some probable paced rhythm. I cannot see atrial fibrillation. I spoke to Dr. De La Garza, who has also seen him. Apparently, he has a known right pleural effusion, which is to be tapped in the next week or so. Lisinopril was started last night. He was given labetalol and hydralazine on a p.r.n. basis. He is comfortable. He has indeterminate troponins, but no ischemic changes and no ischemic ST situation. The patient is alert and oriented at this time. After speaking with Dr. De La Garza, I suspect we will try to control hi s blood pressure more aggressively prior to discharge, this time maybe to long term facility fo r some more intensive rehab than he could obtain at home. I will obtain a limited echocardiogram to see if there is any improvement in the EF. At this point, his O's are greater than I's by 800 cc. PAST MEDICAL HISTORY: Includes coronary artery disease, ischemic cardiomyopathy, and history of vent ricular tachycardia, status post pacemaker placement. The patient had a Stanley Maze and a left atrial l igation. He is on chronic Coumadin. ALLERGIES: No known allergies. FAMILY HISTORY: Noncontributory. SOCIAL HISTORY: He lives with his . She is not here at the time when I am speaking to him. REVIEW OF SYSTEMS: Negative except for the HPI, where he went home and had some increasing shortness of breath. He is not having any specific chest pain, palpitations, or syncope. ASSESSMENT AND PLAN: 1. Hypertension. The patient has been controlled with medicine at this time. He is hemodynamically stable, feeling well, and oxygen is over 90% on room air. Lisinopril has been added. He has p.r.n. meds to use if need be. He was also seen by Dr. De La Garza, who concurs with the treatment options. 2. Ischemic cardiomyopathy. The patient will have a limited echo performed just to see if there has been improvement from the preoperative findings, although today his JVP is flat. He is not having a ny rales, wheezes, or peripheral edema. 3. History of atrial fibrillation, status post Stanley Maze at the time of surgery with left atrial liga tion, on chronic Coumadin. He was bradycardic apparently postop. He has a pacemaker in place. He a ppears to be in a normal sinus rhythm and a paced rhythm at this time. 4. Disposition. Upon discharge at this time, after discussing with Dr. De La Garza, most likely, a short- term long term facility may be reasonable for him to get through the immediate postoperative pe riod in [place]. This will be determined by his clinical course. /[id number]/MODL
[2017-10-29] MEDS: METOPROLOL TARTRATE 25 MG TAB PO SCH ×2 (09:31→21:32)
[2017-10-29] MEDS: ASPIRIN 81 MG CHEWABLE TAB PO SCH (09:31)
[2017-10-29] MEDS: LISINOPRIL 2.5 MG TAB PO SCH (09:32)
[2017-10-29] MEDS: ENOXAPARIN 40 MG/0.4 ML SYR SC SCH (09:33)
--- NOTE | 2017-10-29 11:37 | HOSPPROG ---
Hospitalist Progress Note Assessment/Plan: Hypertensive urgency - presented with BP 190's/120's and SOB. BP slowly lowered over past 24 hrs and symptoms improving. -cont metoprolol -added low dose lisinopril, up-titrate as indicated -prn hydral, labetalol CAD s/p 3v CABG POD #10 - stable, Dr. De La Garza aware. -cont ASA, BB -statin added for recent LDL 93 -cardiology input appreciated Ischemic cardiomyopathy - EF 65% post-operatively. Pt appeared volume up on arrival and wt up 2.5 kg since discharge. Still with elevated JVP today though LE edema improved. -repeat Lasix -cont to follow I&O's, daily weights -limited echo pending Elevated troponin - trending down, likely 2/2 recent CABG. Pt is chest pain free, non-ischemic EKG. Chronic A fib - s/p Stanley-Maze and LOUIE ligation, recent pacemaker for post-op bradycardia -rate controlled on Metoprolol, cont home dose -INR sub-therapeutic, pharmacy dosing coumadin Dementia - likely had hypertensive encephalopathy on arrival, mentation now back to baseline Insomnia - slept well with Restoril last night, but a bit sleepy today. -d/c restoril, trial trazodone Full code DVT PPLX - Lovenox until INR >1.6 Dispo - cont inpt, pt and refused SNF at hospital d/c 10/26, now agreeable to SNF. CM involved. Cont PT/OT. Subjective: Pt feels better. Mentation improved, back to baseline per . Still a little orthopneic and SOB at times. No CP. LE edema improved. Taking some po. Slept well, a bit sleepy today after receiving restoril last night. Objective: Vital Signs Temp Pulse Resp BP Pulse Ox 36.6 C 63 12 141/91 H 93 10/29/17 07:24 10/29/17 09:31 10/29/17 07:24 10/29/17 09:31 10/29/17 07:24 Laboratory Results 10/29/17 04:36 10/29/17 04:36 10/28/17 10/29/17 10/30/17 05:59 05:59 05:59 Intake Total 680 Output Total 1350 Balance -670 PT 17.4 SEC (12.0-15.0) H 10/29/17 04:36 INR 1.41 (0.83-1.16) H 10/29/17 04:36 - Physical Exam Constitutional: no apparent distress Eyes: PERRL Ears, Nose, Mouth, Throat: moist mucous membranes Cardiovascular: regular rate and rhythym, JVD Respiratory: no respiratory distress, other (reduced breath sounds at bases with faint bibasilar crackles) Gastrointestinal: normoactive bowel sounds, soft, non-tender abdomen Skin: warm Musculoskeletal: full muscle strength Neurologic: AAOx3 Psychiatric: interacting appropriately, poor memory ICD10 Worksheet Patient Problems: Problems Problem Status Onset Confusion Acute Dyspnea Acute S/P CABG x 3 Acute Congestive heart failure Acute Primary osteoarthritis of right knee Acute S/P ablation of atrial fibrillation Acute Ventricular tachycardia Acute chronic disease mgmt/transitional care Acute
[2017-10-29] MEDS ORDERED: FUROSEMIDE 20 MG/2 ML VIAL IVP ONE (11:45)
[2017-10-29] MEDS: ATORVASTATIN CALCIUM 20 MG TAB PO SCH (12:21)
--- NOTE | 2017-10-29 14:45 | ASMTCMCOM ---
CM Note CM Note Notes: Chart reviewed POD 10 s/p OHS. Failed at home. Now to dc to inpatient SNF when medically cleared for discharge. [facility] referral made. CM to follow. Plan: To SNF Date Signed: 10/29/2017 02:44 PM Electronically Signed By:Shelley Mayer RN
[2017-10-29] MEDS ORDERED: WARFARIN SODIUM 2.5 MG TAB PO ONE (16:00)
[2017-10-29] MEDS: traZODone 50 MG TAB PO SCH (21:32)
[2017-10-30 08:55] LABS: INR 1.48 (0.83-1.16); PROTIME(PATIENT) 18.1 SEC (12.0-15.0)
[2017-10-30] MEDS: ATORVASTATIN CALCIUM 20 MG TAB PO SCH (10:00)
--- NOTE | 2017-10-30 10:13 | HOSPPROG ---
Hospitalist Progress Note Assessment/Plan: #Hypotension: Lisinopril and Lasix were new yesterday. Hold these. Gave 250cc NS with improvement #Ischemic CDM: hold BP meds this morning with hypotension. EF down to 45% from 55% on today's echo -resume BB once BP allows. Will need low-dose lasix at DC #Bilateral pleural effusions: s/p right thoracentesis today #CAD: tadymb8H-MBPT. Left atrial appendage thrombus removed. ASA, statin, BB #Indeterminate trop: down from CABG. No chest pain #SSS-pacer placed prior to recent DC #Atrial fibrillation: s/p MAZE procedure. Coumadin #Depressed mood: very active at baseline and down with recent surgery, readmission to hospital. Consider anti-depressant if not improving #Deconditioning: will go to SNF at DC #Diet: cardiac #Disp: cont inpatient for BP monitoring, telemetry. Will DC in next 1-2 days Subjective: dizzy, "something feels off" Objective: Vital Signs Temp Pulse Resp BP Pulse Ox 36.1 C 64 18 82/56 L 90 L 10/30/17 08:00 10/30/17 10:05 10/30/17 08:00 10/30/17 10:05 10/30/17 08:00 Laboratory Results 10/30/17 08:30 10/30/17 03:48 10/29/17 10/30/17 10/31/17 05:59 05:59 05:59 Intake Total 680 600 120 Output Total 1350 1425 Balance -670 -825 120 PT 18.1 SEC (12.0-15.0) H 10/30/17 08:30 INR 1.48 (0.83-1.16) H 10/30/17 08:30 - Time Spent With Patient Time Spent with Patient: greater than 35 minutes Time Spent with Patient: Greater than 35 minutes spent on this patients care, greater than 50% of time spent counseling, educating, and coordinating care regarding the above mentioned plan. - Physical Exam Constitutional: no apparent distress Eyes: PERRL Ears, Nose, Mouth, Throat: moist mucous membranes Cardiovascular: regular rate and rhythym, other (pacer in place without signs of infection. Sternal incision CDI) Respiratory: other (decreased BS at BL bases) Gastrointestinal: normoactive bowel sounds Musculoskeletal: full muscle strength Neurologic: AAOx3, CN II-XII Intact Psychiatric: flat affect (mood is down) ICD10 Worksheet Patient Problems: Problems Problem Status Onset Confusion Acute Dyspnea Acute S/P CABG x 3 Acute Congestive heart failure Acute Primary osteoarthritis of right knee Acute S/P ablation of atrial fibrillation Acute Ventricular tachycardia Acute chronic disease mgmt/transitional care Acute
[2017-10-30] MEDS: ASPIRIN 81 MG CHEWABLE TAB PO SCH ×2 (10:16→16:24)
[2017-10-30] MEDS: LISINOPRIL 2.5 MG TAB PO SCH (10:17)
[2017-10-30] MEDS: ENOXAPARIN 40 MG/0.4 ML SYR SC SCH ×2 (10:17→16:25)
[2017-10-30] MEDS: METOPROLOL TARTRATE 25 MG TAB PO SCH ×2 (10:17→20:12)
--- NOTE | 2017-10-30 14:02 | ASMTCMCOM ---
CM Note CM Note Notes: 10/30/2017 Case Management Note Met w/Natalie from [facility] today. [facility] accepted pt. Case Management d/c poc[facility]. Case Management to follow. Date Signed: 10/30/2017 02:01 PM Electronically Signed By:Alley Woodard RN
--- NOTE | 2017-10-30 14:33 | PDCARPN ---
Cardiology Progress Note Chief Complaint: SOB Assessment/Plan: Assessment: Panfilo is a 82 y/o M with a history of CAD, ICMP with EF of 35%, VT, andatrial fibrillation with recent 3v CABG, left atrial appendage thrombus removal, and MAZE. He developed SSS and a DDDR pacer was placed prior to d/c. He was d/c home on 10/26 but complained of SOB which progressed over 2 days and therefore he presented back to the hospital. He also has a known pleural effusion with plans for thoracentesis today. His trop is trending down. BNP increased from 3750 to 7500. A echo showed a decrease in his EF from 65% to 42%. He was hypertensive on admission and therefore low dose Lisinopril was added. He became hypotensive this AM and his hypertensive meds are on hold. Plan: 1. pleural effusion with SOB. Plan for thoracentesis today. 2. Cardiomyopathy with EF of 42% by his most recent echo. He will like need to be d/c home on low dose lasix. Metoprolol and Lisinopril on hold secondary to hypotension. 3. Atrial fibrillation. Likely in NSR. Coumadin on hold for thoracentesis. 4. CAD s/p CABG- He denies any CP and trops are only minimally elevated. Continue Lipitor. Will resume Metoprolol when BP allows. 10/30/17 16:02 Subjective: c/o SOB but denies chest discomfort. He is discouraged with his progress Reviewed/Discussed With: hospitalist Objective: Vital Signs (8 Hrs) Temp Pulse Resp BP Pulse Ox 10/30/17 13:16 67 97/62 L 10/30/17 13:05 60 93/55 L 10/30/17 13:01 63 87/57 L 10/30/17 12:56 63 86/52 L 10/30/17 11:48 36.6 C 62 18 93/56 L 92 10/30/17 10:05 64 82/56 L 10/30/17 08:00 36.1 C 62 18 96/65 L 90 L Intake/Output (24 Hrs) 10/29/17 10/30/17 10/31/17 05:59 05:59 05:59 Intake Total 680 600 120 Output Total 1350 1425 Balance -670 -825 120 Intake: Oral (ml) 680 600 120 Output: Urine (ml) 1350 1425 Toilet 1350 1225 Urinal 200 Other: Weight 74.7 kg 74.2 kg Number of Voids Incontinence 1 Toilet 1 Number of Stools Toilet 1 Result Diagrams: 10/30/17 08:30 10/30/17 03:48 Cardiac Labs: Cardiac Lab Results (72 Hrs) 10/28/17 15:41 Troponin I 0.634 H - Physical Exam Constitutional: no apparent distress Cardiovascular: regular rate and rhythm Respiratory: other (decreased breath sounds at the bilateral bases) Gastrointestinal: no tenderness Skin: other (mild edema bilaterally) ICD10 Worksheet Patient Problems: Problems Problem Status Onset Confusion Acute Dyspnea Acute S/P CABG x 3 Acute Congestive heart failure Acute Primary osteoarthritis of right knee Acute S/P ablation of atrial fibrillation Acute Ventricular tachycardia Acute chronic disease mgmt/transitional care Acute
[2017-10-30] MEDS ORDERED: LIDOCAINE 1% 300 MG/30 ML SDV ONE (14:39)
[2017-10-30] MEDS ORDERED: WARFARIN SODIUM 5 MG TAB PO ONE (16:00)
[2017-10-30] MEDS: traZODone 50 MG TAB PO SCH (20:12)
[2017-10-31] MEDS: ASPIRIN 81 MG CHEWABLE TAB PO SCH (08:42)
[2017-10-31] MEDS: ENOXAPARIN 40 MG/0.4 ML SYR SC SCH ×2 (08:42→08:55)
[2017-10-31] MEDS: ATORVASTATIN CALCIUM 20 MG TAB PO SCH (08:42)
[2017-10-31] MEDS: METOPROLOL TARTRATE 25 MG TAB PO SCH ×2 (08:43→20:44)
[2017-10-31 13:01] LABS: INR 1.62 (0.83-1.16); PROTIME(PATIENT) 19.4 SEC (12.0-15.0)
--- NOTE | 2017-10-31 15:58 | PDCARPN ---
Cardiology Progress Note Chief Complaint: Increased shortness of breath, lower extremity swelling. Assessment/Plan: Assessment: The patient is an 82-year-old male with a history of coronary artery disease that recently underwent three-vessel CABG. He was discharged from the hospital October 26. During his recent surgery he had a left atrial thrombus removed. He had postoperative SSS and had a pacemaker placed. He has known atrial fibrillation s/p Stanley Maze procedure with left atrial appendage ligation. He is on chronic anticoagulation with Coumadin. He has known ischemic cardiomyopathy with a history of ventricular tachycardia and previously had LifeVest. Since his discharge date 10/26, he has developed worsening shortness of breath, lower extremity swelling (left greater than right). He was readmitted 10/28/17 with hypertensive crisis. His blood pressure in the ED was 192/125. His troponin was elevated and his NT-proBNP is elevated from 3750 last month to 7500. Plan: Panfilo was found to have PE post CABG. He had a right thoracentesis performed and 1.5L of moderately serosanguineous fluid was drained. He was given Lisinopril and Lasix yesterday and became hypotensive. His BP medications were held. His Metoprolol was decreased to 12.5 mg BID today. He had a limited echocardiogram to see if there has been improvement from the perioperative findings. His EF is down from 55% to 45% on yesterday's echocardiogram. The patient is on chronic anticoagulation with Coumadin, this was increased to 5mg today. We will continue to monitor his blood pressure and edema. 10/31/17 15:49 11/01/17 15:41 I agree that the patient should be discharged to [facility] today if possible. Reviewed/Discussed With: hospitalist, multidisciplinary team Objective: Vital Signs (8 Hrs) Temp Pulse Resp BP Pulse Ox 10/31/17 12:00 36.7 C 63 19 95/58 L 93 10/31/17 11:05 72 93 Intake/Output (24 Hrs) 10/30/17 10/31/17 11/01/17 05:59 05:59 05:59 Intake Total 600 870 Output Total 1425 350 600 Balance -825 520 -600 Intake: Oral (ml) 600 870 IV Intake (ml) 0 Output: Urine (ml) 1425 350 600 Toilet 1225 350 Urinal 200 600 Other: Weight 74.2 kg 74 kg Intake Quantity Yes Sufficient Number of Voids Urinal 1 Number of Stools Toilet 1 Urinal 0 Result Diagrams: 10/30/17 08:30 11/01/17 04:26 Cardiac Labs: Cardiac Lab Results (72 Hrs) 10/28/17 15:41 Troponin I 0.634 H - Physical Exam Eyes: PERRL Ears, Nose, Mouth, Throat: moist mucous membranes Cardiovascular: regular rate and rhythm Respiratory: other (Decreased breath sounds at bilateral bases) Gastrointestinal: normoactive bowel sounds Genitourinary: no suprapubic tenderness Skin: no rashes Neurologic: AAOx3 Psychiatric: flat affect ICD10 Worksheet Patient Problems: Problems Problem Status Onset Confusion Acute Dyspnea Acute S/P CABG x 3 Acute Congestive heart failure Acute Primary osteoarthritis of right knee Acute S/P ablation of atrial fibrillation Acute Ventricular tachycardia Acute chronic disease mgmt/transitional care Acute
[2017-10-31] MEDS ORDERED: WARFARIN SODIUM 5 MG TAB PO ONE (16:00)
--- NOTE | 2017-10-31 16:02 | HOSPPROG ---
Hospitalist Progress Note Assessment/Plan: #Hypotension: due Lisinopril and Lasix. #Ischemic CDM: -decrease Metoprolol to 12.5mg BID, add low-dose oral Lasix #Bilateral pleural effusions/dyspnea: not requiring oxygen. Right thoracentesis done yesterday #CAD: recent 3V-CABG. Left atrial appendage thrombus removed. ASA, statin, BB #Indeterminate trop: down from CABG. No chest pain #SSS-pacer placed prior to recent DC #Atrial fibrillation: s/p MAZE procedure. Coumadin increased to 5mg today #Depressed mood: discussed with patient and and agree to start Lexapro #Cognitive impairment: per , has had intermittent memory loss. Was confused when Dr. Armenta visited. Likely waxing/waning -good sleep hygiene, add melatonin #Deconditioning: will go to SNF at DC #Diet: cardiac #Disp: cont inpatient for BP monitoring, telemetry. If tolerates Lasix, will DC to [facility] tomorrow Subjective: less shortness of breath Objective: Vital Signs Temp Pulse Resp BP Pulse Ox 36.7 C 63 19 95/58 L 93 10/31/17 12:00 10/31/17 12:00 10/31/17 12:00 10/31/17 12:00 10/31/17 12:00 Laboratory Results 10/30/17 08:30 10/31/17 04:02 10/30/17 10/31/17 11/01/17 05:59 05:59 05:59 Intake Total 600 870 Output Total 1425 350 600 Balance -825 520 -600 PT 19.4 SEC (12.0-15.0) H 10/31/17 12:45 INR 1.62 (0.83-1.16) H 10/31/17 12:45 - Time Spent With Patient Time Spent with Patient: greater than 35 minutes Time Spent with Patient: Greater than 35 minutes spent on this patients care, greater than 50% of time spent counseling, educating, and coordinating care regarding the above mentioned plan. ICD10 Worksheet Patient Problems: Problems Problem Status Onset Confusion Acute Dyspnea Acute S/P CABG x 3 Acute Congestive heart failure Acute Primary osteoarthritis of right knee Acute S/P ablation of atrial fibrillation Acute Ventricular tachycardia Acute chronic disease mgmt/transitional care Acute
[2017-10-31] MEDS: FUROSEMIDE 20 MG TAB PO SCH (16:29)
[2017-10-31] MEDS: traZODone 50 MG TAB PO SCH (20:45)
[2017-10-31] MEDS: MELATONIN 3 MG TAB PO SCH (20:45)
[2017-10-31] MEDS ORDERED: ESCITALOPRAM OXALATE 10 MG TAB PO SCH (21:00)
[2017-11-01 04:58] LABS: INR 1.5 (0.83-1.16); PROTIME(PATIENT) 18.3 SEC (12.0-15.0)
[2017-11-01] MEDS: ENOXAPARIN 40 MG/0.4 ML SYR SC SCH (08:48)
[2017-11-01] MEDS: METOPROLOL TARTRATE 25 MG TAB PO SCH (08:48)
[2017-11-01] MEDS: ATORVASTATIN CALCIUM 20 MG TAB PO SCH (08:49)
[2017-11-01] MEDS: FUROSEMIDE 20 MG TAB PO SCH (08:49)
[2017-11-01] MEDS: ASPIRIN 81 MG CHEWABLE TAB PO SCH (08:49)
--- NOTE | 2017-11-01 11:28 | HOSPPROG ---
Hospitalist Progress Note Assessment/Plan: #Hypotension: #Ischemic CDM: -decrease Metoprolol to 12.5mg BID, add low-dose oral Lasix. Did not tolerated ROSALIE-I due to hypotension #Bilateral pleural effusions/dyspnea: not requiring oxygen. Right thoracentesis 10/30. Put out -1L with low-dose lasix #CAD: recent 3V-CABG. Left atrial appendage thrombus removed. ASA, statin, BB #Indeterminate trop: down from CABG. No chest pain #SSS-pacer placed prior to recent DC #Atrial fibrillation: s/p MAZE procedure. Coumadin increased to 5mg today #Depressed mood: discussed with patient and and agree to start Lexapro #Cognitive impairment: per , has had intermittent memory loss. Avoid centrally-acting meds -good sleep hygiene, add melatonin #Hypertensive urgency: at admission, now resolved. #Deconditioning: will go to SNF at DC #Diet: cardiac #Disp: cont inpatient for BP monitoring, telemetry. Subjective: tired this morning. Did receive a dose of trazodone last night Objective: Vital Signs Temp Pulse Resp BP Pulse Ox 36.6 C 63 10 L 96/60 L 94 11/01/17 11:12 11/01/17 11:12 11/01/17 11:12 11/01/17 11:12 11/01/17 11:12 Laboratory Results 10/30/17 08:30 11/01/17 04:26 10/31/17 11/01/17 11/02/17 05:59 05:59 05:59 Intake Total 870 780 Output Total 350 1780 Balance 520 -1000 PT 18.3 SEC (12.0-15.0) H 11/01/17 04:26 INR 1.50 (0.83-1.16) H 11/01/17 04:26 - Time Spent With Patient Time Spent with Patient: greater than 35 minutes Time Spent with Patient: Greater than 35 minutes spent on this patients care, greater than 50% of time spent counseling, educating, and coordinating care regarding the above mentioned plan. - Physical Exam Constitutional: no apparent distress Eyes: PERRL Ears, Nose, Mouth, Throat: moist mucous membranes Cardiovascular: regular rate and rhythym, edema (+2 left leg to knee, +1 on right) Respiratory: other (decreased BS left base) Gastrointestinal: normoactive bowel sounds Genitourinary: no bladder fullness Skin: warm Musculoskeletal: full muscle strength Neurologic: CN II-XII Intact Psychiatric: interacting appropriately ICD10 Worksheet Patient Problems: Problems Problem Status Onset Confusion Acute Congestive heart failure Acute Dyspnea Acute Primary osteoarthritis of right knee Acute S/P CABG x 3 Acute S/P ablation of atrial fibrillation Acute Ventricular tachycardia Acute chronic disease mgmt/transitional care Acute
[2017-11-01] MEDS ORDERED: FUROSEMIDE 20 MG TAB PO SCH (15:00)
[2017-11-01] MEDS ORDERED: WARFARIN SODIUM 7.5 MG TAB PO ONE (16:00)
--- NOTE | 2017-11-01 16:09 | PDIAF ---
- Diagnosis Diagnosis: hypertension Code Status: Full Code - Medication Management Discharge Medications: Medications to Continue on Transfer Oxymetazoline HCl [Afrin Nasal [place]] 2 spray EACHNARE DAILY PRN 10/18/17 [Last Taken 10/18/17 18:00] Acetaminophen [Tylenol 325mg (*)] 325 - 650 mg PO Q4HRS PRN tab 10/26/17 [Last Taken Unknown] Aspirin [Aspirin 81mg (*)] 81 mg PO DAILY tab.chew 10/26/17 [Last Taken ] Metoprolol Tartrate [Lopressor 25 mg (*)] 37.5 mg PO BID #0 tab 10/26/17 [Last Taken 10/28/17] Warfarin Sodium [Coumadin 1MG (*)] 1 mg PO DAILY AT 4PM #60 tab 10/26/17 [Last Taken 10/27/17] traMADol [Ultram 50 mg (*)] 25 mg PO Q6HRS PRN #20 tab 10/26/17 [Last Taken 05/06] Discharge Medications: Refer to the Discharge Home Medication list for PRN reason. - Orders Services needed: Registered Nurse, Master Package Line Relief Operator, Physical Therapy, Occupational Therapy Isolation Type: None Diet Recommendation: cardiac -low fat low salt Diet Texture: Regular Texture Diet - Labs/Radiology BMP Date: 11/03/17 (started Lasix 20mg BID) - Follow Up Care Current Providers and Referrals: NONE *PRIMARY CARE P,. [Unknown] - As per Instructions
--- NOTE | 2017-11-01 16:12 | PDIAF ---
- Diagnosis Diagnosis: hypertension Code Status: Full Code - Medication Management Discharge Medications: Medications to Continue on Transfer Oxymetazoline HCl [Afrin Nasal [place]] 2 spray EACHNARE DAILY PRN 10/18/17 [Last Taken 10/18/17 18:00] Acetaminophen [Tylenol 325mg (*)] 325 - 650 mg PO Q4HRS PRN tab 10/26/17 [Last Taken Unknown] Aspirin [Aspirin 81mg (*)] 81 mg PO DAILY tab.chew 10/26/17 [Last Taken ] Metoprolol Tartrate [Lopressor 25 mg (*)] 37.5 mg PO BID #0 tab 10/26/17 [Last Taken 10/28/17] Warfarin Sodium [Coumadin 1MG (*)] 1 mg PO DAILY AT 4PM #60 tab 10/26/17 [Last Taken 10/27/17] traMADol [Ultram 50 mg (*)] 25 mg PO Q6HRS PRN #20 tab 10/26/17 [Last Taken 05/06] Discharge Medications: Refer to the Discharge Home Medication list for PRN reason. - Orders Services needed: Registered Nurse, Master Wire Splicer, Physical Therapy, Occupational Therapy Isolation Type: None Diet Recommendation: cardiac -low fat low salt Diet Texture: Regular Texture Diet - Labs/Radiology BMP Date: 11/03/17 (started Lasix 20mg BID) PT/INR Date: 11/02/17 - Follow Up Care Current Providers and Referrals: NONE *PRIMARY CARE P,. [Unknown] - As per Instructions
[2017-11-01 16:20] VITALS: BP 125/88
--- NOTE | 2017-11-01 17:13 | GDS ---
[f rep st] DISCHARGE SUMMARY DISCHARGE DIAGNOSES: 1. Hypotension. 2. Hypertensive urgency. 3. Ischemic cardiomyopathy. 4. Bilateral pleural effusions. 5. Dyspnea. 6. Coronary artery disease with recent three-vessel CABG. 7. Indeterminate troponin. 8. Sick sinus syndrome, recent pacer placed. 9. Atrial fibrillation, status post maze procedure. 10. Depressed mood. 11. Cognitive impairment. 12. Alcohol use. 13. Deconditioning. HISTORY OF PRESENT ILLNESS: An 82-year-old male with a history of coronary disease, recently underwe nt 3-vessel CABG, was discharged from [facility] on October 26. Since discharge, he developed shortness of adele th and orthopnea. No chest pain. notes that he is having a hard time catching his breath while lying in bed at night. He also has a history of mild cognitive impairment and is a poor historian. He had a left atrial thrombus removed during his recent surgery. He has known chronic atrial fibrill ation, status post Stanley maze procedure and left atrial appendage ligation. In the ER, his blood pressure was 192/125. HOSPITAL COURSE: 1. Hypertensive urgency, likely related to volume overload: He was started on low-dose lisinopril h ere, but did not tolerate it and developed hypotension, so will not continue this. He is now normote nsive. 2. Coronary artery disease: Recent 3-vessel CABG by Dr. De La Garza. Surgical incision is healing well. Will continue aspirin and beta-jazmin. He is not on a statin. He is to follow up with Dr. Frederic martinez previously scheduled on 11/07/2017. 3. Chronic atrial fibrillation: Status post Stanley maze procedure with left atrial appendage ligation and removal of left atrial thrombus. He is in normal sinus rhythm. Will continue Coumadin at 5 mg, repeat tomorrow. 4. Elevated troponin secondary to recent coronary bypass: He is chest pain free, and troponin is le ss than at discharge. 5. Volume overload: Bilateral effusions and edema. He was dosed with IV Lasix but became hypotensi ve. He underwent thoracentesis of right lung with improved symptoms. He never required oxygen. Sta rt low-dose Lasix 20 mg with BMP to be repeated. No evidence of lower extremity DVT. 6. Leukocytosis: He was afebrile, without an infectious source. Normal UA and no evidence of pneum onia. 7. Cognitive impairment: It was waxing and waning here with hospitalization. 8. Depression: I had a lengthy conversation with both patient and , and he is agreeable to star t Lexapro. Will dose this at night. 9. Ischemic cardiomyopathy: Decrease metoprolol to 12.5 b.i.d. to allow pressure with the addition of Lasix. He did not tolerate an ROSALIE inhibitor. He is to follow up with Cardiology. DISPOSITION: Patient is stable for discharge to [facility] for continued therapies. NEW MEDICATIONS: 1. Lexapro 10 mg daily. 2. Melatonin 3 mg daily. 3. Lasix 20 mg b.i.d. FOLLOWUP: 1. Dr. Flores, 12/06/2017. 2. Dr. De La Garza, 11/07/2017. 3. Repeat BMP, INR tomorrow. 4. Monitor diuresis. Time spent on discharge: Greater than 45 minutes coordinating with Case Management and discussing tr eatment and followup with the patient and . /[id number]/MODL
== END 2017-11-01 17:00 | DRG 305 ==
LOC: OBSVTOIN 12:00 → F2W 13:55
PROVIDERS: ADMIT Student in an Organized Health Care Education/Training Program; ATTEND Student in an Organized Health Care Education/Training Program
PROC: 0W993ZZ Drainage of Right Pleural Cavity, Percutaneous Approach (ICD-10-PCS; principal; 2017-10-30)
DX: I16.0 Hypertensive urgency (principal); J90 Pleural effusion, not elsewhere classified; I95.9 Hypotension, unspecified; I25.5 Ischemic cardiomyopathy; R06.00 Dyspnea, unspecified; I25.10 Atherosclerotic heart disease of native coronary artery without angina pectoris; I48.2 Chronic atrial fibrillation; F32.9 Major depressive disorder, single episode, unspecified; E87.70 Fluid overload, unspecified; F03.90 Unspecified dementia, unspecified severity, without behavioral disturbance, psychotic disturbance, mood disturbance, and anxiety; G47.00 Insomnia, unspecified; Z72.89 Other problems related to lifestyle; Z79.01 Long term (current) use of anticoagulants; Z95.1 Presence of aortocoronary bypass graft; Z95.0 Presence of cardiac pacemaker
CPT/HCPCS: 97116-GP; 97161-GP; 97165-GO; 97530-GP; 97535-GO; G8978-GP-CJ; G8979-GP-CI; G8987-GO-CJ; G8988-GO-CI; J1650; J1940

== ENCOUNTER → 2017-11-07 | Outpatient (CLI) | payer OTHER, MEDICARE | LOC: FIMAGING 10:39 | PROVIDERS: ATTEND Thoracic Surgery (Cardiothoracic Vascular Surgery) | DX: Z09 Encounter for follow-up examination after completed treatment for conditions other than malignant neoplasm (principal); J90 Pleural effusion, not elsewhere classified; J98.11 Atelectasis; Z95.1 Presence of aortocoronary bypass graft; Z86.79 Personal history of other diseases of the circulatory system; Z98.890 Other specified postprocedural states ==

== ENCOUNTER → 2017-11-28 | Outpatient (CLI) | payer OTHER, MEDICARE | LOC: FIMAGING 09:36 | PROVIDERS: ATTEND Thoracic Surgery (Cardiothoracic Vascular Surgery) | DX: J90 Pleural effusion, not elsewhere classified (principal); Z86.79 Personal history of other diseases of the circulatory system; Z95.1 Presence of aortocoronary bypass graft; Z98.890 Other specified postprocedural states ==